=== PATIENT | female | born 1985 | race Two or more races ===

== ENCOUNTER 2022-08-04 21:11 | Emergency (ER) | payer MEDICAID, OTHER, SELFPAY ==
[2022-08-04 22:25] VITALS: BP 123/78; PULSE 105; RESP 18; TEMP 38.1; O2SAT 98; BMI 29.2
[2022-08-04 22:59] LABS: COVID-19 Test Negative (Negative)
[2022-08-04 23:03] LABS: IDNOW Serial# 55D5AD1C; Influenza A Positive (Negative); Influenza B2 Negative (Negative)
[2022-08-05 01:40] VITALS: BP 122/72; PULSE 102; RESP 19; TEMP 37.1; O2SAT 98
[2022-08-05 06:00] VITALS: BP 119/61; PULSE 100; RESP 20; TEMP 37.3; O2SAT 98
[2022-08-05 08:31] LABS: Appearance Urine Clear; Color Urine Yellow; Glucose Urine UA Negative (Negative); Leukocyte Esterase Urine Negative (Negative); Nitrite Urine Negative (Negative); PH 5.5 (5.0-9.0); Urine Blood Negative (Negative); Urine Ketones Negative (Negative); Urine Protein Negative (Neg-Trace)
--- NOTE | 2022-08-05 08:46 | ED_ITS ---
HPI - General Adult General Chief complaint: General Medical Stated complaint: lower back pain, leg pain Time Seen by Provider: 08/05/22 07:57 Source: patient Mode of arrival: ambulatory Limitations: no limitations History of Present Illness HPI narrative: 37 yo female presents to the ER with acute on chronic low back pain, bilateral heel pain for the last few days as well as intermittent chest marvin pains. She a lso has nasal congestion and body aches. She denies fever, SOB, N/V/D or abdominal pain. She reports her low back pain has been present for the last 6 months but acutely worsened the last week or so without any trauma or injury. No radiation of the pain, it is worse with movement. She also reports bilateral heel pain, present chronically and worse in the mornings. Her chest pain is worse with movement and palpation. It comes and goes and not currently present. MD complaint: back pain, feet pain, chest pain Onset (ago): week(s) (1) Location: chest and back Severity: moderate Severity scale (1-10): 6 Quality: aching Pain Consistency: intermittent Relieving factors: rest Exacerbating factors: movement Associated symptoms: chest pain, headaches, loss of appetite and malaise Treatments prior to arrival: none Related Data Previous Rx's Medication Instructions Recorded ibuprofen 600 mg tablet 600 mg PO Q8H PRN pain #14 tabs 08/05/22 lidocaine 5 % topical patch 1 patch topical DAILY #15 ea 08/05/22 Allergies Allergy/AdvReac Type Severity Reaction Status Date / Time No Known Allergies Allergy Unverified 07/24/20 17:18 [No Known Allergies*] Review of Systems Review of Systems: Constitutional: No Fever, No Chills ENT/Mouth: + sore throat, No Rhinorrhea, No Swallowing Difficulty Eyes: No Eye Pain, No Swelling, No Redness Cardiovascular: + Chest Pain, No SOB, No Orthopnea, No Edema Respiratory: No Cough, No Sputum, No Wheezing, No dyspnea Gastrointestinal: No Nausea, No Vomiting, No Diarrhea, No abdominal Pain Genitourinary: No Dysuria, No Urinary Frequency, No Hematuria Musculoskeletal: + joint pain, + Myalgias Skin: No Skin Lesions, No rash Neuro: No Weakness, No Numbness, No Dizziness, + Headache Psych: No Anxiety/Panic, No Depression Heme/Lymph: No Bruising, No Lymphadenopathy PMFSH Social History Social History Advance Directives: No Advance Directives Information Provided: No Physical Exam ED Vital Signs: Vital Signs - 24 hr 08/04/22 22:25 08/05/22 01:40 08/05/22 06:00 Temperature 100.5 F H 98.8 F 99.2 F Pulse Rate 105 H 102 H 100 Respiratory Rate 18 19 20 Blood Pressure 123/78 122/72 119/61 Pulse Oximetry 98 98 98 Oxygen Delivery Method Room Air Room Air Room Air BMI result Body Mass Index 29.2 Appearance: Alert. Oriented X3. No acute distress. Eyes: Pupils equal, round and reactive to light. ENT: Pharynx normal. Neck: Normal inspection. Neck supple. CVS: Normal heart rate and rhythm. Pulses normal. Respiratory: No respiratory distress. Breath sounds normal. Abdomen: Soft and nontender. +BS x4 Back: lumbar area with soft tissue tenderness bilaterally, no midline tenderness. no CVA tenderness. normal ROM. Skin: Skin warm and dry. Normal skin color. Normal skin turgor. No rashes. Extremities: No lower extremity edema. Bilateral calcaneous tenderness. Neuro: Oriented X 3. No motor deficit. No sensory deficit. Course Course Course Narrative: 29-year-old female presents to the ER with acute on chronic low back pain, feet pain as well as intermittent chest pains. Her pain in her chest seems to be in her chest wall, it is reproducible. She also has nasal congestion and some URI symptoms. She was tested for COVID in triage and turned up to be COVID positive. This can explain her exacerbation and her muscular pain. She also has pain in her bilateral heels, this is consistent with bilateral plantar fasciitis. We discussed this diagnosis and management. At this time she is stable for discharge home with NSAIDs as needed for back pain. Her COVID symptoms seem to be mild at this time. She is unvaccinated with no pre-existing pulmonary conditions. Return precautions were discussed. Stable for DC. Medical Decision Making Lab Data Labs: Lab Results 08/04/22 08/04/22 08/05/22 Range/Units 22:34 22:34 08:21 Urine Color Yellow Urine Appearance Clear Urine pH 5.5 (5.0-9.0) Ur Specific [place] 1.010 (1.005-1.025) Urine Protein Negative (Neg-Trace) mg/dL Urine Glucose (UA) Negative (Negative) mg/dL Urine Ketones Negative (Negative) mg/dL Urine Blood Negative (Negative) Urine Nitrite Negative (Negative) Ur Leukocyte Esterase Negative (Negative) COVID-19 (JEZ) Negative (Negative) COVID-19 Clin Com See Note Influenza Type A (MACIEJ) Positive A (Negative) Influenza Type B (MACIEJ) Negative (Negative) Influenza A & B Note See Note Discharge Plan Discharge Clinical Impression: COVID-19 Patient Disposition: Home, Self-Care Instructions: Covid-19 Viral Syndrome and Novel Coronavirus (ED) Hey/Ath, Plantar Fasciitis (ED) Additional Instructions: You were found to be COVID-19 POSITIVE today. Your urine test was normal. Your exam and oxygen levels were normal. Rest. Drink plenty of fluids. Do not go out in public while you are not feeling well. Take over the counter cold/flu medications as needed for your symptoms. Take Tylenol and/or Motrin as needed for fevers and body aches. Follow up with your doctor this week. If you develop new or worsening symptoms call 911 or come back to the ER for further evaluation. Prescriptions: New ibuprofen 600 mg tablet 600 mg PO Q8H PRN (Reason: pain) Qty: 14 0RF lidocaine 5 % adhesive patch,medicated 1 patch topical DAILY Qty: 15 0RF Rx Instructions: leave on most painful area for up to 12 hrs Stand Alone Forms: Work/School Release
== END 2022-08-05 11:05 | disposition home or self-care (01) ==
PROVIDERS: Physician Assistant; Emergency Provider Emergency Medicine
DX: U07.1 COVID-19 (principal); J11.1 Influenza due to unidentified influenza virus with other respiratory manifestations; M54.50 Low back pain, unspecified; M72.2 Plantar fascial fibromatosis
CPT/HCPCS: 81003; 87502; 87635; 99283

== ENCOUNTER 2023-01-11 12:13 | Outpatient (REF) | payer MEDICAID, OTHER, SELFPAY ==
--- NOTE | ~2023-01-11 | XR_ITS ---
EXAMINATION: LUMBAR SPINE AND LEFT SHOULDER. CLINICAL INFORMATION: Low back pain COMPARISON: None TECHNIQUE: Lumbar spine 3 views. Left shoulder 4 views. FINDINGS: Lumbar spine: There is normal lumbar lordosis. The vertebral heights and alignment are normal. There is loss of L5-S1 disc height. Rest of the disc heights are normal. There is no acute fracture, dislocation or lytic process seen. The paravertebral soft tissues are normal. SI joints are symmetrical and normal. Left shoulder: The glenohumeral joint space and AC joint space is preserved. No visible acute fracture, dislocation or subluxation seen. No soft tissue calcification seen. XR/XR lumbar spine 2-3V IMPRESSION: 1. Mild degenerative disc changes L5-S1 disc level. No visible acute fracture, dislocation or lytic process seen. 2. Unremarkable left shoulder exam.
--- NOTE | ~2023-01-11 | XR_ITS ---
EXAMINATION: LUMBAR SPINE AND LEFT SHOULDER. CLINICAL INFORMATION: Low back pain COMPARISON: None TECHNIQUE: Lumbar spine 3 views. Left shoulder 4 views. FINDINGS: Lumbar spine: There is normal lumbar lordosis. The vertebral heights and alignment are normal. There is loss of L5-S1 disc height. Rest of the disc heights are normal. There is no acute fracture, dislocation or lytic process seen. The paravertebral soft tissues are normal. SI joints are symmetrical and normal. Left shoulder: The glenohumeral joint space and AC joint space is preserved. No visible acute fracture, dislocation or subluxation seen. No soft tissue calcification seen. XR/XR shoulder LT min 2V IMPRESSION: 1. Mild degenerative disc changes L5-S1 disc level. No visible acute fracture, dislocation or lytic process seen. 2. Unremarkable left shoulder exam.
== END 2023-01-11 12:14 | disposition home or self-care (01) ==
LOC: HO.XRAY 12:13
PROVIDERS: PCP Family Medicine; Visit Provider Family Medicine
DX: M54.50 Low back pain, unspecified (principal); M25.512 Pain in left shoulder
CPT/HCPCS: 72100; 73030

== ENCOUNTER 2024-10-16 09:52 | Outpatient (REF) | payer MEDICAID, OTHER, SELFPAY ==
--- NOTE | ~2024-10-16 | MM_ITS ---
EXAMINATION: MM DIAGNOSTIC DIGITAL BREAST TOMOSYNTHESIS, BILATERAL Limited left breast ultrasound. CLINICAL INFORMATION: 39-year-old female with palpable left breast lump. COMPARISON: Mammography: Comparison is made with relevant prior exams. TECHNIQUE: Digital breast mammography with tomosynthesis is performed in both the craniocaudal and mediolateral oblique views along with computer-aided detection Limited left breast ultrasound. FINDINGS: The breasts are heterogeneously dense, which may obscure small masses (ACR BI-RADS breast composition Category c). There is a BB marker in the upper outer quadrant with an underlying 2 cm spiculated mass at posterior depth. No suspicious calcifications or other abnormal findings. Targeted color Doppler ultrasound scanning in the upper outer quadrant area of patient's pain demonstrates a irregular solid mass at 3:00 13 cm from nipple measuring 18 x 17 x 13 mm which correlates with the spiculated mass seen on mammography. Targeted ultrasound scanning in the retroareolar region and upper central breast and upper outer quadrant otherwise demonstrates normal fibroglandular breast tissue. Targeted color Doppler ultrasound scanning in the left axilla demonstrates a irregular mass which could represent a replaced lymph node. Otherwise there are a few normal axillary lymph nodes. Results are provided to the patient at time of visit by the technologist. MM/MM tomosynthesis diagnostic BI IMPRESSION: Solid irregular mass at 3:00. Recommend histology with ultrasound-guided core needle biopsy at this time. The findings and recommendations were discussed with the patient the procedure will be scheduled. Solid mass in the left axilla. Ultrasound-guided core needle biopsy is recommended at this time. The findings and recommendations were discussed with the patient the procedure will be scheduled. The patient has dense breast tissue. Recommend breast MRI for further evaluation. ASSESSMENT: BI-RADS BI-RADS 4 - Suspicious finding RECOMMENDATION: Left breast biopsy and left axillary biopsy recommended at this time. This patient's information was entered into a reminder system with a target due date for their next mammogram. Electronically signed by: Dulce Richardson DO 10/16/2024 11:27 AM HAN
== END 2024-10-16 09:53 | disposition home or self-care (01) ==
LOC: HO.MAMMO 09:52
PROVIDERS: Visit Provider Family Medicine
DX: N63.23 Unspecified lump in the left breast, lower outer quadrant (principal)
CPT/HCPCS: 76642; 77062; 77066

== ENCOUNTER → 2024-10-16 10:00 | Outpatient (BNV) | payer MEDICAID, SELFPAY | PROVIDERS: Visit Provider Internal Medicine | DX: N63.23 Unspecified lump in the left breast, lower outer quadrant (principal) | CPT/HCPCS: 76642; 77062; 77066 ==

== ENCOUNTER 2024-11-02 14:47 | Outpatient (REF) | payer MEDICAID, OTHER, SELFPAY ==
--- NOTE | ~2024-11-02 | MR_ITS ---
EXAMINATION: MR BREAST WITHOUT AND WITH CONTRAST, BILATERAL CLINICAL INFORMATION: Suspicious areas seen on recent mammogram and ultrasound of the left breast for which biopsy is recommended and scheduled. COMPARISON: Comparison is made to available prior examinations including diagnostic mammogram and ultrasound October 16, 2024. TECHNIQUE: MR imaging of the breast was performed using T1, T2 and fat saturated techniques. Dynamic multiphase imaging was also performed after administration of intravenous gadolinium contrast agent. Computer generated 3-D reconstruction was utilized by the radiologist in the interpretation of this examination. FINDINGS: There is extreme dense fibroglandular breast tissue with moderate background enhancement with bilateral scattered enhancing foci. LEFT BREAST: There is a solid irregular enhancing mass in the central outer left breast far posterior depth 3:00 15 cm from the nipple measuring 21 mm anterior to posterior by 19 mm transverse by 21 mm superior to inferior series 1033 image 95/136. Enlarged left axillary lymph node seen on prior diagnostic left axillary ultrasound which is scheduled for biopsy today series 1033 image 34/136. No other suspicious enhancing masses or areas of nonmass enhancement. No architectural distortion. No internal mammary adenopathy. RIGHT BREAST: A few scattered enhancing foci in the upper outer breast series 1033 images 77 [id number] 62/136. These likely represent background foci of enhancement. Question prominent axillary lymph node series 1033 image 32/136. No other suspicious enhancing masses or areas of nonmass enhancement. No architectural distortion. No internal mammary adenopathy. Limited views of the chest and abdomen are unremarkable. MR/MR breast BI wo/w con IMPRESSION: Left: Suspicious irregular solid mass in the central outer left breast far posterior depth and enlarged axillary lymph node. Patient is scheduled for ultrasound-guided core needle biopsy of both areas today. Right: 1. Probably benign enhancing foci in the upper outer right breast for which second look MRI directed ultrasound is recommended and if normal a six-month follow-up MRI is recommended for further evaluation of stability. Second look MRI directed ultrasound was be performed today and was benign therefore six month followup MRI recommended. 2. Question prominent axillary lymph nodes. Ultrasound is recommended and was be performed today confirming normal axillary tissue. ASSESSMENT: LEFT BREAST: BI-RADS 4 suspicious. RIGHT BREAST: BI-RADS 3 probably benign. Recommend six-month follow-up MRI for further evaluation of stability. RECOMMENDATIONS: BI-RADS 4 suspicious findings in the left breast. Ultrasound-guided core needle biopsy is recommended and will be performed today. Recommend 6 month follow-up breast MRI for further evaluation of stability probably benign enhancing foci in the right breast. Electronically signed by: Dulce Richardson DO 11/08/2024 12:14 PM HAN
[2024-11-02] MEDS: gadobutroL 7.5 ML VIAL IVPUSH (16:17)
== END 2024-11-02 14:48 | disposition home or self-care (01) ==
LOC: HO.MRI 14:47
PROVIDERS: Visit Provider Family Medicine
DX: R92.8 Other abnormal and inconclusive findings on diagnostic imaging of breast (principal); N63.21 Unspecified lump in the left breast, upper outer quadrant
CPT/HCPCS: 77049; A9585

== ENCOUNTER → 2024-11-02 15:19 | Outpatient (BNV) | payer MEDICAID, SELFPAY | PROVIDERS: Visit Provider Internal Medicine | DX: N63.21 Unspecified lump in the left breast, upper outer quadrant (principal); R92.8 Other abnormal and inconclusive findings on diagnostic imaging of breast | CPT/HCPCS: 77049 ==

== ENCOUNTER 2024-11-08 08:23 | Outpatient (AMB) | payer MEDICAID, SELFPAY ==
[2024-11-08 08:26] VITALS: BP 132/74; PULSE 88; BMI 30.4
--- NOTE | 2024-11-08 08:26 | A.OFFVIS_ITS ---
Vital Signs 3 11/08/24 08:26 Height 5 ft 1 in Weight 161 lb BMI 30.4 BP 132/74 Blood Pressure Location Rt brachial Position Sitting Pulse 88 Intake Visit Reasons: Breast consultation before 10am mammo appt Intake Note: Patient referred by [facility] for consultation before Lt br bx. Patient c/o: lump on Lt br painful at times. Denies rash, nipple discharge. No family hx of breast CA> Cytopathologist Required: No Accompanied by: Mother Nilxa Allergies No Known Allergies [No Known Allergies*] Allergy (Unverified 11/08/24 08:29) Medication List - Last Reconciled 11/08/24 by Mariusz Lassiter MD ibuprofen 600 mg PO Q8H PRN lidocaine 5% 1 patch topical DAILY HPI Comments Details: 39-year-old female patient presenting with a 2 month history of a palpable mass located in the left breast at the outer quadrant. She denies any recent changes in the size of the lump and denies a previous history of breast surgery. She did have a previous lump located in the nipple area which was determined to be benign many years ago. She reports some pain associated with the new lump in the left breast. She denies a family history of breast problems breast cancer. She is with a 17-year-old and 7-year-old child. She underwent evaluation with a mammogram bilateral and ultrasound left breast which confirmed a density in the 3 o'clock position and axilla felt to be suspicious for malignancy. She is scheduled for a ultrasound-guided [facility] Medical History delivery delivered Social History Alcohol intake: never Patient Tobacco Use Status: Never used Tobacco Review of Systems Const All systems reviewed & are unremarkable except as noted in HPI and below Physical Exam Vital Signs: Last Vital Signs Pulse 88 11/08/24 08:26 BP 132/74 11/08/24 08:26 BMI result Body Mass Index 30.4 Const General: cooperative and no acute distress Nutritional Appearance: well nourished Orientation/consciousness: patient oriented x3 Limitations: no limitations HEENT Head: Yes normocephalic and Yes atraumatic Ears: hearing grossly normal bilaterally Chest Other: Left breast: No skin change, no nipple retraction, no nipple discharge, palpable fullness in the upper outer quadrant left breast, mobile within the breast tissue with no overlying skin changes and no fixation the chest wall, no definitely an enlarged lymph nodes palpable. Right breast: No skin change, no nipple retraction, no nipple discharge, palpable area of fullness in the 9 o'clock position mobile within the breast tissue suggestive of thickened breast tissue, no enlarged lymph nodes Chest/axillae images: 2 1. Site of palpable density Resp Effort & Inspection: normal respiratory effort, no audible wheezes, no cough and no respiratory distress Cardio Jugular venous distension: no JVD GI Inspection: Yes normal to inspection Skin Other: Warm, dry, no rash Neuro General: patient oriented x3 Extrem General: Yes no clubbing, cyanosis or edema Assessment & Plan Assessment & Plan (1) delivery delivered: Code(s): O82 - Encounter for delivery without indication (2) Left breast mass: Code(s): N63.20 - Unspecified lump in the left breast, unspecified quadrant Category: Medical Qualifiers: Breast mass location: overlapping quadrants Qualified Code(s): N63.25 - Unspecified lump in the left breast, overlapping quadrants (3) Abnormal mammogram of left breast: Code(s): R92.8 - Other abnormal and inconclusive findings on diagnostic imaging of breast Category: Medical (4) Abnormal ultrasound of breast: Code(s): R92.8 - Other abnormal and inconclusive findings on diagnostic imaging of breast Category: Medical Plan 39-year-old female patient with a 2 month history of a palpable breast mass in the left breast at the 3 o'clock position. Workup with mammogram and ultrasound revealed a suspicious density for which an ultrasound-guided core biopsy is scheduled for later today. An MRI was performed but the report is not available at the time of this dictation. I recommended follow-up in approximately 1 week once the pathology results were back to discuss treatment options. She expressed understanding and agrees with the plan. Orders: Orders 2 US breast ndl core bio ea add Today N63.20 - Unspecified lump in the left breast, unspecified quadrant, R92.8 - Other abnormal and inconclusive findings on diagnostic imaging of breast US breast ndl core biopsy LT Today N63.20 - Unspecified lump in the left breast, unspecified quadrant, R92.8 - Other abnormal and inconclusive findings on diagnostic imaging of breast Coding Level of Care Code New Pt Level 4 (61217) Diagnoses delivery delivered O82 Mass overlapping multiple quadrants of left breast N63.25 Breast mass location: overlapping quadrants Abnormal mammogram of left breast R92.8 Abnormal ultrasound of breast R92.8
== END 2024-11-08 08:54 | disposition home or self-care (01) ==
LOC: HO.HGS 08:23
PROVIDERS: Visit Provider Surgery
DX: O82 Encounter for cesarean delivery without indication (principal); N63.25 Unspecified lump in the left breast, overlapping quadrants; R92.8 Other abnormal and inconclusive findings on diagnostic imaging of breast
CPT/HCPCS: 99204

== ENCOUNTER 2024-11-08 09:00 | Outpatient (REF) | payer MEDICAID, OTHER, SELFPAY ==
--- NOTE | ~2024-11-08 | US_ITS ---
EXAMINATION: US DIAGNOSTIC ULTRASOUND BREAST, RIGHT CLINICAL INFORMATION: Suspicious masses in the left breast ultrasound and left axilla here today for core needle biopsy of both areas. Recent breast MRI demonstrated probably benign enhancing foci in the right breast upper outer quadrant and questionable prominent right axillary lymph nodes. Ultrasound to evaluate area seen on MRI.. COMPARISON: Comparison is made with relevant prior imaging. TECHNIQUE: Ultrasound of the breast is performed with real-time melendrez scale imaging and color Doppler. FINDINGS: Targeted color Doppler ultrasound scanning in the upper outer quadrant area of enhancing foci seen on recent MRI demonstrates normal fibronodular breast tissue. There is an incidental simple cyst at 10:00 2 cm from nipple measuring 7 x 8 x 6 mm. This is benign. There is no sonographic abnormality. Targeted color Doppler ultrasound in the axilla demonstrates normal axillary tissue. There is no sonographic abnormality. Results are discussed with the patient at time of visit. US/US breast RT limited mamm only IMPRESSION: Right: 1. No sonographic abnormality to account for the enhancing foci in the upper outer quadrant of the right breast on recent MRI. Recommend 6 month follow-up MRI for further evaluation of stability. 2. Simple cyst on ultrasound. Benign. 3. Normal axillary tissue without evidence of abnormal lymph node. Negative. ASSESSMENT: BI-RADS 2: Benign RECOMMENDATION: Recommend biopsy of suspicious left axillary lymph node and left breast mass at this time. The biopsy will be performed today. Recommend 6 month follow-up MRI for further evaluation of stability probably benign enhancing foci in the right breast on MRI. This patient's information was entered into a reminder system with a target due date for their next mammogram. Electronically signed by: Dulce Richardson DO 11/08/2024 12:12 PM HAN
--- NOTE | ~2024-11-08 | MM_ITS ---
ADDENDUM #1 ADDENDUM: Ultrasound-guided core needle biopsy 3:00 mass left breast: Invasive ductal carcinoma and ductal carcinoma in situ. Results are malignant and concordant. Recommend breast surgical consultation for excision and further management. Ultrasound-guided core needle biopsy left axilla demonstrates fibrovascular tissue no lymph node or breast tissue present for evaluation. These findings are benign but DISCORDANT. Recommend excision of this left axillary abnormal lymph node. Electronically signed by: Dulce Richardson DO 11/19/2024 01:42 PM EST RP ORIGINAL REPORT EXAMINATION: ULTRASOUND GUIDED CORE BIOPSY BREAST, LEFT Breast AND LEFT AXILLA. POST PROCEDURE DIGITAL MAMMOGRAM, LEFT CLINICAL INFORMATION: Suspicious left breast mass and left axillary lymph node. COMPARISON: Comparison is made with available prior examinations. FINDINGS: Proper informed consent is obtained from the patient after discussion of the procedure, potential risks and complications, and alternatives. Patient was given an opportunity for questions. The patient appeared to understand. The patient consented to the procedure and signed the consent form . Left Breast: GUIDANCE: Ultrasound-guided; aseptic technique. LESION: Solid irregular mass at 3-4:00 15 mm from nipple. ANESTHESIA: 10 mL 1% lidocaine. NEEDLE: 14-gauge. CLIP: open coil Left Axilla: GUIDANCE: Ultrasound-guided; aseptic technique. LESION: Englarge left axillary lymph node. ANESTHESIA: 10 mL 1% lidocaine. NEEDLE: 14-gauge. CLIP butterfly shaped metallic clip. POST PROCEDURE UNILATERAL DIGITAL MAMMOGRAM: The post biopsy mammogram is performed in separate room using separate digital mammography equipment from the biopsy procedure Clip is in satisfactory positioning both the left breast and axilla. The patient tolerated the procedure well. No immediate complications. Home instructions reviewed with the patient. Final pathology results are pending. IMPRESSION: 1. Status post ultrasound-guided core biopsy left breast and left axilla. 2. Pathology pending. An addendum report will be issued. Electronically signed by: Dulce Richardson DO 11/08/2024 01:01 PM EST RP MM/MM tomosynthesis diagnostic LT IMPRESSION: 1. Status post ultrasound-guided core biopsy left breast and left axilla. 2. Pathology pending. An addendum report will be issued. Electronically signed by: Dulce Richardson DO 11/08/2024 01:01 PM HAN
[2024-11-08] MEDS: Lidocaine HCl 1 % 20 ML VIAL SUBCUT (11:19)
[2024-11-08] MEDS: Sodium Bicarbonate 8.4% 50 MEQ/50 ML VIAL SUBCUT (11:20)
== END 2024-11-08 09:01 | disposition home or self-care (01) ==
LOC: HO.MAMMO 09:00
PROVIDERS: PCP Family Medicine; Visit Provider Surgery
DX: C50.812 Malignant neoplasm of overlapping sites of left female breast (principal); R92.8 Other abnormal and inconclusive findings on diagnostic imaging of breast
CPT/HCPCS: 19083; 19084; 76642; 77061; 77065; 88305; 88341; 88342; 88360; 99202; A4648; C1894; J2003

== ENCOUNTER → 2024-11-08 10:00 | Outpatient (BNV) | payer MEDICAID, SELFPAY | PROVIDERS: PCP Family Medicine; Visit Provider Internal Medicine | DX: N63.23 Unspecified lump in the left breast, lower outer quadrant (principal) | CPT/HCPCS: 19083; 19084; 76642; 77065 ==

== ENCOUNTER 2024-11-16 10:42 | Outpatient (AMB) | payer MEDICAID, SELFPAY ==
--- NOTE | 2024-11-16 10:32 | A.OFFVIS_ITS ---
Vital Signs 3 11/16/24 10:38 Height 5 ft 1 in Weight 164 lb BMI 31.0 BP 125/60 Blood Pressure Location Lt brachial Position Sitting Pulse 80 Intake Visit Reasons: Biopsy results Intake Note: Patient is seen in office for biopsy results, following abnormal mammogram of the left breast. Pt c/o:admits to sore and tender around the left axilla Sight Effects Specialist Required: No Accompanied by: Family/Other Allergies No Known Allergies [No Known Allergies*] Allergy (Unverified 11/16/24 10:47) Medication List - Last Reconciled 11/20/24 by Mariusz Lassiter MD ibuprofen 600 mg PO Q8H PRN lidocaine 5% 1 patch topical DAILY HPI Comments Details: 39-year-old female patient presenting with a 2 month history of a palpable mass located in the left breast at the outer quadrant. She denies any recent changes in the size of the lump and denies a previous history of breast surgery. She did have a previous lump located in the nipple area which was determined to be benign many years ago. She reports some pain associated with the new lump in the left breast. She denies a family history of breast problems breast cancer. She is with a 17-year-old and 7-year-old child. She underwent evaluation with a mammogram bilateral and ultrasound left breast which confirmed a density in the 3 o'clock position and axilla felt to be suspicious for malignancy. She underwent ultrasound-guided core biopsy on 11/08/2024 at the [facility]. 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 Biopsy of a left axillary node revealed fibrovascular tissue only with no lymph node or breast tissue present for evaluation. Immunohistochemical stains: Estrogen receptor positive, progesterone receptor positive, HER2 Ruth negative, Ki-67 low. ([id number]). 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 delivery delivered Social History Alcohol intake: never Patient Tobacco Use Status: Never used Tobacco Review of Systems Const All systems reviewed & are unremarkable except as noted in HPI and below Physical Exam Vital Signs: Last Vital Signs Pulse 80 11/16/24 10:38 BP 125/60 11/16/24 10:38 BMI result Body Mass Index 31.0 Const General: cooperative and no acute distress Nutritional Appearance: well nourished Orientation/consciousness: patient oriented x3 Limitations: no limitations HEENT Head: Yes normocephalic and Yes atraumatic Ears: hearing grossly normal bilaterally Chest Other: Left breast: No skin change, no nipple retraction, no nipple discharge, palpable fullness in the upper outer quadrant left breast, mobile within the breast tissue with no overlying skin changes and no fixation the chest wall, no definitely an enlarged lymph nodes palpable. Right breast: No skin change, no nipple retraction, no nipple discharge, palpable area of fullness in the 9 o'clock position mobile within the breast tissue suggestive of thickened breast tissue, no enlarged lymph nodes Chest/axillae images: 2 1. Palpable mass 3 o'clock position left breast Resp Effort & Inspection: normal respiratory effort, no audible wheezes, no cough and no respiratory distress Cardio Jugular venous distension: no JVD GI Inspection: Yes normal to inspection Skin Other: Warm, dry, no rash Neuro General: patient oriented x3 Extrem General: Yes no clubbing, cyanosis or edema Assessment & Plan Assessment & Plan (1) Invasive ductal carcinoma of left breast: Code(s): C50.912 - Malignant neoplasm of unspecified site of left female breast Category: Medical (2) Ductal carcinoma in situ of left breast: Code(s): D05.12 - Intraductal carcinoma in situ of left breast Category: Medical (3) Abnormal mammogram of left breast: Code(s): R92.8 - Other abnormal and inconclusive findings on diagnostic imaging of breast Category: Medical (4) Abnormal ultrasound of breast: Code(s): R92.8 - Other abnormal and inconclusive findings on diagnostic imaging of breast Category: Medical Plan 39-year-old female patient with a 2 month history of a palpable breast mass in the left breast at the 3 o'clock position. Subsequent ultrasound-guided core biopsy revealed an invasive ductal carcinoma with DCIS. We discussed the surgical options including left breast lumpectomy with localizer and left axillary sentinel node biopsy. After discussion of the procedure, risks, and alternatives, she consents to the surgery. Coding Level of Care Code Est Pt Level 3 (32771) Diagnoses Invasive ductal carcinoma of left breast C50.912 Ductal carcinoma in situ of left breast D05.12 Abnormal mammogram of left breast R92.8 Abnormal ultrasound of breast R92.8
[2024-11-16 10:38] VITALS: BP 125/60; PULSE 80; BMI 31.0
== END 2024-11-16 11:23 | disposition home or self-care (01) ==
PROVIDERS: Visit Provider Surgery
DX: C50.812 Malignant neoplasm of overlapping sites of left female breast (principal); R92.8 Other abnormal and inconclusive findings on diagnostic imaging of breast
CPT/HCPCS: 99213

== ENCOUNTER → 2024-11-16 10:42 | Outpatient (BNVA) | payer MEDICAID, OTHER, SELFPAY | PROVIDERS: Visit Provider Surgery | DX: R92.8 Other abnormal and inconclusive findings on diagnostic imaging of breast (principal); D05.12 Intraductal carcinoma in situ of left breast | CPT/HCPCS: 99212 ==

== ENCOUNTER 2024-11-29 08:50 | Outpatient (REF) | payer MEDICAID, OTHER, SELFPAY ==
--- NOTE | ~2024-11-29 | US_ITS ---
EXAMINATION: ULTRASOUND GUIDED RF ID TAG LOCALIZATION OF LEFT BREAST, UNILATERAL LEFT DIAGNOSTIC MAMMOGRAM Ultrasound-guided RF ID tag localization of the left axilla. HISTORY: Female, 39 years of age, scheduled for needle localization of biopsy-proven invasive ductal carcinoma in her left breast. A clip with coil shape indicates the site of prior biopsy. Enlarged left axillary lymph node with benign pathology however was discordant and therefore tag localization was requested. PROCEDURE: The entire procedure was explained to the patient who gave written consent. A pre-procedure timeout confirmed the name and date of the patient as well as the sideand sites of the lesion to be localized (LEFT). Mass at 3-4 o'clock 15 cm from the nipple: The lesion was localized under ultrasound. Using aseptic technique and 2% Lidocaine for local anesthesia, a 5 cm TAG needle was advanced into the lesion under ultrasound guidance until the tip of the needle was in appropriate position. The RFID TAG was placed adjacent to the coil marker clip. Left axilla enlarged lymph node: The axillary node was localized under ultrasound. Using aseptic technique and lidocaine for local anesthesia a 7 cm tag needle was advanced into the lesion under ultrasound guidance until its tip of the needle was in appropriate position. The R FID TAG was placed at the enlarged lymph node in the axilla adjacent to the butterfly clip. Post procedure mammogram show the TAGs to be in good position relative to the lesions. There were no immediate complications. A sterile dressing was applied to the localization site. US/US Breast RF Tag Device Addl IMPRESSION: Technically successful RF ID localization of a mass in the LEFT breast under ultrasound guidance and enlarged left axillary lymph node. Electronically signed by: Dulce Richardson DO 11/30/2024 12:40 PM EST
--- NOTE | ~2024-11-29 | US_ITS ---
EXAMINATION: ULTRASOUND GUIDED RF ID TAG LOCALIZATION OF LEFT BREAST, UNILATERAL LEFT DIAGNOSTIC MAMMOGRAM Ultrasound-guided RF ID tag localization of the left axilla. HISTORY: Female, 39 years of age, scheduled for needle localization of biopsy-proven invasive ductal carcinoma in her left breast. A clip with coil shape indicates the site of prior biopsy. Enlarged left axillary lymph node with benign pathology however was discordant and therefore tag localization was requested. PROCEDURE: The entire procedure was explained to the patient who gave written consent. A pre-procedure timeout confirmed the name and date of the patient as well as the sideand sites of the lesion to be localized (LEFT). Mass at 3-4 o'clock 15 cm from the nipple: The lesion was localized under ultrasound. Using aseptic technique and 2% Lidocaine for local anesthesia, a 5 cm TAG needle was advanced into the lesion under ultrasound guidance until the tip of the needle was in appropriate position. The RFID TAG was placed adjacent to the coil marker clip. Left axilla enlarged lymph node: The axillary node was localized under ultrasound. Using aseptic technique and lidocaine for local anesthesia a 7 cm tag needle was advanced into the lesion under ultrasound guidance until its tip of the needle was in appropriate position. The R FID TAG was placed at the enlarged lymph node in the axilla adjacent to the butterfly clip. Post procedure mammogram show the TAGs to be in good position relative to the lesions. There were no immediate complications. A sterile dressing was applied to the localization site. US/US Breast RF Tag Device Left IMPRESSION: Technically successful RF ID localization of a mass in the LEFT breast under ultrasound guidance and enlarged left axillary lymph node. Electronically signed by: Dulce Richardson DO 11/30/2024 12:40 PM [facility]
== END 2024-11-29 08:51 | disposition home or self-care (01) ==
LOC: HO.MAMMO 08:50
PROVIDERS: PCP Family Medicine; Visit Provider Surgery
DX: C50.912 Malignant neoplasm of unspecified site of left female breast (principal)
CPT/HCPCS: 19285; 19286; 77061; 77065; C1819

== ENCOUNTER → 2024-11-29 09:58 | Outpatient (BNV) | payer MEDICAID, SELFPAY | PROVIDERS: PCP Family Medicine; Visit Provider Internal Medicine | DX: C50.812 Malignant neoplasm of overlapping sites of left female breast (principal) | CPT/HCPCS: 19285; 19286; 77065 ==

== ENCOUNTER 2024-12-03 06:43 | Day surgery (SDC) | payer MEDICAID, OTHER, SELFPAY ==
[2024-12-03] VITALS (11 sets, daily range): BP systolic 114–138; BP diastolic 63–95; PULSE 73–90; RESP 14–18; TEMP 36.1–36.7; O2SAT 97–100; BMI 28.9
--- NOTE | ~2024-12-03 | MM_ITS ---
Left axillary specimen radiograph demonstrates the butterfly clip and the tag within the specimen. Left breast specimen radiograph demonstrates the coil clip and the tag within the specimen. Electronically signed by: Dulce Richardson DO 12/03/2024 03:09 PM [facility]
--- NOTE | ~2024-12-03 | NM_ITS ---
EXAMINATION: Nuclear medicine sentinel node imaging. CLINICAL INDICATION: Left breast intraductal carcinoma. COMPARISON: Mammogram 11/29/2024. TECHNIQUE: Central lower procedure, benefits in risk were explained by Dr. Dunaway and informed consent obtained. 4% and lidocaine cream was applied are on the breast at 30 minutes. The area was then cleaned and draped in usual sterile manner. 0.5 mCi of 99m Tc lymphoseek divided in 4 equal doses was injected in 4 quadrants around the left breast areola and imaging was obtained approximately 20-30 minutes later. FINDINGS/ NM/NM sentinel node w imaging IMPRESSION: There is focal activity seen in 4 quadrants around the left breast following injection. There are 2 sentinel nodes seen in the left anterior axilla. Electronically signed by: Gurpreet Sumner MD 12/03/2024 01:20 PM [facility]
--- OUTSIDE RECORDS SUMMARY | 2024-12-03 06:45 | XMS_ITS | Encounter Summary ---
Author Organization [facility] Address [address] [place] [address] Care Team Providers Care Pot Pusher Name Role Phone Kimberli Patel MD Primary Care Provider [phone] Encounter Details Date Type Department Care Team (Latest Contact Info) Description 08/10/2019 Abstract [facility] CONVERSIONS Dental, Provider, DDS Social History Tobacco Use Types Packs/Day Years Used Date Smoking Tobacco: Never Assessed Comments Unknown Sex and Gender Information Value Date Recorded Sex Assigned at Female 09/06/2022 10:18 AM EDT Legal Sex Female 10:18 AM EDT Gender Identity Female 09/06/2022 10:18 AM EDT Sexual Orientation Straight 09/06/2022 10 :18 AM EDT documented as of this encounter Plan of Treatment Not on file documented as of this encounter Visit Diagnoses Not on filedocumented in this encounter Care Teams Pot Pusher Relationship Specialty Start Date End Date Kimberli Patel MD [address] [place] [address] PCP - General Family Medicine 11/24/21 documented as of this encounter
--- OUTSIDE RECORDS SUMMARY | 2024-12-03 06:45 | XMS_ITS | Encounter Summary ---
Author Organization [employer] Address [address] [place] [address] Care Team Providers Care It Senior Analyst Name Role Phone Kimberli Patel MD Primary Care Provider [phone] Encounter Details Date Type Department Care Team ([facility] Contact Info) Description 11/08/2024 Orders Only [facility] External Provider, [facility] Social History Tobacco Use Types Packs/Day Years Used Date Smoking Tobacco: Never Passive Smoke Exposure: Never Smokeless Tobacco: Never Alcohol Use Standard Drinks/Week Comments Never 0 (1 standard drink = 0.6 oz pur e alcohol) Depression Answer Date Recorded Patient Health Questionnaire-9 Score 0 01/04/2023 Housing Stability Answer Date Recorded What is your housing situation today? I have cameron lopez 09/05/[address] you li ve. Do you have problems with any of the following? None of the above 09/05/2023 Food Insecurity Answer Date Recorded Within the past 12 months, y ou worried that your food would run out before you got money to buy more: Never True 09/05/2023 Within the past 12 months,th e food you bought just didn't last and you didn't have enough money to get more: Never True Transportation Answer Date Recorded In the past 12 months, has l ack of transportation kept you from medical appts, meetings, work or from getting things needed for daily living? No 09/05/2023 Utilities Answer Date Recorded In the past 12 months, has t he electric, gas, oil or water company threatened to shut off services in your home? No 09/05/2023 Depression Answer Date Recorded Patient Health Questionnaire-2 Score 0 01/04/2023 Comments Unknown Sex and Gender Information Value Date Recorded Sex Assigned at Female 09/06/2022 10:18 AM EDT Legal Sex Female 10:18 AM EDT Gender Identity Female 09/06/2022 10:18 AM EDT Sexual Orientation Straight 09/06/2022 10 :18 AM EDT documented as of this encounter Plan of Treatment Not on file documented as of this encounter Procedures Procedure Name Priority Date/Time Associated Diagnosis Comments BI MAMMOGRAM DIAGNOSTIC TOMOSYNTHESIS LEFT Routine 11/29/2024 9:58 AM EST BI MAMMOGRAM DIAGNOSTIC TOMOSYNTHESIS LEFT Routine 11/08/2024 11:02 AM EST HEMATOXYLIN AND EOSIN STAIN Routine 11/08/2024 10:34 AM EST US BREAST NDL CORE BIO EA ADD Routine 11/08/2024 10:00 AM EST BI US BREAST LIMITED RIGHT Routine 11/08/2024 10:00 AM EST BI MR GUIDED BREAST BIOPSY LEFT Routine 11/08/2024 10:00 AM EST documented in this encounter Results * BI Mammogram Diagnostic Tomosynthesis Left (11/29/2024 9:58 AM EST) Anatomical Region Laterality Modality Breast Left Mammography 11/29/2024 9:58 AM EST Narrative 11/30/2024 12:43 PM EST ? [facility] ? [address] ?[place] [address] ? Mammography Report ? Signed ? Patient: Jackson,Yeny V ?MR#: [id number] ?? [id number] ? : 1985 ?Acct:[id number] ? Age/Sex: 39 / F ?ADM Date: 01/23/25 ? Loc: HO.MAMMO ? Attending Dr: Mariusz Lassiter MD ? Ordering Physician: Mariusz Lassiter MD ?Results: 1Nega ?? tive ? Date of Service: 11/29/24 ?Follow Up: 1 Year From Orig ?? inal Mammogram ? Procedure(s): MM tomosynthesis diagnostic LT ?? Accession Number(s): [id number] ? cc: Mariusz Lassiter MD; Kimberli Patel MD ? EXAMINATION: ?? ULTRASOUND GUIDED RF ID TAG LOCALIZATION OF LEFT BREAST, UNILATERAL ?? LEFT DIAGNOSTIC MAMMOGRAM ?? Ultrasound-guided RF ID tag localization of the left axilla. ? HISTORY: ?? Female, 39 years of age, scheduled for needle localization of ?? biopsy-proven invasive ductal carcinoma in her left breast. A clip with ?? coil shape indicates the site of prior biopsy. ?? Enlarged left axillary lymph node with benign pathology however was ?? discordant and therefore tag localization was requested. ? PROCEDURE: ?? The entire procedure was explained to the patient who gave written ?? consent. ??A pre-procedure timeout confirmed the name and date of ?? the patient as well as the sideand sites ??of the lesion to be localized ?? (LEFT). ? Mass at 3-4 o'clock 15 cm from the nipple: ?? The lesion was localized under ultrasound. Using aseptic technique and ?? 2% Lidocaine ??for local anesthesia, a 5 cm TAG needle was advanced into ?? the lesion under ultrasound guidance until the tip of the needle was in ?? appropriate position. The RFID TAG ??was placed adjacent to the coil ?? marker clip. ? Left axilla enlarged lymph node: ?? The axillary node was localized under ultrasound. Using aseptic ?? technique and lidocaine for local anesthesia a 7 cm tag needle was ?? advanced into the lesion under ultrasound guidance until its tip of the ?? needle was in appropriate position. The R FID TAG was placed at the ?? enlarged lymph node in the axilla adjacent to the butterfly clip. ? Post procedure mammogram show the TAGs to be in good position relative ?? to the lesions. There were no immediate complications. A sterile ?? dressing was applied to the localization site. ? MM/MM tomosynthesis diagnostic LT ?? IMPRESSION: ?? Technically successful RF ID localization of a mass in the LEFT breast ?? under ultrasound guidance and enlarged left axillary lymph node. ? Electronically signed by: ??Dulce Richardson DO ??11/30/2024 12:40 PM EST ? Dictated By: ?Dulce Richardson DO ? Signed By: ?<Electronically signed by Dulce Richardson, DO in OV> ? 11/30/24 1240 ? DD/ 0958 ? TD/TT: 11/29/24 1018 ? [employer]: ? Procedure Note Rosa Luu - 11/30/2024 [facility] [address] [place] [address] Mammography Report Signed Patient: Yeny Jackson R#: [id number] : 1985Acct:[id number] Age/Sex: 39 / FADM Date: 11/29/24 Loc: HO.MAMMO Attending Dr: Mariusz Lassiter MD Ordering Physician: Mariusz Lassiter MDResults: 1Nega tive Date of Service: 11/29/24Follow Up: 1 Year From Orig inal Mammogram Procedure(s): MM tomosynthesis diagnostic LT Accession Number(s): [id number] cc: Mariusz Lassiter MD; Kimberli Patel MD EXAMINATION: ULTRASOUND GUIDED RF ID TAG LOCALIZATION OF LEFT BREAST, UNILATERAL LEFT DIAGNOSTIC MAMMOGRAM Ultrasound-guided RF ID tag localization of the left axilla. HISTORY: Female, 39 years of age, scheduled for needle localization of biopsy-proven invasive ductal carcinoma in her left breast. A clip with coil shape indicates the site of prior biopsy. Enlarged left axillary lymph node with benign pathology however was discordant and therefore tag localization was requested. PROCEDURE: The entire procedure was explained to the patient who gave written consent. A pre-procedure timeout confirmed the name and date of the patient as well as the sideand sites of the lesion to be localized (LEFT). Mass at 3-4 o'clock 15 cm from the nipple: The lesion was localized under ultrasound. Using aseptic technique and 2% Lidocaine for local anesthesia, a 5 cm TAG needle was advanced into the lesion under ultrasound guidance until the tip of the needle was in appropriate position. The RFID TAG was placed adjacent to the coil marker clip. Left axilla enlarged lymph node: The axillary node was localized under ultrasound. Using aseptic technique and lidocaine for local anesthesia a 7 cm tag needle was advanced into the lesion under ultrasound guidance until its tip of the needle was in appropriate position. The R FID TAG was placed at the enlarged lymph node in the axilla adjacent to the butterfly clip. Post procedure mammogram show the TAGs to be in good position relative to the lesions. There were no immediate complications. A sterile dressing was applied to the localization site. MM/MM tomosynthesis diagnostic LT IMPRESSION: Technically successful RF ID localization of a mass in the LEFT breast under ultrasound guidance and enlarged left axillary lymph node. Electronically signed by: Dulce Richardson DO 11/30/2024 12:40 PM EST Dictated By: Dulce Richardson DO Signed By: <Electronically signed by Dulce Richardson DO in OV> 11/30/24 1240 DD/ 0958 TD/TT: 11/29/24 1018 [address] [address] [employer] [address]: [facility] External Provider IMG BI PROCEDURES Final Result * BI Mammogram Diagnostic Tomosynthesis Left (11/08/2024 11:02 AM EST) Anatomical Region Laterality Modality Breast Left Mammography 11/08/2024 11:0 2 AM EST Narrative 11/08/2024 1:04 PM EST ? [facility] ? [address] ?[place] [address] ? Mammography Report ? Signed with Addenda ? Patient: Jackson,Yeny V ?MR#: [id number] ?? [id number] ? : 1985 ?Acct:[id number] ? Age/Sex: 39 / F ?ADM Date: 11/08/24 ? Loc: HO.MAMMO ? Attending Dr: Mariusz Lassiter MD ? Ordering Physician: Mariusz Lassiter MD ?Results: 1Nega ?? tive ? Date of Service: 11/08/24 ?Follow Up: 1 Year From Orig ?? inal Mammogram ? Procedure(s): MM tomosynthesis diagnostic LT ?? Accession Number(s): [id number] ? cc: Mariusz Lassiter MD; Kimberli Patel MD ?ADDENDUM ? ADDENDUM #1 ? ADDENDUM: ?? 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 ?? Results are malignant and concordant. Recommend breast surgical ?? consultation for excision and further management. ? Ultrasound-guided core needle biopsy left axilla demonstrates ?? fibrovascular tissue no lymph node or breast tissue present for ?? evaluation. ?? These findings are benign but DISCORDANT. ?? Recommend excision of this left axillary abnormal lymph node. ? Electronically signed by: ??Dulce Richardson DO ??11/19/2024 01:42 PM EST ?? RP ? Addendum Dictated By: ?Dulce Richardson, DO ? Addendum Signed By: ? <Electronically signed by Dulce Richardson, DO in OV> ? 11/19/24 1342 ?? Addendum Cosigned By: ? DD/ /01/1102 ? TD/TT: 11/08/2401/01/1115 ? ADDENDUM #1 ? ADDENDUM: ?? 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 ?? Results are malignant and concordant. Recommend breast surgical ?? consultation for excision and further management. ? Ultrasound-guided core needle biopsy left axilla demonstrates ?? fibrovascular tissue no lymph node or breast tissue present for ?? evaluation. ?? These findings are benign but DISCORDANT. ?? Recommend excision of this left axillary abnormal lymph node. ? Electronically signed by: ??Dulce Richardson DO ??11/19/2024 01:42 PM EST ? ORIGINAL REPORT ? EXAMINATION: ?? ULTRASOUND GUIDED CORE BIOPSY BREAST, LEFT Breast ??AND LEFT AXILLA. ?? POST PROCEDURE DIGITAL MAMMOGRAM, LEFT ? CLINICAL INFORMATION: ?? Suspicious left breast mass and left axillary lymph node. ? COMPARISON: ?? Comparison is made with available prior examinations. ? FINDINGS: ?? Proper informed consent is obtained from the patient after discussion ?? of the procedure, potential risks and complications, and alternatives. ? Patient was given an opportunity for questions. ??The patient appeared ?? to understand. ??The patient consented to the procedure and signed the ?? consent form ?? . ?? Left Breast: ?? GUIDANCE: Ultrasound-guided; aseptic technique. ?? LESION: ??Solid irregular mass at 3-4:00 15 mm from nipple. ?? ANESTHESIA: 10 mL 1% lidocaine. ?? NEEDLE: 14-gauge. ?? CLIP: open coil ? Left Axilla: ?? GUIDANCE: Ultrasound-guided; aseptic technique. ?? LESION: ??Englarge left axillary lymph node. ?? ANESTHESIA: 10 mL 1% lidocaine. ?? NEEDLE: 14-gauge. ?? CLIP butterfly shaped metallic clip. ? POST PROCEDURE UNILATERAL DIGITAL MAMMOGRAM: ?? The post biopsy mammogram is performed in separate room using separate ?? digital mammography equipment from the biopsy procedure ?? Clip is in satisfactory positioning both the left breast and axilla. ? The patient tolerated the procedure well. No immediate complications. ?? Home instructions reviewed with the patient. Final pathology results ?? are pending. ? IMPRESSION: ?? 1. Status post ultrasound-guided core biopsy left breast and left ?? axilla. ?? 2. Pathology pending. ??An addendum report will be issued. ? Electronically signed by: ??Dulce Richardson DO ??11/08/2024 01:01 PM EST ?? RP Workstation: [employer] ? MM/MM tomosynthesis diagnostic LT ?? IMPRESSION: ?? 1. Status post ultrasound-guided core biopsy left breast and left ?? axilla. ?? 2. Pathology pending. ??An addendum report will be issued. ? Electronically signed by: ??Dulce Richardson DO ??11/08/2024 01:01 PM EST ?? RP Workstation: [employer] ? Dictated By: ?Dulce Richardson DO ? Signed By: ?<Electronically signed by Dulce Richardson, DO in OV> ? 11/19/24 1342 ? DD/ 1102 ? TD/TT: 11/08/24 1115 ? [employer] [address]: ? Procedure Note Don[place], Image - 12/02/2024 [facility] [address] [place] [address] Mammography Report Signed with Matilde Patient: Yeny Jackson VMR#: [id number] : 1985Acct:[id number] Age/Sex: 39 / FADM Date: 11/08/24 Loc: [facility] Attending Dr: Mariusz Lassiter MD Ordering Physician: Mariusz Lassiteresults: 1Nega tive Date of Service: 11/08/24Follow Up: 1 Year From Orig inal Mammogram Procedure(s): PATSY tomosynthesis diagnostic LT Accession Number(s): [id number] cc: Mariusz Lassiter MD; Kimberli Patel MD ADDENDUM ADDENDUM #1 ADDENDUM: Ultrasound-guided core needle biopsy 3:00 mass left breast: Invasive ductal carcinoma and ductal carcinoma in situ. Results are malignant and concordant. Recommend breast surgical consultation for excision and further management. Ultrasound-guided core needle biopsy left axilla demonstrates fibrovascular tissue no lymph node or breast tissue present for evaluation. These findings are benign but DISCORDANT. Recommend excision of this left axillary abnormal lymph node. Electronically signed by: Dulce Richardson DO 11/19/2024 01:42 PM EST RP Addendum Dictated By: Dulce Richardson DO Addendum Signed By: <Electronically signed by DO Davina in OV> 11/19/24 1342 Addendum Cosigned By: DD/ /01/1102 TD/TT: 11/08/2401/01/1115 ADDENDUM #1 ADDENDUM: Ultrasound-guided core needle biopsy 3:00 mass left breast: Invasive ductal carcinoma and ductal carcinoma in situ. Results are malignant and concordant. Recommend breast surgical consultation for excision and further management. Ultrasound-guided core needle biopsy left axilla demonstrates fibrovascular tissue no lymph node or breast tissue present for evaluation. These findings are benign but DISCORDANT. Recommend excision of this left axillary abnormal lymph node. Electronically signed by: Dulce Richardson DO 11/19/2024 01:42 PM EST RP ORIGINAL REPORT EXAMINATION: ULTRASOUND GUIDED CORE BIOPSY BREAST, LEFT Breast AND LEFT AXILLA. POST PROCEDURE DIGITAL MAMMOGRAM, LEFT CLINICAL INFORMATION: Suspicious left breast mass and left axillary lymph node. COMPARISON: Comparison is made with available prior examinations. FINDINGS: Proper informed consent is obtained from the patient after discussion of the procedure, potential risks and complications, and alternatives. Patient was given an opportunity for questions. The patient appeared to understand. The patient consented to the procedure and signed the consent form . Left Breast: GUIDANCE: Ultrasound-guided; aseptic technique. LESION: Solid irregular mass at 3-4:00 15 mm from nipple. ANESTHESIA: 10 mL 1% lidocaine. NEEDLE: 14-gauge. CLIP: open coil Left Axilla: GUIDANCE: Ultrasound-guided; aseptic technique. LESION: Englarge left axillary lymph node. ANESTHESIA: 10 mL 1% lidocaine. NEEDLE: 14-gauge. CLIP butterfly shaped metallic clip. POST PROCEDURE UNILATERAL DIGITAL MAMMOGRAM: The post biopsy mammogram is performed in separate room using separate digital mammography equipment from the biopsy procedure Clip is in satisfactory positioning both the left breast and axilla. The patient tolerated the procedure well. No immediate complications. Home instructions reviewed with the patient. Final pathology results are pending. IMPRESSION: 1. Status post ultrasound-guided core biopsy left breast and left axilla. 2. Pathology pending. An addendum report will be issued. Electronically signed by: Dulce Richardson DO 11/08/2024 01:01 PM EST RP MM/MM tomosynthesis diagnostic LT IMPRESSION: 1. Status post ultrasound-guided core biopsy left breast and left axilla. 2. Pathology pending. An addendum report will be issued. Electronically signed by: Dulce Richardson DO 11/08/2024 01:01 PM EST RP Dictated By: Dulce Richardson DO Signed By: <Electronically signed by Dulce Richardson DO in OV> 11/19/24 1342 DD/ 1102 TD/TT: 11/08/24 1115 [facility] [facility] [employer] [employer] [address]: [facility] External Provider IMG BI PROCEDURES Edited Result - Final * Hematoxylin and Eosin Stain (11/08/2024 10:34 AM EST) 11/08/2024 10:3 4 AM EST 11/08/2024 12:06 PM EST [facility] - 11/12/2024 10:24 AM EST ----- ------- Name: Yeny Jackson V ?Age/Sex: 39/F ? : 1985 Unit#: [id number] ?? Attend Dr: Mariusz Lassiter MD ?Re11/08/24 ?Status: DEP REF ? Location: HO.MAMMO ?Disch: ? ----- ------- SPEC : [id number] ? RECD: 11/08/24-1206 ? STATUS: ??SOUT ? REQ NUM: [id number] ? ARNAUD: 11/08/24-1034 ? SUBM DR: Dulce Richardson DO ? ENTERED: ??11/08/24-1210 ?SP TYPE: Surgical ? OTHR DR: Mariusz Lassiter MD ?Kimbelri Patel MD ORDERED: ??HE Stain/4, Gross Micro L4/2, ER, AL, IHC, Add. immunos, IHC ER/AL/Her2N/4, ?E-cadherin, Ki-67, p63, SMM, [id number] COMMENTS: A. ??As stated on the requisition time in formalin 1041 ?B. ??As stated on the requisition time in formalin 1055 ? Diagnosis ?? A. ??Breast, left, 3:00 mass, core biopsy: ?? -Invasive ductal carcinoma, MSBR grade 1, with cribriform features. ?? -Ductal carcinoma in situ, nuclear grade 2, cribriform and solid patterns. ? B. ??Soft tissue, left axilla, core biopsy: ?? -Fibrovascular tissue only; no lymph node or breast tissue present for evaluation. ? Breast Biopsy Data Synopsis ? Procedure: Core biopsy ?? Specimen laterality: ??Left ?? Histologic type: Invasive ductal carcinoma with cribriform features ?? Histologic grade (Jenise/MSBR histologic score): ?? 1 ? - Glandular/tubular differentiation: Score: ??2 ? - Nuclear pleomorphism: Score: ??2 ? - Mitotic rate: Score: ??1 ?? Tumor size: Largest linear diameter: ??10 mm ?? Ductal carcinoma in situ: Present ?? Lymphatic and/or vascular invasion: Not identified ?? Microcalcifications: Not identified ? Note: Some of the listed elements may change with subsequent review of the entire lesion. ?? See microscopic description for immunostains. ?Clinical History Left breast mass 3 o'clock, left axilla ? lymph node ?Microscopic Description Microscopic sections on part A show infiltration of irregular glands, small solid groups, cribriform groups, and cords composed of round to oval tumor cells with scant to moderate vesicular cytoplasm.? Nuclei are round to oval with moderate irregularity and with nucleoli. In situ proliferations of similar cells are identified. ??Immunostains for p63 and smooth muscle myosin are positive for myoepithelial cells around in situ carcinoma, and negative in invasive carcinoma. ??E-cadherin is diffusely positive in the tumor. ??Controls stain appropriately. ? CONTINUED ON NEXT PAGE ----- ------- Name: Yeny Jackson V ?Age/Sex: 39/F ? : 1985 Unit#: [id number] ?? Attend Dr: Mariusz Lassiter MD ?Re11/08/24 ?Status: DEP REF ? Location: HO.MAMMO ?Disch: ? ----- ------- SPEC : [id number] ? RECD: 11/08/24-1205 ? STATUS: ??SOUT ? REQ NUM: [id number] ? ARNAUD: 11/08/24-1034 ? SUBM DR: Dulce Richardson DO ? ENTERED: ??11/08/24-1210 ?SP TYPE: Surgical ? OTHR DR: Mariusz Lassiter MD ?Kimberli Patel MD ORDERED: ??HE Stain/4, Gross Micro L4/2, ER, AL, IHC, Add. immunos, IHC ER/AL/Her2N/4, ?E-cadherin, Ki-67, p63, SMM, [id number] COMMENTS: A. ??As stated on the requisition time in formalin 1041 ?B. ??As stated on the requisition time in formalin 1055 ?Microscopic Description ? (Continued) Immunohistochemical stains on invasive tumor as follows: -Estrogen Receptor: POSITIVE (% Positive cells: 95, average intensity: Strong) -Progesterone Receptor: POSITIVE (% Positive cells: 90, average intensity: Moderate) -HER2: NEGATIVE (0) (% Positive cells: 0) -Ki67: LOW (% Positive cells: ??< 20, variable 10-20%) -Controls (external and internal): Appropriate ? Material Received ?? A. Left breast mass 3 o'clock ? Ca ?? B. Left axilla ? lymph node ? Gross Description Received in 2 parts. A. Received in formalin labeled ?left breast mass 3:00 o'clock ? CA.? are 6 cylindrical portions of yellow-white and pink white fibrofatty breast tissue ranging from 0.4-1.3 cm in length all with a diameter of 0.2 cm which are entirely submitted for microscopic examination, 6 pieces in cassette A. B. ??Received in formalin labeled ?left axilla ? lymph node? are minute fragments of pink white and yellow-white soft tissue forming an aggregate measuring 0.6 x 0.5 x 0.1 cm which is wrapped in lens paper and entirely submitted for microscopic examination, multiple pieces in cassette B. [place] Interpretive Information All tests are performed on formalin-fixed, paraffin-embedded tissue using automated immunostain methods: Estrogen receptor: ??Clone SP1; Dako Envision+ Dual Link System-HRP Progesterone receptor: ??Clone [id number]; [employer]ana Mach 4 detection system HER2: ??Hercep test; polymer type detection system Positive and negative controls are performed and evaluated for each assay, and all testing is performed in accordance with the most recent ASCO/CAP guidelines. Results reflect status of invasive carcinoma component, unless otherwise specified (as in DCIS). Fixation times ? CONTINUED ON NEXT PAGE ----- ------- Name: Yeny Jackson V ?Age/Sex: 39/F ? : 1985 Unit#: [id number] ?? Attend Dr: Mariusz Lassiter MD ?Re11/08/24 ?Status: DEP REF ? Location: HO.MAMMO ?Disch: ? ----- ------- SPEC : [id number] ? RECD: 11/08/24120 ? STATUS: ??SOUT ? REQ NUM: [id number] ? ARNAUD: 11/08/24-4 ? SUBM DR: Dulce Richardson DO ? ENTERED: ??11/08/240 ?SP TYPE: Surgical ? OTHR DR: Mariusz Lassiter MD ?Kimberli Patel MD ORDERED: ??HE Stain/4, Gross Micro L4/2, ER, AL, IHC, Add. immunos, IHC ER/AL/Her2N/4, ?E-cadherin, Ki-67, p63, SMM, [id number] COMMENTS: A. ??As stated on the requisition time in formalin 1041 ?B. ??As stated on the requisition time in formalin 1055 ? Gross Description ?(Continued) range between 6 hours and 72 hours unless otherwise specified. ?ER and PgR immunostains are scored as Positive (> or = 10% of tumor cell nuclei), Low positive (1-10% of tumor cell nuclei) or Negative (< 1% of tumor cell nuclei), with the percentage of immunopositive nuclei and the nuclear staining intensity given in parentheses. The Negative category is further delineated by the presence or absence of internal positive control tissue. ?? Ki-67 immunostains are scored as High = or > 20% positive nuclei and Low < 20% positive nuclei. ?Regarding HER2 immunoassays, the Positive category correlates with intense, complete membranous staining of more than 10% of the carcinomatous cells, and is designated as 3+. The Negative category (0) includes negative and incomplete faint/barely perceptible staining in 10% tumor cells or less. ??The Low category (1+) includes incomplete faint/barely perceptible staining in > 10% of tumor cells. The Equivocal (2+) category reflects weak, moderate incomplete, or nonuniform circumferential staining, in >10% tumor cells, or strong circumferential staining in less than 10% of the tumor. The Equivocal category includes a minor subset of patients with HER2 gene amplification, and confirmatory testing for gene amplification by FISH methodology will be reflexively performed on all Equivocal (2+) cases. NOTE: Some or all of the tests utilized in this case are laboratory developed tests (LDT), and may use class I analyte specific reagents (ASR). These tests were developed for clinical purposes and their performance characteristics determined by this lab on tissue fixed in 10% neutral buffered formalin. Other fixatives specified (CytoLyt or decalcification) have not been validated, and results should be interpreted with caution in the diagnostic context of the case. This lab is certified under the Clinical Laboratory Improvement Amendments of 1988 (CLIA) as qualified to perform high complexity clinical laboratory testing. References: [facility] BAUTISTA, Lianne ORO, et al. ??Estrogen and Progesterone Receptor Testing in Breast Cancer: [place] [employer] [place] [employer] Guideline Update. Arch of Pathol Lab Med. 2020; 144(5): 545-563. Nolan ROCKWELL, Lianne SIMON, Lety BAUTISTA, et al. Her2 testing in breast cancer: [place] [employer] [place] [employer] clinical practice guideline focused update. Arch Pathol Lab Med. 2018; 142(11): 3079-8960. Caryn N, Elkin P, et al. Adjuvant abemaciclib combined with endocrine therapy for high- risk early breast cancer: updated efficacy and Ki-67 analysis from the monarchE study. Mindy ? CONTINUED ON NEXT PAGE ----- ------- Name: Jackson,Yeny V ?Age/Sex: 39/F ? : 1985 Unit#: [id number] ?? Attend Dr: Mariusz Lassiter MD ?Re11/08/24 ?Status: DEP REF ? Location: HO.MAMMO ?Disch: ? ----- ------- SPEC : [id number] ? RECD: 11/08/24-1205 ? STATUS: ??SOUT ? REQ NUM: [id number] ? ARNAUD: 11/08/24-1034 ? SUBM DR: Dulce Richardson DO ? ENTERED: ??11/08/24-0 ?SP TYPE: Surgical ? OTHR DR: Mariusz Lassiter MD ?Kimberli Patel MD ORDERED: ??HE Stain/4, Gross Micro L4/2, ER, AL, IHC, Add. immunos, IHC ER/AL/Her2N/4, ?E-cadherin, Ki-67, p63, SMM, ELT9VAE COMMENTS: A. ??As stated on the requisition time in formalin 1041 ?B. ??As stated on the requisition time in formalin 1055 ? Gross Description ?(Continued) Oncol. 2020 Dec;32(12):9180-3786. Lianne ME, Chaitanya DF, et al. ASCO/CAP Guideline Recommendations for Immunohistochemical Testing of Estrogen and Progesterone Receptors in Breast Cancer. J Clin Oncol, 28 (16), 2010: 3523-6520. This case was reviewed intradepartmentally. ??Results given to Dr.'s Richardson and Sravani by Dr. Irving on 11/12/2024 at 10:22 am. Special studies ordered and performed: ??Immunostains for ER, AL, HER2, Ki 67, E-cadherin, p63 and smooth muscle myosin on A1. Copies To: ?? Mariusz Lassiter MD ?? [facility] [place] [facility] ?? Hospital [address] ?? [place] [address] ?? [phone] ?? Dulce Richardson DO ?? [address] ?? [place] [address] ?? [phone] ?? Kimberli Patel MD ?? [address] ?? [place] [address] ?? [phone] ----- ------- Signed (signature on file) Cornelia Irving 11/12/24 1024 ? ----- ------- ? END OF REPORT ? us Generic External Data Provider LAB BLOOD ORDERAB LES Final Result [facility] [address] [place] [address] [phone] * BI US Breast Limited Right (11/08/2024 10:00 AM EST) Anatomical Region Laterality Modality Breast Right Ultrasound 11/08/2024 10:0 0 AM EST Narrative 11/08/2024 12:15 PM EST ? [facility] ? [address] ?[place] [address] ? Ultrasound Report ? Signed ? Patient: Jackson,Yeny V ?MR#: [id number] ?? [id number] ? : 1985 ?Acct:[id number] ? Age/Sex: 39 / F ?ADM Date: 11/08/ ? Loc: HO.MAMMO ? Attending Dr: Mariusz Lassiter MD ? Ordering Physician: Mariusz Lassiter MD ?? Date of Service: 11/08/24 ?? Procedure(s): US breast RT limited mamm only ?? Accession Number(s): [id number] ? cc: Mariusz Lassiter MD; Kimberli Patel MD ? EXAMINATION: ?? US DIAGNOSTIC ULTRASOUND BREAST, RIGHT ? CLINICAL INFORMATION: ? Suspicious masses in the left breast ultrasound and left axilla here ?? today for core needle biopsy of both areas. ?? Recent breast MRI demonstrated probably benign enhancing foci in the ?? right breast upper outer quadrant and questionable prominent right ?? axillary lymph nodes. Ultrasound to evaluate area seen on MRI.. ? COMPARISON: ?? Comparison is made with relevant prior imaging. ? TECHNIQUE: ?? Ultrasound of the breast is performed with real-time melendrez scale imaging ?? and color Doppler. ? FINDINGS: ?? Targeted color Doppler ultrasound scanning in the upper outer quadrant ?? area of enhancing foci seen on recent MRI demonstrates normal ?? fibronodular breast tissue. ?? There is an incidental simple cyst at 10:00 2 cm from nipple measuring ?? 7 x 8 x 6 mm. This is benign. ?? There is no sonographic abnormality. ? Targeted color Doppler ultrasound in the axilla demonstrates normal ?? axillary tissue. There is no sonographic abnormality. ? Results are discussed with the patient at time of visit. ? US/US breast RT limited mamm only ?? IMPRESSION: ?? Right: ?? 1. No sonographic abnormality to account for the enhancing foci in the ?? upper outer quadrant of the right breast on recent MRI. Recommend 6 ?? month follow-up MRI for further evaluation of stability. ? 2. Simple cyst on ultrasound. Benign. ? 3. Normal axillary tissue without evidence of abnormal lymph node. ?? Negative. ? ASSESSMENT: ? BI-RADS 2: Benign ? RECOMMENDATION: ?? Recommend biopsy of suspicious left axillary lymph node and left breast ?? mass at this time. The biopsy will be performed today. ? Recommend 6 month follow-up MRI for further evaluation of stability ?? probably benign enhancing foci in the right breast on MRI. ? This patient's information was entered into a reminder system with a ?? target due date for their next mammogram. ? Electronically signed by: ??Dulce Richardson DO ??11/08/2024 12:12 PM EST ?? RP ? Dictated By: ?Dulce Richardson DO ? Signed By: ?<Electronically signed by Dulce Richardson, DO in OV> ? 11/08/242 ? DD/ 1000 ? TD/TT: 11/08/24 1115 ? [employer]: ? Procedure Note Donotuseinterpreter, Image - 11/20/2024 [facility] [address] [place] [address] Ultrasound Report Signed Patient: Yeny Jackson VMR#: [id number] : 1985Acct:[id number] Age/Sex: 39 / FADM Date: 11/08/24 Loc: HO.MAMMO Attending Dr: Mariusz Lassiter MD Ordering Physician: Mariusz Lassiter MD Date of Service: 11/08/24 Procedure(s): US breast RT limited mamm only Accession Number(s): [id number] cc: Mariusz Lassiter MD; Kimberli Patel MD EXAMINATION: US DIAGNOSTIC ULTRASOUND BREAST, RIGHT CLINICAL INFORMATION: Suspicious masses in the left breast ultrasound and left axilla here today for core needle biopsy of both areas. Recent breast MRI demonstrated probably benign enhancing foci in the right breast upper outer quadrant and questionable prominent right axillary lymph nodes. Ultrasound to evaluate area seen on MRI.. COMPARISON: Comparison is made with relevant prior imaging. TECHNIQUE: Ultrasound of the breast is performed with real-time melendrez scale imaging and color Doppler. FINDINGS: Targeted color Doppler ultrasound scanning in the upper outer quadrant area of enhancing foci seen on recent MRI demonstrates normal fibronodular breast tissue. There is an incidental simple cyst at 10:00 2 cm from nipple measuring 7 x 8 x 6 mm. This is benign. There is no sonographic abnormality. Targeted color Doppler ultrasound in the axilla demonstrates normal axillary tissue. There is no sonographic abnormality. Results are discussed with the patient at time of visit. US/US breast RT limited mamm only IMPRESSION: Right: 1. No sonographic abnormality to account for the enhancing foci in the upper outer quadrant of the right breast on recent MRI. Recommend 6 month follow-up MRI for further evaluation of stability. 2. Simple cyst on ultrasound. Benign. 3. Normal axillary tissue without evidence of abnormal lymph node. Negative. ASSESSMENT: BI-RADS 2: Benign RECOMMENDATION: Recommend biopsy of suspicious left axillary lymph node and left breast mass at this time. The biopsy will be performed today. Recommend 6 month follow-up MRI for further evaluation of stability probably benign enhancing foci in the right breast on MRI. This patient's information was entered into a reminder system with a target due date for their next mammogram. Electronically signed by: Dulce Richardson DO 11/08/2024 12:12 PM EST RP Dictated By: Dulce Richardson DO Signed By: <Electronically signed by Dulce Richardson DO in OV> 11/08/24 1212 DD/ 1000 TD/TT: 11/08/24 1115 [address] [employer] [address]: [facility] External Provider IMG US PROCEDURES Edited Result - Final * US BREAST NDL CORE BIO EA ADD (11/08/2024 10:00 AM EST) Anatomical Region Laterality Modality Abdomen Ultrasound 11/08/2024 10:0 0 AM EST Narrative 11/08/2024 1:04 PM EST ? [facility] ? [address] ?[place] [address] ? Ultrasound Report ? Signed with Addenda ? Patient: Jackson,Yeny V ?MR#: [id number] ?? [id number] ? : 1985 ?Acct:[id number] ? Age/Sex: 39 / F ?ADM Date: 11/08/24 ? Loc: HO.MAMMO ? Attending Dr: Mariusz Lassiter MD ? Ordering Physician: Mariusz Lassiter MD ?? Date of Service: 11/08/24 ?? Procedure(s): US breast ndl core bio ea add ?? Accession Number(s): [id number] ? cc: Mariusz Lassiter MD; Kimberli Patel MD ?ADDENDUM ? ADDENDUM #1 ? ADDENDUM: ?? 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 ?? Results are malignant and concordant. Recommend breast surgical ?? consultation for excision and further management. ? Ultrasound-guided core needle biopsy left axilla demonstrates ?? fibrovascular tissue no lymph node or breast tissue present for ?? evaluation. ?? These findings are benign but DISCORDANT. ?? Recommend excision of this left axillary abnormal lymph node. ? Electronically signed by: ??Dulce Richardson DO ??11/19/2024 01:42 PM EST ?? RP ? Addendum Dictated By: ?Dulce Richardson, DO ? Addendum Signed By: ? <Electronically signed by Dulce Richardson, DO in OV> ? 11/19/24 1342 ?? Addendum Cosigned By: ? DD/ /01/1000 ? TD/TT: 11/08/2401/01/1115 ? ADDENDUM #1 ? ADDENDUM: ?? 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 ?? Results are malignant and concordant. Recommend breast surgical ?? consultation for excision and further management. ? Ultrasound-guided core needle biopsy left axilla demonstrates ?? fibrovascular tissue no lymph node or breast tissue present for ?? evaluation. ?? These findings are benign but DISCORDANT. ?? Recommend excision of this left axillary abnormal lymph node. ? Electronically signed by: ??Dulce Richardson DO ??11/19/2024 01:42 PM EST ? ORIGINAL REPORT ? EXAMINATION: ?? ULTRASOUND GUIDED CORE BIOPSY BREAST, LEFT Breast ??AND LEFT AXILLA. ?? POST PROCEDURE DIGITAL MAMMOGRAM, LEFT ? CLINICAL INFORMATION: ?? Suspicious left breast mass and left axillary lymph node. ? COMPARISON: ?? Comparison is made with available prior examinations. ? FINDINGS: ?? Proper informed consent is obtained from the patient after discussion ?? of the procedure, potential risks and complications, and alternatives. ? Patient was given an opportunity for questions. ??The patient appeared ?? to understand. ??The patient consented to the procedure and signed the ?? consent form ?? . ?? Left Breast: ?? GUIDANCE: Ultrasound-guided; aseptic technique. ?? LESION: ??Solid irregular mass at 3-4:00 15 mm from nipple. ?? ANESTHESIA: 10 mL 1% lidocaine. ?? NEEDLE: 14-gauge. ?? CLIP: open coil ? Left Axilla: ?? GUIDANCE: Ultrasound-guided; aseptic technique. ?? LESION: ??Englarge left axillary lymph node. ?? ANESTHESIA: 10 mL 1% lidocaine. ?? NEEDLE: 14-gauge. ?? CLIP butterfly shaped metallic clip. ? POST PROCEDURE UNILATERAL DIGITAL MAMMOGRAM: ?? The post biopsy mammogram is performed in separate room using separate ?? digital mammography equipment from the biopsy procedure ?? Clip is in satisfactory positioning both the left breast and axilla. ? The patient tolerated the procedure well. No immediate complications. ?? Home instructions reviewed with the patient. Final pathology results ?? are pending. ? IMPRESSION: ?? 1. Status post ultrasound-guided core biopsy left breast and left ?? axilla. ?? 2. Pathology pending. ??An addendum report will be issued. ? Electronically signed by: ??Dulce Richardson DO ??11/08/2024 01:01 PM EST ?? RP Workstation: [employer] ? US/ breast ndl core bio ea add ?? IMPRESSION: ?? 1. Status post ultrasound-guided core biopsy left breast and left ?? axilla. ?? 2. Pathology pending. ??An addendum report will be issued. ? Electronically signed by: ??Dulce Richardson DO ??11/08/2024 01:01 PM EST ?? RP ? Dictated By: ?Dulce Richardson DO ? Signed By: ?<Electronically signed by Dulce Richardson, DO in OV> ? 11/19/24 1342 ? DD/ 1000 ? TD/TT: 11/08/24 1115 ? [employer] [address]: ? Procedure Note Socorroter, Image - 12/02/2024 [facility] [address] [place] [address] Ultrasound Report Signed with Matilde Patient: Yeny Jackson VMR#: [id number] : 1985Acct:[id number] Age/Sex: 39 / FADM Date: 11/08/24 Loc: [facility] Attending Dr: Mariusz Lassiter MD Ordering Physician: Mariusz Lassiter MD Date of Service: 11/08/24 Procedure(s): breast ndl core bio ea add Accession Number(s): [id number] cc: Mariusz Lassiter MD; Kimberli Patel MD ADDENDUM ADDENDUM #1 ADDENDUM: Ultrasound-guided core needle biopsy 3:00 mass left breast: Invasive ductal carcinoma and ductal carcinoma in situ. Results are malignant and concordant. Recommend breast surgical consultation for excision and further management. Ultrasound-guided core needle biopsy left axilla demonstrates fibrovascular tissue no lymph node or breast tissue present for evaluation. These findings are benign but DISCORDANT. Recommend excision of this left axillary abnormal lymph node. Electronically signed by: Dulce Richardson DO 11/19/2024 01:42 PM EST RP Addendum Dictated By: Dulce Richardson DO Addendum Signed By: <Electronically signed by DO Davina in OV> 11/19/24 1342 Addendum Cosigned By: DD/ /01/1000 TD/TT: 11/08/2401/01/1115 ADDENDUM #1 ADDENDUM: Ultrasound-guided core needle biopsy 3:00 mass left breast: Invasive ductal carcinoma and ductal carcinoma in situ. Results are malignant and concordant. Recommend breast surgical consultation for excision and further management. Ultrasound-guided core needle biopsy left axilla demonstrates fibrovascular tissue no lymph node or breast tissue present for evaluation. These findings are benign but DISCORDANT. Recommend excision of this left axillary abnormal lymph node. Electronically signed by: Dulce Richardson DO 11/19/2024 01:42 PM EST RP ORIGINAL REPORT EXAMINATION: ULTRASOUND GUIDED CORE BIOPSY BREAST, LEFT Breast AND LEFT AXILLA. POST PROCEDURE DIGITAL MAMMOGRAM, LEFT CLINICAL INFORMATION: Suspicious left breast mass and left axillary lymph node. COMPARISON: Comparison is made with available prior examinations. FINDINGS: Proper informed consent is obtained from the patient after discussion of the procedure, potential risks and complications, and alternatives. Patient was given an opportunity for questions. The patient appeared to understand. The patient consented to the procedure and signed the consent form . Left Breast: GUIDANCE: Ultrasound-guided; aseptic technique. LESION: Solid irregular mass at 3-4:00 15 mm from nipple. ANESTHESIA: 10 mL 1% lidocaine. NEEDLE: 14-gauge. CLIP: open coil Left Axilla: GUIDANCE: Ultrasound-guided; aseptic technique. LESION: Englarge left axillary lymph node. ANESTHESIA: 10 mL 1% lidocaine. NEEDLE: 14-gauge. CLIP butterfly shaped metallic clip. POST PROCEDURE UNILATERAL DIGITAL MAMMOGRAM: The post biopsy mammogram is performed in separate room using separate digital mammography equipment from the biopsy procedure Clip is in satisfactory positioning both the left breast and axilla. The patient tolerated the procedure well. No immediate complications. Home instructions reviewed with the patient. Final pathology results are pending. IMPRESSION: 1. Status post ultrasound-guided core biopsy left breast and left axilla. 2. Pathology pending. An addendum report will be issued. Electronically signed by: Dulce Richardson DO 11/08/2024 01:01 PM EST RP US/US breast ndl core bio ea add IMPRESSION: 1. Status post ultrasound-guided core biopsy left breast and left axilla. 2. Pathology pending. An addendum report will be issued. Electronically signed by: Dulce Richardson DO 11/08/2024 01:01 PM EST RP Dictated By: Dulce Richardson DO Signed By: <Electronically signed by Dulce Richardson DO in OV> 11/19/24 1342 DD/ 1000 TD/TT: 11/08/24 1115 [address] [employer] [address]: us [facility] External Provider IMG US PROCEDURES Edited Result - Final * BI MR Guided Breast Biopsy Left (11/08/2024 10:00 AM EST) Anatomical Region Laterality Modality Breast Left Magnetic Resonan ce 11/08/2024 10:0 0 AM EST Narrative 11/08/2024 1:04 PM EST ? [facility] ? [address] ?[place] [address] ? Ultrasound Report ? Signed with Addenda ? Patient: Jackson,Yeny V ?MR#: [id number] ?? [id number] ? : 1985 ?Acct:[id number] ? Age/Sex: 39 / F ?ADM Date: 11/08/ ? Loc: HO.MAMMO ? Attending Dr: Mariusz Lassiter MD ? Ordering Physician: Mariusz Lassiter MD ?? Date of Service: 11/08/24 ?? Procedure(s): US breast ndl core biopsy LT ?? Accession Number(s): [id number] ? cc: Mariusz Lassiter MD; Kimberli Patel MD ?ADDENDUM ? ADDENDUM #1 ? ADDENDUM: ?? 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 ?? Results are malignant and concordant. Recommend breast surgical ?? consultation for excision and further management. ? Ultrasound-guided core needle biopsy left axilla demonstrates ?? fibrovascular tissue no lymph node or breast tissue present for ?? evaluation. ?? These findings are benign but DISCORDANT. ?? Recommend excision of this left axillary abnormal lymph node. ? Electronically signed by: ??Dulce Richardson DO ??11/19/2024 01:42 PM EST ? Addendum Dictated By: ?Dulce Richardson, DO ? Addendum Signed By: ? <Electronically signed by Dulce Richardson, DO in OV> ? 11/19/24 1342 ?? Addendum Cosigned By: ? DD/ /01/1000 ? TD/TT: 11/08/2401/01/1115 ? ADDENDUM #1 ? ADDENDUM: ?? 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 ?? Results are malignant and concordant. Recommend breast surgical ?? consultation for excision and further management. ? Ultrasound-guided core needle biopsy left axilla demonstrates ?? fibrovascular tissue no lymph node or breast tissue present for ?? evaluation. ?? These findings are benign but DISCORDANT. ?? Recommend excision of this left axillary abnormal lymph node. ? Electronically signed by: ??Dulce Rcihardson DO ??11/19/2024 01:42 PM EST ? ORIGINAL REPORT ? EXAMINATION: ?? ULTRASOUND GUIDED CORE BIOPSY BREAST, LEFT Breast ??AND LEFT AXILLA. ?? POST PROCEDURE DIGITAL MAMMOGRAM, LEFT ? CLINICAL INFORMATION: ?? Suspicious left breast mass and left axillary lymph node. ? COMPARISON: ?? Comparison is made with available prior examinations. ? FINDINGS: ?? Proper informed consent is obtained from the patient after discussion ?? of the procedure, potential risks and complications, and alternatives. ? Patient was given an opportunity for questions. ??The patient appeared ?? to understand. ??The patient consented to the procedure and signed the ?? consent form ?? . ?? Left Breast: ?? GUIDANCE: Ultrasound-guided; aseptic technique. ?? LESION: ??Solid irregular mass at 3-4:00 15 mm from nipple. ?? ANESTHESIA: 10 mL 1% lidocaine. ?? NEEDLE: 14-gauge. ?? CLIP: open coil ? Left Axilla: ?? GUIDANCE: Ultrasound-guided; aseptic technique. ?? LESION: ??Englarge left axillary lymph node. ?? ANESTHESIA: 10 mL 1% lidocaine. ?? NEEDLE: 14-gauge. ?? CLIP butterfly shaped metallic clip. ? POST PROCEDURE UNILATERAL DIGITAL MAMMOGRAM: ?? The post biopsy mammogram is performed in separate room using separate ?? digital mammography equipment from the biopsy procedure ?? Clip is in satisfactory positioning both the left breast and axilla. ? The patient tolerated the procedure well. No immediate complications. ?? Home instructions reviewed with the patient. Final pathology results ?? are pending. ? IMPRESSION: ?? 1. Status post ultrasound-guided core biopsy left breast and left ?? axilla. ?? 2. Pathology pending. ??An addendum report will be issued. ? Electronically signed by: ??Dulce Richardson DO ??11/08/2024 01:01 PM EST ? US/US breast ndl core biopsy LT ?? IMPRESSION: ?? 1. Status post ultrasound-guided core biopsy left breast and left ?? axilla. ?? 2. Pathology pending. ??An addendum report will be issued. ? Electronically signed by: ??Dulce Richardson DO ??11/08/2024 01:01 PM EST ?? RP ? Dictated By: ?Dylan,Dulce DO ? Signed By: ?<Electronically signed by Dulcefelice Richardson, DO in OV> ? 11/19/24 1342 ? DD/ 1000 ? TD/TT: 11/08/24 1115 ? [employer] [address] [employer] [address]: ? Procedure Note Bell, Image - 12/02/2024 [facility] [address] [place], [place] [address] Ultrasound Report Signed with Addmack Patient: Yeny Jackson R#: [id number] : 1985Acct:[id number] Age/Sex: 39 / FADM Date: 11/08/24 Loc: HO.MAMMO Attending Dr: Mariusz Lassiter MD Ordering Physician: Mariusz Lassiter MD Date of Service: 11/08/24 Procedure(s): US breast ndl core biopsy LT Accession Number(s): [id number] cc: Mariusz Lassiter MD; Kimberli Patel MD ADDENDUM ADDENDUM #1 ADDENDUM: Ultrasound-guided core needle biopsy 3:00 mass left breast: Invasive ductal carcinoma and ductal carcinoma in situ. Results are malignant and concordant. Recommend breast surgical consultation for excision and further management. Ultrasound-guided core needle biopsy left axilla demonstrates fibrovascular tissue no lymph node or breast tissue present for evaluation. These findings are benign but DISCORDANT. Recommend excision of this left axillary abnormal lymph node. Electronically signed by: Dulce Richardson DO 11/19/2024 01:42 PM EST RP Addendum Dictated By: Dulce Richardson DO Addendum Signed By: <Electronically signed by DO Davina in OV> 11/19/24 1342 Addendum Cosigned By: DD/ /01/1000 TD/TT: 11/08/2401/01/1115 ADDENDUM #1 ADDENDUM: Ultrasound-guided core needle biopsy 3:00 mass left breast: Invasive ductal carcinoma and ductal carcinoma in situ. Results are malignant and concordant. Recommend breast surgical consultation for excision and further management. Ultrasound-guided core needle biopsy left axilla demonstrates fibrovascular tissue no lymph node or breast tissue present for evaluation. These findings are benign but DISCORDANT. Recommend excision of this left axillary abnormal lymph node. Electronically signed by: Dulce Richardson DO 11/19/2024 01:42 PM EST RP ORIGINAL REPORT EXAMINATION: ULTRASOUND GUIDED CORE BIOPSY BREAST, LEFT Breast AND LEFT AXILLA. POST PROCEDURE DIGITAL MAMMOGRAM, LEFT CLINICAL INFORMATION: Suspicious left breast mass and left axillary lymph node. COMPARISON: Comparison is made with available prior examinations. FINDINGS: Proper informed consent is obtained from the patient after discussion of the procedure, potential risks and complications, and alternatives. Patient was given an opportunity for questions. The patient appeared to understand. The patient consented to the procedure and signed the consent form . Left Breast: GUIDANCE: Ultrasound-guided; aseptic technique. LESION: Solid irregular mass at 3-4:00 15 mm from nipple. ANESTHESIA: 10 mL 1% lidocaine. NEEDLE: 14-gauge. CLIP: open coil Left Axilla: GUIDANCE: Ultrasound-guided; aseptic technique. LESION: Englarge left axillary lymph node. ANESTHESIA: 10 mL 1% lidocaine. NEEDLE: 14-gauge. CLIP butterfly shaped metallic clip. POST PROCEDURE UNILATERAL DIGITAL MAMMOGRAM: The post biopsy mammogram is performed in separate room using separate digital mammography equipment from the biopsy procedure Clip is in satisfactory positioning both the left breast and axilla. The patient tolerated the procedure well. No immediate complications. Home instructions reviewed with the patient. Final pathology results are pending. IMPRESSION: 1. Status post ultrasound-guided core biopsy left breast and left axilla. 2. Pathology pending. An addendum report will be issued. Electronically signed by: Dulce Richardson DO 11/08/2024 01:01 PM EST RP US/US breast ndl core biopsy LT IMPRESSION: 1. Status post ultrasound-guided core biopsy left breast and left axilla. 2. Pathology pending. An addendum report will be issued. Electronically signed by: Dulce Richardson DO 11/08/2024 01:01 PM EST RP Dictated By: Dulce Richardson DO Signed By: <Electronically signed by Dulce Richardson DO in OV> 11/19/24 1342 DD/ 1000 TD/TT: 11/08/24 [address]: [facility] External Provider IMG MRI PROCEDURES Edited Result - Final documented in this encounter Visit Diagnoses Not on filedocumented in this encounter Additional Health Concerns Assessment Noted Time PHQ-9 Depression Total Score: 0 01/04/20 23 4:04 PM EST documented as of this encounter Care Teams It Senior Analyst Relationship Specialty Start Date End Date Kimberli Patel MD [address] [place] [address] PCP - General Family Medicine 11/24/21 documented as of this encounter
--- OUTSIDE RECORDS SUMMARY | 2024-12-03 06:45 | XMS_ITS | Encounter Summary ---
Author Organization [facility] Address [address] [facility] 7 [place] [address] Care Team Providers Care Sole Conforming Machine Operator Name Role Phone Kimberli Patel MD Primary Care Provider [phone] Reason for Visit * Reason Onset Date Comments MRI BREAST ORDER 11/22/2024 Encounter Details Date Type Department Care Team ([facility] Contact Info) Description 11/22/2024 Telephone [employer] Information Management [address] [place] [address] Kimberli Patel MD [address] [place] [id number] MRI BREAST ORDER Social History Tobacco Use Types Packs/Day Years [...] AM EDT documented as of this encounter Miscellaneous Notes * Telephone Encounter - Kimberli Patel MD - 11/22/2024 2:11 PM EST Ok so he is ordering the followup image in 6 months? * Telephone Encounter - Charla Patel - 11/22/2024 1:41 PM EST Incoming fax from [facility] stating exam done 11/02/24 and pts following up [place] [address] LOWRY. documented in this encounter Plan of Treatment Not on file documented as of this encounter Visit Diagnoses Not on filedocumented in this encounter Additional Health Concerns Assessment Noted Time PHQ-9 Depression Total Score: 0 01/04/20 23 4:04 PM EST documented as of this encounter Care Teams Sole Conforming Machine Operator Relationship Specialty Start Date End Date Kimberli Patel MD [address] [place] [address] PCP - General Family Medicine 11/24/21 documented as of this encounter
--- OUTSIDE RECORDS SUMMARY | 2024-12-03 06:45 | XMS_ITS | Encounter Summary ---
Author Organization [employer] Address [address] [facility] [address] [place] [address] Care Team Providers Care Post Office Clerk Name Role Phone Kimberli Patel MD Primary Care Provider [phone] Reason for Referral * Imaging (Routine) - Closed Specialty Diagnoses / Procedures Referred By Contac t Referred To Contact Radiology Diagnoses Mass of right breast, unspecified quadrant Procedures BI MR Breast w/ and w/o Contrast Right Kimberli Patel MD [address] [place] [address] Phone: tel: fax: [facility] [address] [place] [address] Phone: tel: fax: Referral ID Status Reason Start Date Expiration Date Visits Re quested Visits Authorized [id number] Closed 11/21/2024 11/21/2025 1 1 Encounter Details Date Type Department Care Team (Late st Contact Info) Description 11/21/2024 Telephone [facility] MEDICINE [address] [place] [address] Kimberli Patel MD [address] [place], [place] [id number] Social History Tobacco Use Types Packs/Day Years [...] encounter Miscellaneous Notes * Telephone Encounter - Serenity Hernández RN - 11/23/2024 11:05 AM EST Notified patient of results. Patient is aware that MRI will need to be done in 6 months. Advised patient to call office if she notices any changes in breast, or skin around breast. Patient stated understanding and agrees with plan. * Telephone Encounter - Kimberli Patel MD - 11/21/2024 9:29 AM EST Karolyn Alex Team! Can you please call Yeny Jackson and inform about results? US results: The MRI showed some areas in your right breast that looked a bit different, but the ultrasound didn't find anything to explain them. To keep an eye on these areas, the patient needs another MRI in 6 months to see if they've changed. Patient needs repeat MRI of R breast in 6 months, imaging order by surgeon. Order placed for MRI Thanks! Kimberli documented in this encounter Plan of Treatment Scheduled Orders Name Type Priority Associated Diagnoses Orde r Schedule BI MR Breast w/ and w/o Contrast Right Imaging Routine Mass of right breast, unspecified quadrant Expected: 05/21/2025, Expires: 11/21/2025 documented as of this encounter Visit Diagnoses Diagnosis Mass of right breast, unspecified quadrant- Primary documented in this encounter Additional Health Concerns Assessment Noted Time PHQ-9 Depression Total Score: 0 01/04/20 23 4:04 PM EST documented as of this encounter Care Teams Post Office Clerk Relationship Specialty Start Date End Date Kimberli Patel MD [address] [place] [address] PCP - General Family Medicine 11/24/21 documented as of this encounter
--- OUTSIDE RECORDS SUMMARY | 2024-12-03 06:45 | XMS_ITS | Clinical Summary ---
Author Organization [employer] Address [address] [facility] [address] [place] [address] Care Team Providers Care Technology Advisor Name Role Phone Kimberli Patel MD Primary Care Provider [phone] Allergies Active Allergy Reactions Criticality Noted Date Comments Pollen Extract 03/04/2023 Medications cholecalciferol (Vitamin D-3) 50 MCG (1999) tabletIndicatio ns:Vitamin D deficiency take 1 tablet by oral route every day 90 tablet 1 11/16/2022 Active Diclofenac Sodium 1 % gel APPLY TWO GRAM TO THE AFFECTED AREA(s) TWICE DAILY IN THE MORNING AND AT BEDTIME NEEDED FOR PAIN 01/05/2023 Active Blood Pressure kitIndications: Elevated blood pressure reading 1 Units in the morning. 1 kit 04/22/2023 Active etonogestrel-et hinyl estradiol (NuvaRing) 0.12-0.015 MG/24HR vaginal ringIndications :Uses control INSERT 1 RING VAGINALLY. LEAVE IN FOR THREE WEEKS THEN REMOVE 1 Ring. 11 02/03/2024 Active Active Problems Problem Noted Date Diagnosed Date Class 1 obesity 09/27/2024 Mass of upper outer quadrant of left breast 09/08 Assessment & Plan (09/27/2024 1:21 PM EST): Left breast mass @ 4 o'clock, per report not changing with periods. Will send for breast imaging following CRICO guidelines. F./u prn. Vitamin D deficiency 04/22/2023 Elevated blood pressure reading 04/22/2023 Assessment & Plan (04/22/2023 3:28 PM EDT): Elevated readings at time of visit with reading of 146/82 mmHg. Will send blood pressure cuff. Encouraged consistent monitoring at home nad will follow up in to assess home readings. Tinea pedis of both feet 01/21/2023 Lumbar back pain 01/04/2023 Assessment & Plan (01/04/2023 4:37 PM EST): SI joint and piriformis involvement, SLR negative. No saddle anesthesia or stool/bladder incontinence. Will send X ray and will refer to PT. If no improvement consider referral to pain management and/or more imaging to help determine etiology of symptoms Left shoulder pain 01/04/2023 Assessment & Plan (01/04/2023 4:36 PM EST): Ddx AC joint & rotator cuff involvement. Will send for X ray. Rx NSAID, consider trial of steroid injection Allergic rhinitis 06/22/2012 Encounters Date Type Department Care Team Description 11/22/2024 Telephone [facility] [address] [place] [address] Kimberli Patel MD MRI BREAST ORDER 11/21/[address] [phone] Kimberli Patel MD 11/08/2024 Orders Only [facility] External Provider, [facility] 10/17/2024 Telephone [facility] [address] [phone] Melissa Mejia, RN Results 10/17/2024 Telephone [facility] [address] [place], [place] [phone] Kimberli Patel MD 09/27/2024 1:00 PM EST Office Visit [facility] [address] [place] [address] Kimberli Patel MD Mass of lower outer quadrant of left breast (Primary Dx) 09/27/2024 Travel 09/26/[address] [facility] [address] [place] [address] Kimberli Patel MD Nurse Triage from Last 3 Months Immunizations Name Administration Dates Next Due Tdap 04/13/2019,07/01/2017 Family History Medical History Relation Name Comments Pancreatic cancer Brother Relation Name Status Comments Brother Social History Tobacco Use Types Packs/Day Years Used Date Smoking Tobacco: Never Passive Smoke Exposure: Never Smokeless Tobacco: Never Tobacco Cessation:Counseling Given: Not Answered Alcohol Use Standard Drinks/Week Comments Never 0 [...] Orientation Straight 09/06/2022 10 :18 AM EDT Last Filed Vital Signs Vital Sign Reading Time Taken Comments Blood Pressure 126/74 09/27/2024 1:02 PM EST Pulse 78 09/27/2024 1:02 PM EST Temperature 36.8 ??C (98.3 ??F) 09/27/2024 1:02 PM ES T Respiratory Rate 20 09/27/2024 1:02 PM EST Oxygen Saturation 98% 09/27/2024 1:02 PM EST Inhaled Oxygen Concentration - - Weight 72 kg (158 lb 12.8 oz) 09/27/2024 1:02 PM EST Height 154.9 cm (5' 1 ) 09/27/2024 1:02 PM EST Body Mass Index 30 09/27/2024 1:02 PM EST Plan of Treatment Health Maintenance Due Date Last Done Comments HIV Screening 1984 Alcohol/Substance Use Screening 1996 Family Planning (PISQ) 01/15/1999 Hepatitis C Screening 01/15/2002 Hepatitis B Vaccines (1 of 3 - 19+ 3-dose series) 01/15/2003 Dental Oral Exam 09/04/2023 03/04/2023 Dental Prophylaxis 09/19/2023 03/18/2023 Depression Screening 01/04/2024 01/04/2023, 01/04/20 SDOH Screening 01/04/2024 01/04/2023 Pap Smear 01/14/2024 01/13/2021 Dental X-Ray: Bitewings 03/05/2024 03/04/2023, 01/21 COVID-19 Vaccine ( - season) 2024 Influenza Vaccine (#1) 2024 Tobacco Screening 03/27/2025 03/27/2024 Cervical Cancer Screening 01/13/2026 HPV/Cotest 01/13/2026 01/13/2021, 01/31/2018 Dental X-Ray: Full Mouth 03/05/2026 03/04/2023 Mammogram 11/29/2026 11/29/2024, 12/2024, 11/08/2024, Additional history exists DTaP/Tdap/Td Vaccines (3 - Td or Tdap) 04/13/2029 04/13/2019, 07/01/2017 Zoster Vaccines (1 of 2) 01/15/2034 RSV Patients and Patients Aged 60 years or older (1 - 1-dose 75+ series) 01/15/2059 HIB Vaccines Aged Out No longer eligi ble based on patient's age to complete this topic HPV Vaccines Aged Out No longer eligi ble based on patient's age to complete this topic Hepatitis A Vaccines Aged Out No long er eligible based on patient's age to complete this topic IPV Vaccines Aged Out No longer eligi ble based on patient's age to complete this topic Meningococcal Vaccine Aged Out No william meng eligible based on patient's age to complete this topic Pneumococcal Vaccine: Pediatrics (0 to 5 Years) and At-Risk Patients (6 to 64 Years) Aged Out No longer eligible based on patient's age to complete this topic RSV under 20 months Aged Out No longe r eligible based on patient's age to complete this topic Rotavirus Vaccines Aged Out No longer eligible based on patient's age to complete this topic Procedures Procedure Name Priority Date/Time Associated Diagnosis Comments BI MAMMOGRAM DIAGNOSTIC TOMOSYNTHESIS LEFT Routine 11/29/2024 9:58 AM EST BI MAMMOGRAM DIAGNOSTIC TOMOSYNTHESIS LEFT Routine 11/08/2024 11:02 AM EST HEMATOXYLIN AND EOSIN STAIN Routine 11/08/2024 10:34 AM EST BI US BREAST LIMITED RIGHT Routine 11/08/2024 10:00 AM EST US BREAST NDL CORE BIO EA ADD Routine 11/08/2024 10:00 AM EST BI MR GUIDED BREAST BIOPSY LEFT Routine 11/08/2024 10:00 AM EST BI MR BREAST W AND WO CONTRAST BILATERAL Routine 11/02/2024 3:19 PM EST Abnormal mammogram of left breast Mass of upper outer quadrant of left breast BI US BREAST LIMITED LEFT Routine 10/16/2024 10:30 AM EST BI MAMMOGRAM DIAGNOSTIC TOMOSYNTHESIS BILATERAL Routine 10/16/2024 10:00 AM EST PROPHYLAXIS - ADULT Routine 03/18/2023 8 :00 AM EDT DIAGNOSTIC - DIAGNOSTIC IMAGING - INTRAORAL - COMPREHENSIVE SERIES OF RADIOGRAPHIC IMAGES Routine 03/04/2023 8:00 AM EDT COMPREHENSIVE ORAL EVALUATION - NEW OR ESTABLISHED PATIENT Routine 03/04/2023 8:00 AM EDT THINPREP PAP AND HPV MRNA E6/E7 Routine 01/13/2021 1:37 PM EST from Last 3 Months or Most Recently Relevant to Health Maintenance Results * BI Mammogram Diagnostic Tomosynthesis Left (11/29/2024 9:58 AM EST) Only the most recent of2 resultswithin the time period is included. Anatomical Region Laterality Modality Breast Left Mammography 11/29/2024 9:58 AM EST Narrative 11/30/2024 12:43 PM EST ? [facility] ? [address] ?[place] [address] ? Mammography Report ? Signed ? Patient: Jackson,Yeny V ?MR#: [id number] ?? [id number] ? : 1985 ?Acct:[id number] ? Age/Sex: 39 / F ?ADM Date: 11/29/24 ? Loc: HO.MAMMO ? Attending Dr: Mariusz Lassiter MD ? Ordering Physician: Mariusz Lassiter MD ?Results: 1Nega ?? tive ? Date of Service: 11/29/24 ?Follow Up: 1 Year From Orig ?? inal Mammogram ? Procedure(s): MM tomosynthesis diagnostic LT ?? Accession Number(s): [id number] ? cc: Mariusz Lassiter MD; Kimberli Patel [...] ??Dulce Richardson DO ??11/30/2024 12:40 PM EST ?? RP ? Dictated By: ?Dulce Richardson DO ? Signed By: ?<Electronically signed by Dulce Richardson, DO in OV> ? 11/30/24 1240 ? DD/ 0958 ? TD/TT: 11/29/24 1018 ? Heat Treating Furnace Tender: ? Procedure Note Bell, Image - 11/30/2024 [facility] [address] [place] [address] [place]. [place], [place] [address] Mammography Report Signed Patient: eYny Jackson R#: [id number] : 1985Acct:[id number] Age/Sex: 39 / FADM Date: 11/29/24 Loc: HO.MAMMO Attending Dr: Mariusz Lassiter MD Ordering Physician: Mariusz Lassiter MDResults: 1Nega tive Date of Service: 11/29/24Follow Up: 1 Year From [facility] ina Mammogram Procedure(s): MM tomosynthesis diagnostic LT Accession Number(s): [id number] cc: Mariusz Lassiter MD; Kimberli Patel MD [...] 11/30/24 1240 DD/ 0958 TD/TT: 11/29/24 1018 Heat Treating Furnace Tender: [facility] External Provider IMG BI PROCEDURES Final Result * Hematoxylin and Eosin Stain (11/08/2024 10:34 AM EST) 11/08/2024 10:3 4 AM EST 11/08/2024 12:06 PM EST [facility] - 11/12/2024 10:24 AM EST ----- ------- Name: Yeny Jackson V ?Age/Sex: 39/F ? : 1985 Unit#: [id number] ?? Attend Dr: Mariusz Lassiter MD ?Re11/08/24 ?Status: DEP REF ? Location: HO.MAMMO ?Disch: ? ----- ------- SPEC : [id number] ? RECD: 11/08/24 ? STATUS: ??SOUT ? REQ NUM: [id number] ? ARNAUD: 11/08/24-4 ? SUBM DR: Dulce Richardson DO ? ENTERED: ??11/08/24-0 ?SP TYPE: Surgical ? OTHR DR: Mariusz Lassiter MD ?Kimberli Patel MD ORDERED: ??HE Stain/4, Gross Micro L4/2, ER, MT, IHC, Add. immunos, IHC ER/MT/Her2N/4, ?E-cadherin, Ki-67, p63, SMM, [id number] COMMENTS: A. ??As stated on the requisition [...] V ?Age/Sex: 39/F ? : 1985 Unit#: [id number] ?? Attend Dr: Mariusz Lassiter MD ?Re11/08/24 ?Status: DEP REF ? Location: HO.MAMMO ?Disch: ? ----- ------- SPEC : [id number] ? RECD: 11/08/24-1206 ? STATUS: ??SOUT ? REQ NUM: [id number] ? ARNAUD: 11/08/24-1034 ? SUBM DR: Dulce Richardson DO ? ENTERED: ??11/08/24-1210 ?SP TYPE: Surgical ? OTHR DR: Mariusz Lassiter MD ?Kimberli Patel MD ORDERED: ??HE Stain/4, Gross Micro L4/2, ER, MT, IHC, Add. immunos, IHC ER/MT/Her2N/4, ?E-cadherin, Ki-67, p63, SMM, [id number] COMMENTS: A. ??As stated on the requisition [...] microscopic examination, multiple pieces in cassette B. smc Interpretive Information All tests are performed on formalin-fixed, paraffin-embedded tissue using automated immunostain methods: Estrogen receptor: ??Clone SP1; Dako Envision+ Dual Link System-HRP Progesterone receptor: ??Clone GiY644; Biocare Mach 4 detection system HER2: ??Hercep test; [...] V ?Age/Sex: 39/F ? : 1985 Unit#: [id number] ?? Attend Dr: Mariusz Lassiter MD ?Re11/08/24 ?Status: DEP REF ? Location: HO.MAMMO ?Disch: ? ----- ------- SPEC : [id number] ? RECD: 11/08/24-1205 ? STATUS: ??SOUT ? REQ NUM: [id number] ? ARNAUD: 11/08/24-4 ? SUBM DR: Dulce Richardson DO ? ENTERED: ??11/08/24-1210 ?SP TYPE: Surgical ? OTHR DR: Mariusz Lassiter MD ?Kimberli Patel MD ORDERED: ??HE Stain/4, Gross Micro L4/2, ER, MT, IHC, Add. immunos, IHC ER/MT/Her2N/4, ?E-cadherin, Ki-67, p63, SMM, [id number] COMMENTS: A. ??As stated on the requisition [...] and Progesterone Receptor Testing in Breast Cancer: [place] Society of Clinical Oncology/College of [place] Pathologists Guideline Update. Arch of Pathol Lab Med. 2020; 144(5): 545-563. Nolan ROCKWELL, Lianne SIMON, Lety BAUTISTA, et al. Her2 testing in breast cancer: [place] Society of Clinical Oncology/College of [place] Pathologists clinical practice guideline focused update. Arch Pathol Lab Med. 2018; 142(11): 5758-4415. Caryn N, Elkin P, et al. Adjuvant abemaciclib combined with endocrine therapy for high- risk early breast cancer: updated efficacy and Ki-67 analysis from the [facility] study. Mindy ? CONTINUED ON NEXT PAGE ----- ------- Name: Yeny Jackson V ?Age/Sex: 39/F ? : 1985 Unit#: [id number] ?? Attend Dr: Mariusz Lassiter MD ?Re11/08/24 ?Status: DEP REF ? Location: HO.MAMMO ?Disch: ? ----- ------- SPEC : [id number] ? RECD: 11/08/246 ? STATUS: ??SOUT ? REQ NUM: [id number] ? ARNAUD: 11/08/24-1034 ? SUBM DR: Dulce Richardson DO ? ENTERED: ??11/08/24-0 ?SP TYPE: Surgical ? OTHR DR: Mariusz Lassiter MD ?Kimberli Patel MD ORDERED: ??HE Stain/4, Gross Micro L4/2, ER, MT, IHC, Add. immunos, IHC ER/MT/Her2N/4, ?E-cadherin, Ki-67, p63, SMM, [id number] COMMENTS: A. ??As stated on the requisition time in formalin 1041 ?B. ??As stated on the requisition time in formalin 1055 ? Gross Description ?(Continued) Oncol. 2021 Dec;32(12):3717-1391. Lianne ME, Chaitanya DF, et al. ASCO/CAP Guideline Recommendations for Immunohistochemical Testing of Estrogen and Progesterone Receptors in Breast Cancer. J Clin Oncol, 28 (16), 2010: 8888-5236. This case was reviewed intradepartmentally. ??Results given to Dr.'s Richardson and Sravani by Dr. Irving on 11/12/2024 at 10:22 am. Special studies ordered and performed: ??Immunostains for ER, MT, HER2, Ki 67, E-cadherin, p63 and smooth muscle myosin on A1. Copies To: ?? Mariusz Lassiter MD ?? [facility] ?? [address] ?? [place] [address] ?? [phone] ?? Dulce Richardson DO ?? [address] [place] [address] ?? [place] ?? [phone] ?? Kimberli Patel MD ?? [address] [facility] ?? [place] ?? [phone] ----- ------- Signed (signature on file) Cornelia Irving 11/12/24 1024 ? ----- ------- ? END OF REPORT ? us Generic External Data Provider LAB BLOOD ORDERAB LES Final Result [facility] [address] [place] [address] [phone] * US BREAST NDL CORE BIO EA ADD (11/08/2024 10:00 AM EST) Anatomical Region Laterality Modality Abdomen Ultrasound 11/08/2024 10:0 0 AM EST Narrative 11/08/2024 1:04 PM EST ? [facility] ? [address] ?[place] [address] ? Ultrasound Report ? Signed with Addenda ? Patient: Jackson,Yeny V ?MR#: [id number] ?? [id number] ? : 1985 ?Acct:[id number] ? Age/Sex: 39 / F ?ADM Date: 11/08/24 ? Loc: HO.MAMMO ? Attending Dr: Mariusz Lassiter MD ? Ordering Physician: Mariusz Lassiter MD ?? Date of Service: 11/08/24 ?? Procedure(s): US breast ndl core bio ea add ?? Accession Number(s): [id number] ? cc: Mariusz Lassiter MD; Kimberli Patel [...] ??11/08/2024 01:01 PM EST ?? RP Workstation: [employer] ? / breast ndl core bio ea add ?? IMPRESSION: ?? 1. Status post ultrasound-guided core biopsy left breast and left ?? axilla. ?? 2. Pathology pending. ??An addendum report will be issued. ? Electronically signed by: ??Dulce Richardson DO ??11/08/2024 01:01 PM EST ?? RP Workstation: [employer] ? Dictated By: ?Dulce Richardson DO ? Signed By: ?<Electronically signed by Dulce Richardson, DO in OV> ? 11/19/24 1342 ? DD/ 1000 ? TD/TT: 11/08/24 1115 ? Heat Treating Furnace Tender: ? Procedure Note Doncristianmicaelainterpreter, Image - 12/02/2024 [place] [facility] [address] [place] [address] Ultrasound Report Signed with Matilde Patient: Yeny Jackson VMR#: [id number] : 1985Acct:[id number] Age/Sex: 39 / FADM Date: 11/08/24 Loc: [facility] Attending Dr: Mariusz Lassiter MD Ordering Physician: Mariusz Lassiter MD Date of Service: 11/08/24 Procedure(s): breast ndl core bio ea add Accession Number(s): [id number] cc: Mariusz Lassiter MD; Kimberli Patel MD [...] 11/19/24 1342 DD/ 1000 TD/TT: 11/08/24 1115 Heat Treating Furnace Tender: [facility] External Provider IMG US PROCEDURES Edited Result - Final * BI US Breast Limited Right (11/08/2024 10:00 AM EST) Anatomical Region Laterality Modality Breast Right Ultrasound 11/08/2024 10:0 0 AM EST Narrative 11/08/2024 12:15 PM EST ? [facility] ? [address] ?[place] [address] ? Ultrasound Report ? Signed ? Patient: Jackson,Yeny V ?MR#: [id number] ?? [id number] ? : 1985 ?Acct:[id number] ? Age/Sex: 39 / F ?ADM Date: 01/02/25 ? Loc: HO.MAMMO ? Attending Dr: Mariusz Lassiter MD ? Ordering Physician: Mariusz Lassiter MD ?? Date of Service: 11/08/24 ?? Procedure(s): US breast RT limited mamm only ?? Accession Number(s): [id number] ? cc: Mariusz Lassiter MD; Kimberli Patel [...] by Dulce Richardson, DO in OV> ? 11/08/24 1212 ? DD/ 1000 ? TD/TT: 11/08/24 1115 ? Heat Treating Furnace Tender: ? Procedure Note Donotuseinterpreter, Image - 11/20/2024 [facility] [address] [place], [place] [address] Ultrasound Report Signed Patient: Yeny Jackson VMR#: [id number] : 1985Acct:[id number] Age/Sex: 39 / FADM Date: 11/08/24 Loc: HO.MAMMO Attending Dr: Mariusz Lassiter MD Ordering Physician: Mariusz Lassiter MD Date of Service: 11/08/24 Procedure(s): US breast RT limited mamm only Accession Number(s): [id number] cc: Mariusz Lassiter MD; Kimberli Patel MD [...] 11/08/24 1212 DD/ 1000 TD/TT: 11/08/24 1115 Heat Treating Furnace Tender: [facility] External Provider IMG US PROCEDURES Edited Result - Final * BI MR Guided Breast Biopsy Left (11/08/2024 10:00 AM EST) Anatomical Region Laterality Modality Breast Left Magnetic Resonan ce 11/08/2024 10:0 0 AM EST Narrative 11/08/2024 1:04 PM EST ? [facility] ? [address] ?[place] [address] ? Ultrasound Report ? Signed with Addenda ? Patient: Yeny Jackson V ?MR#: [id number] ?? [id number] ? : 1985 ?Acct:[id number] ? Age/Sex: 39 / F ?ADM Date: 11/08/24 ? Loc: HO.MAMMO ? Attending Dr: Mariusz Lassiter MD ? Ordering Physician: Mariusz Lassiter MD ?? Date of Service: 11/08/24 ?? Procedure(s): US breast ndl core biopsy LT ?? Accession Number(s): [id number] ? cc: Mariusz Lassiter MD; Kimberli Patel [...] ??11/08/2024 01:01 PM EST ?? RP ? / breast ndl core biopsy LT ?? IMPRESSION: [...] DD/ 1000 ? TD/TT: 11/08/24 1115 ? Heat Treating Furnace Tender: ? Procedure Note Bell, Image - 12/02/2024 [place] [facility] [address] [place] [address] Ultrasound Report Signed with Matilde Patient: Yeny Jackson VMR#: [id number] : 1985Acct:[id number] Age/Sex: 39 / FADM Date: 11/08/24 Loc: [facility] Attending Dr: Mariusz Lassiter MD Ordering Physician: Mariusz Lassiter MD Date of Service: 11/08/24 Procedure(s): breast ndl core biopsy LT Accession Number(s): [id number] cc: Mariusz Lassiter MD; Kimberli Patel MD [...] 11/19/24 1342 DD/ 1000 TD/TT: 11/08/24 1115 Heat Treating Furnace Tender: [facility] External Provider IMG MRI PROCEDURES Edited Result - Final * BI MR Breast w and w/o Contrast Bilateral (11/02/2024 3:19 PM EST) Anatomical Region Laterality Modality Breast Bilateral Magnetic Resonan ce 11/02/2024 3:19 PM EST Narrative 11/08/2024 12:17 PM EST ? [facility] ?[address] ?[place] [address] ? Magnetic Resonance Report ? Signed ? Patient: Jackson,Yeny V ?MR#: [id number] ?? [id number] ? : 1985 ?Acct:[id number] ? Age/Sex: 39 / F ?ADM Date: 12/27/24 ? Loc: HO.MRI ? Attending Dr: Kimberli Patel MD ? Ordering Physician: Kimberli Patel MD ?? Date of Service: 11/02/24 ?? Procedure(s): MR breast BI wo/w con ?? Accession Number(s): [id number] ? cc: Kimberli Patel MD ? EXAMINATION: ?? MR BREAST WITHOUT AND WITH CONTRAST, BILATERAL ? CLINICAL INFORMATION: ?? Suspicious areas seen on recent mammogram and ultrasound of the left ?? breast for which biopsy is recommended and scheduled. ? COMPARISON: ?? Comparison is made to available prior examinations including diagnostic ?? mammogram and ultrasound October 16, 2024. ? TECHNIQUE: ?? MR imaging of the breast was performed using T1, T2 and fat saturated ?? techniques. Dynamic multiphase imaging was also performed after ?? administration of intravenous gadolinium contrast agent. Computer ?? generated 3-D reconstruction was utilized by the radiologist in the ?? interpretation of this examination. ? FINDINGS: ?? There is extreme dense fibroglandular breast tissue with moderate ?? background enhancement with bilateral scattered enhancing foci. ? LEFT BREAST: ? There is a solid irregular enhancing mass in the central outer left ?? breast far posterior depth 3:00 15 cm from the nipple measuring 21 mm ?? anterior to posterior by 19 mm transverse by 21 mm superior to inferior ?? series 1033 image 95/136. ?? Enlarged left axillary lymph node seen on prior diagnostic left ?? axillary ultrasound which is scheduled for biopsy today series 1033 ?? image 34/136. ? No other suspicious enhancing masses or areas of nonmass enhancement. ?? No architectural distortion. ?? No internal mammary adenopathy. ? RIGHT BREAST: ?? A few scattered enhancing foci in the upper outer breast series 1033 ?? images 77 7370 62/136. These likely represent background foci of ?? enhancement. ?? Question prominent axillary lymph node series 1033 image 32/136. ? No other suspicious enhancing masses or areas of nonmass enhancement. ?? No architectural distortion. ?? No internal mammary adenopathy. ? Limited views of the chest and abdomen are unremarkable. ? MR/MR breast BI wo/w con ?? IMPRESSION: ? Left: ?? Suspicious irregular solid mass in the central outer left breast far ?? posterior depth and enlarged axillary lymph node. Patient is scheduled ?? for ultrasound-guided core needle biopsy of both areas today. ? Right: ?? 1. Probably benign enhancing foci in the upper outer right breast for ?? which second look MRI directed ultrasound is recommended and if normal ?? a six-month follow-up MRI is recommended for further evaluation of ?? stability. ??Second look MRI directed ultrasound was be performed today ?? and was benign therefore six month followup MRI recommended. ? 2. Question prominent axillary lymph nodes. Ultrasound is recommended ?? and was be performed today confirming normal axillary tissue. ? ASSESSMENT: ?? LEFT BREAST: BI-RADS 4 suspicious. ? RIGHT BREAST: BI-RADS 3 probably benign. Recommend six-month follow-up ?? MRI for further evaluation of stability. ? RECOMMENDATIONS: ?? BI-RADS 4 suspicious findings in the left breast. Ultrasound-guided ?? core needle biopsy is recommended and will be performed today. ? Recommend 6 month follow-up breast MRI for further evaluation of ?? stability probably benign enhancing foci in the right breast. ? Electronically signed by: ??Dulce Richardson DO ??11/08/2024 12:14 PM EST ? Dictated By: ?Dulce Richardson DO ? Signed By: ?<Electronically signed by Dulce Richardson, DO in OV> ? 11/08/24 1214 ? DD/ 1519 ? TD/TT: 11/02/24 1645 ? Heat Treating Furnace Tender: ? Procedure Note Donluister, Image - 11/08/2024 [place] [address] Magnetic Resonance Report Signed Patient: Yeny Jackson R#: [id number] : 1985Acct:[id number] Age/Sex: 39 / FADM Date: 11/02/24 Loc: HO.MRI Attending Dr: Kimberli Patel MD Ordering Physician: Kimberli Patel MD Date of Service: 11/02/24 Procedure(s): MR breast BI wo/w con Accession Number(s): [id number] cc: Kimberli Patel MD EXAMINATION: MR BREAST WITHOUT AND WITH CONTRAST, BILATERAL CLINICAL INFORMATION: Suspicious areas seen on recent mammogram and ultrasound of the left breast for which biopsy is recommended and scheduled. COMPARISON: Comparison is made to available prior examinations including diagnostic mammogram and ultrasound October 16, 2024. TECHNIQUE: MR imaging of the breast was performed using T1, T2 and fat saturated techniques. Dynamic multiphase imaging was also performed after administration of intravenous gadolinium contrast agent. Computer generated 3-D reconstruction was utilized by the radiologist in the interpretation of this examination. FINDINGS: There is extreme dense fibroglandular breast tissue with moderate background enhancement with bilateral scattered enhancing foci. LEFT BREAST: There is a solid irregular enhancing mass in the central outer left breast far posterior depth 3:00 15 cm from the nipple measuring 21 mm anterior to posterior by 19 mm transverse by 21 mm superior to inferior series 1033 image 95/136. Enlarged left axillary lymph node seen on prior diagnostic left axillary ultrasound which is scheduled for biopsy today series 1033 image 34/136. No other suspicious enhancing masses or areas of nonmass enhancement. No architectural distortion. No internal mammary adenopathy. RIGHT BREAST: A few scattered enhancing foci in the upper outer breast series 1033 images 77 [phone] 62/136. These likely represent background foci of enhancement. Question prominent axillary lymph node series 1033 image 32/136. No other suspicious enhancing masses or areas of nonmass enhancement. No architectural distortion. No internal mammary adenopathy. Limited views of the chest and abdomen are unremarkable. MR/MR breast BI wo/w con IMPRESSION: Left: Suspicious irregular solid mass in the central outer left breast far posterior depth and enlarged axillary lymph node. Patient is scheduled for ultrasound-guided core needle biopsy of both areas today. Right: 1. Probably benign enhancing foci in the upper outer right breast for which second look MRI directed ultrasound is recommended and if normal a six-month follow-up MRI is recommended for further evaluation of stability. Second look MRI directed ultrasound was be performed today and was benign therefore six month followup MRI recommended. 2. Question prominent axillary lymph nodes. Ultrasound is recommended and was be performed today confirming normal axillary tissue. ASSESSMENT: LEFT BREAST: BI-RADS 4 suspicious. RIGHT BREAST: BI-RADS 3 probably benign. Recommend six-month follow-up MRI for further evaluation of stability. RECOMMENDATIONS: BI-RADS 4 suspicious findings in the left breast. Ultrasound-guided core needle biopsy is recommended and will be performed today. Recommend 6 month follow-up breast MRI for further evaluation of stability probably benign enhancing foci in the right breast. Electronically signed by: Dulce Richardson DO 11/08/2024 12:14 PM EST RP Dictated By: Dulce Richardson DO Signed By: <Electronically signed by Dulce Richardson DO in OV> 11/08/24 1214 DD/ 1519 TD/TT: 11/02/24 1645 Heat Treating Furnace Tender: us Kimberli Patel MD IMG MRI PROCEDURES Edited Res ult - Final * BI US Breast Limited Left (10/16/2024 10:30 AM EST) Anatomical Region Laterality Modality Breast Left Ultrasound 10/16/2024 10:3 0 AM EST Narrative 10/16/2024 11:31 AM EST ? [facility] ? [address] ?[place] [address] ? Ultrasound Report ? Signed ? Patient: Manuel,Yeny V ?MR#: [id number] ?? [id number] ? : 1985 ?Acct:[id number] ? Age/Sex: 39 / F ?ADM Date: 10/16/24 ? Loc: HO.MAMMO ? Attending Dr: Kimberli Patel MD ? Ordering Physician: Kimberli Patel MD ?? Date of Service: 10/16/24 ?? Procedure(s): US breast LT limited mamm only ?? Accession Number(s): [id number] ? cc: Kimberli Patel MD ? EXAMINATION: ?? MM DIAGNOSTIC DIGITAL BREAST TOMOSYNTHESIS, BILATERAL ?? Limited left breast ultrasound. ? CLINICAL INFORMATION: ? 39-year-old female with palpable left breast lump. ? COMPARISON: ?? Mammography: Comparison is made with relevant prior exams. ? TECHNIQUE: ?? Digital breast mammography with tomosynthesis is performed in both the ?? craniocaudal and mediolateral oblique views along with computer-aided ?? detection ? Limited left breast ultrasound. ? FINDINGS: ?? The breasts are heterogeneously dense, which may obscure small masses ?? (ACR BI-RADS breast composition Category c). ? There is a BB marker in the upper outer quadrant with an underlying 2 ?? cm spiculated mass at posterior depth. ?? No suspicious calcifications or other abnormal findings. ? Targeted color Doppler ultrasound scanning in the upper outer quadrant ?? area of patient's pain demonstrates a irregular solid mass at 3:00 13 ?? cm from nipple measuring 18 x 17 x 13 mm which correlates with the ?? spiculated mass seen on mammography. ?? Targeted ultrasound scanning in the retroareolar region and upper ?? central breast and upper outer quadrant otherwise demonstrates normal ?? fibroglandular breast tissue. ? Targeted color Doppler ultrasound scanning in the left axilla ?? demonstrates a irregular mass which could represent a replaced lymph ?? node. ?? Otherwise there are a few normal axillary lymph nodes. ? Results are provided to the patient at time of visit by the ?? technologist. ? US/US breast LT limited mamm only ?? IMPRESSION: ?? Solid irregular mass at 3:00. Recommend histology with ?? ultrasound-guided core needle biopsy at this time. The findings and ?? recommendations were discussed with the patient the procedure will be ?? scheduled. ? Solid mass in the left axilla. Ultrasound-guided core needle biopsy is ?? recommended at this time. The findings and recommendations were ?? discussed with the patient the procedure will be scheduled. ? The patient has dense breast tissue. Recommend breast MRI for further ?? evaluation. ? ASSESSMENT: ? BI-RADS BI-RADS 4 - Suspicious finding ? RECOMMENDATION: ? Left breast biopsy and left axillary biopsy recommended at this time. ? This patient's information was entered into a reminder system with a ?? target due date for their next mammogram. ? Electronically signed by: ??Dulce Richardson DO ??10/16/2024 11:27 AM EST ?? RP ? Dictated By: ?Dulce Richardson DO ? Signed By: ?<Electronically signed by Dulce Richardson, DO in OV> ? 10/16/24 1127 ? DD/ 1030 ? TD/TT: 10/16/24 1110 ? Heat Treating Furnace Tender: ? Procedure Note Rosa Luu - 10/16/2024 [place] [facility] [address] [place] [address] Ultrasound Report Signed Patient: Yeny Jackson R#: [id number] : 1985Acct:[id number] Age/Sex: 39 / FADM Date: 10/16/24 Loc: HO.MAMMO Attending Dr: Kimberli Patel MD Ordering Physician: Kimberli Patel MD Date of Service: 10/16/24 Procedure(s): US breast LT limited mamm only Accession Number(s): [id number] cc: Kimberli Patel MD EXAMINATION: MM DIAGNOSTIC DIGITAL BREAST TOMOSYNTHESIS, BILATERAL Limited left breast ultrasound. CLINICAL INFORMATION: 39-year-old female with palpable left breast lump. COMPARISON: Mammography: Comparison is made with relevant prior exams. TECHNIQUE: Digital breast mammography with tomosynthesis is performed in both the craniocaudal and mediolateral oblique views along with computer-aided detection Limited left breast ultrasound. FINDINGS: The breasts are heterogeneously dense, which may obscure small masses (ACR BI-RADS breast composition Category c). There is a BB marker in the upper outer quadrant with an underlying 2 cm spiculated mass at posterior depth. No suspicious calcifications or other abnormal findings. Targeted color Doppler ultrasound scanning in the upper outer quadrant area of patient's pain demonstrates a irregular solid mass at 3:00 13 cm from nipple measuring 18 x 17 x 13 mm which correlates with the spiculated mass seen on mammography. Targeted ultrasound scanning in the retroareolar region and upper central breast and upper outer quadrant otherwise demonstrates normal fibroglandular breast tissue. Targeted color Doppler ultrasound scanning in the left axilla demonstrates a irregular mass which could represent a replaced lymph node. Otherwise there are a few normal axillary lymph nodes. Results are provided to the patient at time of visit by the technologist. US/US breast LT limited mamm only IMPRESSION: Solid irregular mass at 3:00. Recommend histology with ultrasound-guided core needle biopsy at this time. The findings and recommendations were discussed with the patient the procedure will be scheduled. Solid mass in the left axilla. Ultrasound-guided core needle biopsy is recommended at this time. The findings and recommendations were discussed with the patient the procedure will be scheduled. The patient has dense breast tissue. Recommend breast MRI for further evaluation. ASSESSMENT: BI-RADS BI-RADS 4 - Suspicious finding RECOMMENDATION: Left breast biopsy and left axillary biopsy recommended at this time. This patient's information was entered into a reminder system with a target due date for their next mammogram. Electronically signed by: Dulce Richardson DO 10/16/2024 11:27 AM EST RP Dictated By: Dulce Richardson DO Signed By: <Electronically signed by Dulce Richardson DO in OV> 10/16/24 1127 DD/ 1030 TD/TT: 10/16/24 1110 Heat Treating Furnace Tender: us Kimberli Patel MD IMG PROCEDURES Final Resul t * BI Mammogram Diagnostic Tomosynthesis Bilateral (10/16/2024 10:00 AM EST) Anatomical Region Laterality Modality Breast Bilateral Mammography 10/16/2024 10:0 0 AM EST Narrative 10/16/2024 11:31 AM EST ? [facility] [place] ? [address] ?[place] [address] ? Mammography Report ? Signed ? Patient: Jackson,Yeny V ?MR#: [id number] ?? [id number] ? : 1985 ?Acct:[id number] ? Age/Sex: 39 / F ?ADM Date: 12/10/24 ? Loc: HO.MAMMO ? Attending Dr: Kimberli Patel MD ? Ordering Physician: Kimberli Patel MD ?Results: 4Susp ?? icious Finding ? Date of Service: 12/10/24 ?Follow Up: Biopsy Recommend ?? ed ? Procedure(s): MM tomosynthesis diagnostic BI ?? Accession Number(s): [id number] ? cc: Kimberli Patel MD ? EXAMINATION: ?? MM DIAGNOSTIC DIGITAL BREAST TOMOSYNTHESIS, BILATERAL ?? Limited left breast ultrasound. ? CLINICAL INFORMATION: ? 39-year-old female with palpable left breast lump. ? COMPARISON: ?? Mammography: Comparison is made with relevant prior exams. ? TECHNIQUE: ?? Digital breast mammography with tomosynthesis is performed in both the ?? craniocaudal and mediolateral oblique views along with computer-aided ?? detection ? Limited left breast ultrasound. ? FINDINGS: ?? The breasts are heterogeneously dense, which may obscure small masses ?? (ACR BI-RADS breast composition Category c). ? There is a BB marker in the upper outer quadrant with an underlying 2 ?? cm spiculated mass at posterior depth. ?? No suspicious calcifications or other abnormal findings. ? Targeted color Doppler ultrasound scanning in the upper outer quadrant ?? area of patient's pain demonstrates a irregular solid mass at 3:00 13 ?? cm from nipple measuring 18 x 17 x 13 mm which correlates with the ?? spiculated mass seen on mammography. ?? Targeted ultrasound scanning in the retroareolar region and upper ?? central breast and upper outer quadrant otherwise demonstrates normal ?? fibroglandular breast tissue. ? Targeted color Doppler ultrasound scanning in the left axilla ?? demonstrates a irregular mass which could represent a replaced lymph ?? node. ?? Otherwise there are a few normal axillary lymph nodes. ? Results are provided to the patient at time of visit by the ?? technologist. ? MM/MM tomosynthesis diagnostic BI ?? IMPRESSION: ?? Solid irregular mass at 3:00. Recommend histology with ?? ultrasound-guided core needle biopsy at this time. The findings and ?? recommendations were discussed with the patient the procedure will be ?? scheduled. ? Solid mass in the left axilla. Ultrasound-guided core needle biopsy is ?? recommended at this time. The findings and recommendations were ?? discussed with the patient the procedure will be scheduled. ? The patient has dense breast tissue. Recommend breast MRI for further ?? evaluation. ? ASSESSMENT: ? BI-RADS BI-RADS 4 - Suspicious finding ? RECOMMENDATION: ? Left breast biopsy and left axillary biopsy recommended at this time. ? This patient's information was entered into a reminder system with a ?? target due date for their next mammogram. ? Electronically signed by: ??Dulce Richardson DO ??10/16/2024 11:27 AM EST ? Dictated By: ?Dulce Richardson DO ? Signed By: ?<Electronically signed by Dulce Richardson, in OV> ? 10/16/247 ? DD/ 1000 ? TD/TT: 10/16/24 1110 ? Heat Treating Furnace Tender: ? Procedure Note Donluister, Image - 10/16/2024 [place] [facility] [address] [place] [address] Mammography Report Signed Patient: Yeny Jackson VMR#: [id number] : 1985Acct:[id number] Age/Sex: 39 / FADM Date: 10/16/24 Loc: HO.MAMMO Attending Dr: Kimberli Patel MD Ordering Physician: Kimberli Patel MDResults: 4Susp icious Finding Date of Service: 10/16/24Follow Up: Biopsy Recommend ed Procedure(s): MM tomosynthesis diagnostic BI Accession Number(s): [id number] cc: Kmiberli Patel MD EXAMINATION: MM DIAGNOSTIC DIGITAL BREAST TOMOSYNTHESIS, BILATERAL Limited left breast ultrasound. CLINICAL INFORMATION: 39-year-old female with palpable left breast lump. COMPARISON: Mammography: Comparison is made with relevant prior exams. TECHNIQUE: Digital breast mammography with tomosynthesis is performed in both the craniocaudal and mediolateral oblique views along with computer-aided detection Limited left breast ultrasound. FINDINGS: The breasts are heterogeneously dense, which may obscure small masses (ACR BI-RADS breast composition Category c). There is a BB marker in the upper outer quadrant with an underlying 2 cm spiculated mass at posterior depth. No suspicious calcifications or other abnormal findings. Targeted color Doppler ultrasound scanning in the upper outer quadrant area of patient's pain demonstrates a irregular solid mass at 3:00 13 cm from nipple measuring 18 x 17 x 13 mm which correlates with the spiculated mass seen on mammography. Targeted ultrasound scanning in the retroareolar region and upper central breast and upper outer quadrant otherwise demonstrates normal fibroglandular breast tissue. Targeted color Doppler ultrasound scanning in the left axilla demonstrates a irregular mass which could represent a replaced lymph node. Otherwise there are a few normal axillary lymph nodes. Results are provided to the patient at time of visit by the technologist. MM/MM tomosynthesis diagnostic BI IMPRESSION: Solid irregular mass at 3:00. Recommend histology with ultrasound-guided core needle biopsy at this time. The findings and recommendations were discussed with the patient the procedure will be scheduled. Solid mass in the left axilla. Ultrasound-guided core needle biopsy is recommended at this time. The findings and recommendations were discussed with the patient the procedure will be scheduled. The patient has dense breast tissue. Recommend breast MRI for further evaluation. ASSESSMENT: BI-RADS BI-RADS 4 - Suspicious finding RECOMMENDATION: Left breast biopsy and left axillary biopsy recommended at this time. This patient's information was entered into a reminder system with a target due date for their next mammogram. Electronically signed by: Dulce Richardson DO 10/16/2024 11:27 AM EST Dictated By: Dulce Richardson DO Signed By: <Electronically signed by Dulce Richardson DO in OV> 10/16/24 1127 DD/ 1000 TD/TT: 10/16/24 1110 Heat Treating Furnace Tender: us Kimberli Patel MD IM BI PROCEDURES Final Resul t * THINPREP PAP AND HPV mRNA E6/E7 (01/13/2021 1:37 PM EST) Clinical Information: None given [facility] COMMENT SEE COMMENT [facility] Comment: EXPLANATORY NOTE: ? The Pap is a screening test for cervical cancer. It is ?? not a diagnostic test and is subject to false negative ?? and false positive results. It is most reliable when a ?? satisfactory sample, regularly obtained, is submitted ?? with relevant clinical findings and history, and when ?? the Pap result is evaluated along with historic and ?? current clinical information. ?? Gamer: SEE COMMENT [facility] Comment: KAILEE MERAZ(ASCP) CT screening location: [address] ??[address] HPV nRNA E6/E7 Not Detected Not Detected [facility] Comment: Methodology: Powertrain Design Engineer-Mediated Amplification This assay detects E6/E7 viral messenger RNA (mRNA) from 14 high-risk HPV types (16,18,31,33,35,39,45,51,52,56,58,59,66,68). ? The analytical performance characteristics of this assay have been determined by [employer]. The modifications have not been cleared or approved by the FDA. This assay has been validated pursuant to the CLIA regulations and is used for clinical purposes. ?? For additional information, please refer to http://education.[employer]/faq/OJL158w4 (This link if provided for information/ educational purposes only.) Interpretation/Re sult: Negative for intraepithelial lesion or malignancy. [facility] LMP: NONE [facility]IV[facility] Prev. BX: NONE [facility]IVEN [facility] Prev. PAP: NONE GIVEN [facility] SOURCE: None given [facility] Statement Of Adequacy: SEE COMMENT [facility] Comment: Satisfactory for evaluation. Endocervical/transformation zone component present. Age and/or menstrual status not provided 01/13/2021 1:37 PM EST us Venecia Dumont CNM LAB PATHOLOGY ORDERABLES Final Result [facility] [address] from Last 3 Months or Most Recently Relevant to Health Maintenance Insurance [facility] HSN FULL DENTAL-[facility] MEDICAID LIMITED ADULT DENTAL - N FULL (MEDICAID) Care Teams Technology Advisor Relationship Specialty Start Date End Date Kimberli Patel MD [address] [place] [id number] PCP - General Family Medicine 11/24/21
[2024-12-03] MEDS: Lidocaine 4 % Cream KIT 1 APPL TOPICAL (07:39)
[2024-12-03 08:03] LABS: UPreg QC Valid YES; Urine Pregnancy NEGATIVE (NEGATIVE)
--- NOTE | 2024-12-03 08:57 | MHC.SHP ---
Pre-Procedural Eval Section A - 24 Hr Update-Section A only Date of Service: 12/03/24 The patient is an INPATIENT: No Changes since office visit: Yes Patient answered all questions; No Cold of Flu in the past 2 weeks, No New Medical Problems and No Changes in Medication The patient has been examined within 24 hours of the surgical procedure. 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 No changes have occurred unless specified. Time Spent With Patient Time: Total time managing care of this patient today ____ minutes.
--- NOTE | 2024-12-03 10:00 | P.CONAN_ITS ---
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 delivery delivered Social History Social History Alcohol intake: never Patient Tobacco Use Status: Never used Tobacco Use of substances other than those prescribed or required for medical reasons: No Are you DNR?: No Advance Directives: No Advance Directives Information Provided: Yes Meds Allergies Allergy/AdvReac Type Severity Reaction Status Date / Time No Known Allergies Allergy Unverified 11/16/24 10:47 [No Known Allergies*] Assessment and Plan Assessment Anesthesia Assessment: Chart Reviewed Documented by User: Yazmin Camacho DO 12/03/24 10:33 PMFSH Past Medical History Medical History 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 delivery delivered Family History Family history of problems with anesthesia: No Surgical History History of Problems with Anesthesia: No Social History Social History Alcohol intake: never Patient Tobacco Use Status: Never used Tobacco Use of substances other than those prescribed or required for medical reasons: No Are you DNR?: No Advance Directives: No Advance Directives Information Provided: Yes Meds Allergies Allergy/AdvReac Type Severity Reaction Status Date / Time No Known Allergies Allergy Unverified 11/16/24 10:47 [No Known Allergies*] Exam Exam Date and Time: 12/03/24 1000 Height,Weight and Vital Signs: Height 5 ft 1 in Weight 69.4 kg Vital Signs Temperature 98.0 F 12/03/24 07:36 Pulse Rate 77 12/03/24 07:36 Respiratory Rate 16 12/03/24 07:36 Blood Pressure 130/77 12/03/24 07:36 Pulse Oximetry 100 12/03/24 07:36 Oxygen Delivery Method Room Air 12/03/24 07:36 Temperature 98.0 F 12/03/24 07:36 Pulse Rate 77 12/03/24 07:36 Respiratory Rate 16 12/03/24 07:36 Blood Pressure 130/77 12/03/24 07:36 Pulse Oximetry 100 12/03/24 07:36 Oxygen Delivery Method Room Air 12/03/24 07:36 Airway Mallampati Class: I TM Dist: >3cm Neck ROM: Full Loose/Missing/Broken Teeth: No (patient denies any loose or broken teeth) Heart: S1S2 Lungs: CTAB Assessment and Plan Assessment Anesthesia Assessment: Anesthesia Plan Discussed and Chart Reviewed Final Anesthetic Review Family History of Problems with Anesthesia: No History of Problems with Anesthesia: No NPO: Yes ASA Class: II Final Preanesthetic Review: No Changes in Pt Med Stat, Meds/Allgs Chart Reviewed, Consent Obtained/Reviewed and Anes Risks/Benef Reviewed Patient Risk: Low Procedure Risk: Low Anesthetic Plan Anesthetic Plan: GA and Agree w/ Assess. and Plan Disposition: Standard PACU
--- NOTE | 2024-12-03 11:40 | P.OP_ITS ---
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 Patient also had an abnormally enlarged lymph node which was previously biopsied but revealed benign breast tissue. This was still felt to be suspicious for malignancy as well. She underwent LOCalizer clip placement of both the invasive ductal carcinoma/DCIS as well as the abnormally enlarged lymph node. Operative findings: Specimen x-ray of the breast lesion confirmed marking clip and localizer within the specimen. Margins were felt to be close in both the anterior/inferior and posterior margins. Additional margins were taken of these. A very large lymph node was identified which was x-rayed and confirmed the marking clip within the specimen. The localizer clip was found adjacent to this as well. Specimen: 1. Left breast lumpectomy with localizer, 2. Posterior margin, 3. Hale node 1., 4. Hale node 2., 5. Hale node 3., 6. Enlarged lymph node with marking clip, 7. Superficial margin, 8. Inferior margin. Estimated blood loss: 10 mL Complications: None Procedure details: Patient was brought to the OR and placed in a supine position. After administering general anesthesia the patient's left breast was prepped with ChloraPrep and draped in a sterile fashion. A surgical time-out was called the consent confirmed. Patient received preoperative antibiotics and Venodyne boots were in place. Using the localizer, marking clip was identified in the lower outer quadrant of the left breast. Curvilinear incision was then made directly over the clip. This was carried out through subcutaneous tissue. Superior and inferior skin flaps were then created using in the electrocautery. A core of tissue surrounding the localizing clip was then performed using electrocautery extending down to the chest wall. Specimen was passed off the table as a specimen x-ray confirmed the marking clip and localizer within the specimen. Specimen was felt to be close to the posterior margin therefore additional posterior margin was obtained and sent as a separate specimen. After gross evaluation by pathology additional margins were obtained from the superficial/anterior margin as well as the inferior margin both sent as separate specimens. Attention was then directed to the axilla where the gamma probe was used to identify the area of activity. In additionally the localizer tag was identified using the localizer. A curvilinear incision was made below the axilla and carried out through subcutaneous tissue and past clavipectoral fascia. Several enlarged lymph nodes were identified by palpation. These were found to be radioactive with a gamma probe. A total of 3 sentinel nodes were identified using the gamma probe and each sent as a separate specimen. The localizer was then used to identify an additional node which was markedly enlarged and located more in the lateral axilla. A specimen x-ray was performed of this node and this confirmed the marking clip within the specimen. No other palpable nodes or radioactive nodes could be identified at this time. Attention was returned to the breast incision. The wounds were irrigated with saline solution and suctioned dry. Hemoclips were used to cristhian the cavity. Breast tissue was reapproximated using interrupted 3-0 Polysorb sutures. Subcutaneous tissue and dermis were then reapproximated using interrupted 3-0 Polysorb sutures. Skin was closed using a running subcuticular 4-0 Polysorb suture. Attention was then directed to the axillary incision. Wounds were irrigated with saline solution and checked for hemostasis. Clavipectoral fascia was reapproximated using interrupted 3-0 Polysorb sutures. Dermis was reapproximated using interrupted 3-0 Polysorb sutures. Skin was then closed using a running subcuticular 4-0 Polysorb suture. Both incisions were Steri-Strips and covered with 4 x 4 gauze and Tegaderm. The patient tolerated the procedure well. Sponge, instrument, and needle counts reported as correct. The patient was transferred to PACU in stable condition. Breast Hale Node Biopsy Substrate(s) used for sentinel node biopsy in the non-neoadjuvant setting: Radi otracer and Clips Substrate(s) used for sentinel node biopsy in the neoadjuvant setting: N/A All colored nodes or non-colored nodes present at the end of a dye filled lymphatic channel were removed, if dye was used as the substrate for localization: N/A All significantly radioactive nodes were removed, if radionuclide was used as the substrate for localization: Yes All palpably suspicious nodes were removed, if present: Yes If clips were placed in pathology-involved nodes, those nodes were identified and removed: Yes Procedure performed with curative intent?: Yes General Surg. - Synoptic Notes Breast Hale Node Biopsy Substrate(s) used for sentinel node biopsy in the non-neoadjuvant setting: Radiotracer and Clips Substrate(s) used for sentinel node biopsy in the neoadjuvant setting: N/A All colored nodes or non-colored nodes present at the end of a dye filled lymphatic channel were removed, if dye was used as the substrate for l ocalization: N/A All significantly radioactive nodes were removed, if radionuclide was used as the substrate for localization: Yes All palpably suspicious nodes were removed, if present: Yes If clips were placed in pathology-involved nodes, those nodes were identified and removed: Yes Procedure performed with curative intent?: Yes
[2024-12-03] MEDS: fentaNYL citrate/PF 100 MCG/2 ML VIAL 50 MCG IVPUSH ×2 (12:45→12:59)
[2024-12-03] MEDS: Haloperidol Lactate 5 MG/ML VIAL 1 MG IVPUSH (13:51)
== END 2024-12-03 15:36 | disposition home or self-care (01) ==
PROVIDERS: Nurse Practitioner; PCP Family Medicine; Visit Provider Surgery
PROC: (CPT 19301; principal; 2024-12-03 11:10)
PROC: (CPT 19301; 2024-12-03 11:10)
DX: C50.412 Malignant neoplasm of upper-outer quadrant of left female breast (principal); C77.3 Secondary and unspecified malignant neoplasm of axilla and upper limb lymph nodes; Z17.0 Estrogen receptor positive status [ER+]; Z17.21 Progesterone receptor positive status; Z17.32 Human epidermal growth factor receptor 2 negative status; R59.0 Localized enlarged lymph nodes; R92.8 Other abnormal and inconclusive findings on diagnostic imaging of breast; Z79.1 Long term (current) use of non-steroidal anti-inflammatories (NSAID)
CPT/HCPCS: 19301; 38525; 38900; 78195; 81025; 88305; 88307; 88329; 88342; A9520; C1889; J0131; J0690; J1100; J1630; J2003; J2250; J2405; J2704; J2795; J3010

== ENCOUNTER → 2024-12-03 06:43 | Outpatient (BNV) | payer MEDICAID, SELFPAY | PROVIDERS: PCP Family Medicine; Visit Provider Surgery | DX: C50.512 Malignant neoplasm of lower-outer quadrant of left female breast (principal) | CPT/HCPCS: 19301; 38525; 38900 ==

== ENCOUNTER → 2024-12-03 07:46 | Outpatient (BNV) | payer SELFPAY | PROVIDERS: PCP Family Medicine; Visit Provider Radiology Diagnostic Radiology | DX: D05.12 Intraductal carcinoma in situ of left breast (principal) | CPT/HCPCS: 78195 ==

== ENCOUNTER 2024-12-14 10:16 | Outpatient (AMB) | payer MEDICAID, SELFPAY ==
--- NOTE | 2024-12-14 10:16 | A.OFFVIS_ITS ---
Vital Signs 3 12/14/24 10:30 Height 5 ft 1 in Weight 152 lb BMI 28.7 BP 125/74 Blood Pressure Location Lt brachial Position Sitting Pulse 81 Intake Visit Reasons: S/P Lt brst lumpectomy w/localizer & Lt. SN bx Intake Note: Patient is seen in office for post op assessment post Left breast lumpectomy, with localizer, left axillary sentinel node biopsy. Pt c/o: admits to minimal sore and tender, denies discharge, redness or other concerns Yacht Master Required: No Accompanied by: Family/Other Allergies No Known Allergies [No Known Allergies*] Allergy (Unverified 12/14/24 10:30) HPI Comments Details: 39-year-old female patient presenting with a 2 month history of a palpable mass located in the left breast at the outer quadrant. She denies any recent changes in the size of the lump and denies a previous history of breast surgery. She did have a previous lump located in the nipple area which was determined to be benign many years ago. She reports some pain associated with the new lump in the left breast. She denies a family history of breast problems breast cancer. She is with a 17-year-old and 7-year-old child. She underwent evaluation with a mammogram bilateral and ultrasound left breast which confirmed a density in the 3 o'clock position and axilla felt to be suspicious for malignancy. She underwent ultrasound-guided core biopsy on 11/08/2024 at the [facility]. 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 Biopsy of a left axillary node revealed fibrovascular tissue only with no lymph node or breast tissue present for evaluation. Immunohistochemical stains: Estrogen receptor positive, progesterone receptor positive, HER2 Ruth negative, Ki-67 low. She underwent left breast lumpectomy with sentinel node biopsy on 12/03/2024. Final pathology revealed invasive ductal carcinoma, grade 2, 2 cm extending to the anterior margin within microns of the inferior and posterior margin. 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 Additional margins of the anterior, posterior and inferior margin were negative for additional carcinoma. Two of 4 lymph nodes were positive for metastatic carcinoma. PT1c N1a (sn) (AJCC stage 8th edition). [facility], LAT[facility] Medical History 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 delivery delivered Surgical History History of lumpectomy of left breast (12/03/24) Social History Alcohol intake: never Patient Tobacco Use Status: Never used Tobacco Physical Exam Const General: cooperative and no acute distress Nutritional Appearance: well nourished Limitations: no limitations Chest Other: Left breast: Incision in left axilla and upper outer quadrant is clean, dry, and intact without redness or discharge. Steri-Strips are intact. No evidence of hematoma or seroma. Chest/axillae images: 2 1. Upper outer quadrant incision clean, dry, and intact. 2. Axillary incision is clean and intact without redness or discharge. Resp Effort & Inspection: normal respiratory effort, no audible wheezes, no cough and no respiratory distress Cardio Jugular venous distension: no JVD Skin Other: Warm, dry, no rash Extrem General: Yes no clubbing, cyanosis or edema Assessment & Plan Assessment & Plan (1) Invasive ductal carcinoma of left breast: Code(s): C50.912 - Malignant neoplasm of unspecified site of left female breast Category: Medical (2) Ductal carcinoma in situ of left breast: Code(s): D05.12 - Intraductal carcinoma in situ of left breast Category: Medical Plan 39-year-old female patient recently diagnosed with invasive ductal carcinoma with DCIS returning today 1 week following left breast lumpectomy with localizer and left axillary sentinel node biopsy. Pathology revealed a 2 cm invasive ductal carcinoma with DCIS. Margins were negative after revision performed at the primary procedure. Two of 4 sentinel nodes were positive for metastatic disease, (T1c N1a (sn) (AJCC stage 8th addition)). I recommended oncology evaluation to decide on adjuvant treatment and radiation therapy. She will return in 1 month for wound examination, sooner p.r.n.. A copy of the pathology report was provided to the patient. Orders: Referrals 2 Hematology & Oncology Referral C50.912 - Malignant neoplasm of unspecified site of left female breast, D05.12 - Intraductal carcinoma in situ of left breast Coding Level of Care Code Global (64997) Diagnoses Invasive ductal carcinoma of left breast C50.912 Ductal carcinoma in situ of left breast D05.12
[2024-12-14 10:30] VITALS: BP 125/74; PULSE 81; BMI 28.7
--- OUTSIDE RECORDS SUMMARY | 2024-12-14 11:10 | XMS_ITS | Clinical Summary ---
Author Organization [employer] Address [address] [place] [address] Care Team Providers Care Stripe Matcher Name Role Phone Kimberli Patel MD Primary Care Provider [phone] Allergies Active Allergy Reactions Criticality Noted Date [...] Type Department Care Team Description 11/22/2024 Telephone [facility] [address] [place] [address] Kimberli Patel MD MRI BREAST ORDER 11/21/[address] [phone] Kimberli Patel MD 11/08/2024 Orders Only [facility] External Provider, [facility] 10/17/2024 Telephone [facility] [address] [phone] Melissa Mejia, RN Results 10/17/2024 Telephone [facility] [address] [place], [place] [phone] Kimberli Patel MD 09/27/2024 1:00 PM EST Office Visit [facility] [address] [place] [address] Kimberli Patel MD Mass of lower outer quadrant of left breast (Primary Dx) 09/27/2024 Travel 09/26/2024 Telephone [facility] [address] [place] [address] Kimberli Patel MD Nurse Triage [...] Prophylaxis 09/19/2023 03/18/2023 Depression Screening 01/04/2024 01/04/2023, 01/04/2023 SDOH Screening 01/04/2024 01/04/2023 Pap Smear 01/14/2024 01/13/2021 Dental X-Ray: Bitewings 03/05/2024 03/04/20 23, 01/21/2023 COVID-19 Vaccine (1 - 2023-2 5 season) 2024 Influenza Vaccine (#1) 2024 Tobacco Screening 03/27/2025 03/27/2024 Cervical Cancer Screening 01/13/2026 HPV/Cotest 01/13/2026 01/13/2021, 01/31/2018 Dental X-Ray: Full Mouth 03/05/2026 03/04/2023 DTaP/Tdap/Td Vaccines (3 - T d or Tdap) 04/13/2029 04/13/2019, 07/01/2017 Zoster Vaccines [...] 5 Years) and At-Risk Patients (6 to 49) Years) Aged Out No longer eligible b ased on patient's age to complete this topic RSV under 20 months Aged Out No longe r eligible based on patient's age to complete this topic Rotavirus Vaccines Aged Out No longer eligible based on patient's age to complete this topic Procedures Procedure Name Priority Date/Time Associated Diagnosis Comments BI MM SURGICAL SPECIMEN Routine 12/03/2024 11:18 AM EST HEMATOXYLIN AND EOSIN STAIN Routine 12/03/2024 10:48 AM EST NM SENTINEL NODE W IMAGING Routine 12/03/2024 7:46 AM EST HCG, QL, URINE Routine 12/03/2024 7:11 AM EST BI MAMMOGRAM DIAGNOSTIC TOMOSYNTHESIS LEFT Routine 11/29/2024 [...] Relevant to Health Maintenance Results * BI MM SURGICAL SPECIMEN (12/03/2024 11:18 AM EST) Anatomical Region Laterality Modality Breast Bilateral Mammography 12/03/2024 11:1 8 AM EST Narrative 12/03/2024 3:12 PM EST ? [facility] ?[address] ?[place] [address] ? Mammography Report ? Signed ? Patient: Jackson,Yeny V ?MR#: [id number] ?? [id number] ? : 1985 ?Acct:[id number] ? Age/Sex: 39 / F ?ADM Date: 12/03/ ? Loc: HO.SSS ? Attending Dr: Mariusz Lassiter MD ? Ordering Physician: Mariusz Lassiter MD ?Results: ? Date of Service: 12/03/ ?Follow Up: ? Procedure(s): MM surgical specimen ?? Accession Number(s): [id number] ? cc: Mariusz Lassiter MD; Kimberli Patel MD ? Left axillary specimen radiograph demonstrates the butterfly clip and ?? the tag within the specimen. ? Left breast specimen radiograph demonstrates the coil clip and the tag ?? within the specimen. ? Electronically signed by: ??Dulce Richardson DO ??12/03/2024 03:09 PM EST ?? RP ? Dictated By: ?Dulce Richardson DO ? Signed By: ?<Electronically signed by Dulce Richardson, DO in OV> ? //25 1509 ? DD/ 1118 ? TD/TT: 12/03/24 1450 ? Composite Bond Worker: ? Procedure Note Donotuseinterpreter, Image - 12/03/2024 [place] [address] Mammography Report Signed Patient: Yeny Jackson VMR#: [id number] : 1985Acct:[id number] Age/Sex: 39 / FADM Date: 12/03/24 Loc: .[facility] Attending Dr: Mariusz Lassiter MD Ordering Physician: Mariusz Lassiteresults: Date of Service: 12/03/24Follow Up: Procedure(s): MM surgical specimen Accession Number(s): [id number] cc: Mariusz Lassiter MD; Kimberli Patel MD Left axillary specimen radiograph demonstrates the butterfly clip and the tag within the specimen. Left breast specimen radiograph demonstrates the coil clip and the tag within the specimen. Electronically signed by: Dulce Richardson DO 12/03/2024 03:09 PM EST Dictated By: Dulce Richardson DO Signed By: <Electronically signed by Dulce Richardson DO in OV> 12/03/24 1509 DD/ 1118 TD/TT: 12/03/24 1450 Composite Bond Worker: [facility] External Provider IMG BI PROCEDURES Final Result * Hematoxylin and Eosin Stain (12/03/2024 10:48 AM EST) Only the most recent of2 resultswithin the time period is included. 12/03/2024 10:4 8 AM EST 12/03/2024 10:57 AM EST Narrative [facility] - 12/06/2024 3:10 PM EST ----- ------- Name: Yeny Jackson V ?Age/Sex: 39/F ? : 1985 Unit#: [id number] ?? Attend Dr: Mariusz Lassiter MD ?Re12/03/24 ?Status: DEP SDC ? Location: HO.SSS ?Disch: ? ----- ------- SPEC : [id number] ?RECD: 12/03/24-1056 ? STATUS: ??SOUT ? REQ NUM: [id number] ? ARNAUD: 12/03/24-1047 ? SUBM DR: Mariusz Lassiter MD ? ENTERED: ??12/03/24-1058 ?SP TYPE: Surgical ? OTHR DR: Kimberli Patel MD ? ORDERED: ??HE Stain/6, Gross Micro L4, Gross Micro L5/7, Cytokeratin/6, IOC, IHC/3 ? COMMENTS: Cassettes A1-A10 are placed in formalin at 11:32. ?Cassettes B1-B9 are placed in formalin at 12:05. ?Cassettes E1-E5 are placed in formalin at 11:50 ? Diagnosis ?? A. 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 within microns of inferior ??and posterior margins. ?- Ductal carcinoma in-situ, nuclear grade 2; negative margins (greater than 2 mm to ?? all margins). ?- Biopsy site changes. ?- pT1c N1a(sn) (AJCC Stage 8th ed.) ? B. ??Breast, left posterior margin, excision: ??Benign breast tissue; negative for ?? carcinoma. ? C. ??Lymph node, sentinel #1, excision: ??Metastatic carcinoma present in one lymph node ?? examined. ? D. ??Lymph node, sentinel #2, excision: ??One lymph node negative for metastatic carcinoma. ? E. ??Lymph node, tag left axilla, excision: ??Metastatic carcinoma present in one lymph ?? node examined. ? F. ??Lymph node, sentinel #3, excision: ??One lymph node negative for metastatic carcinoma. ? G. ??Breast, left anterior margin, excision: ??Benign breast tissue; negative for ?? carcinoma. ? H. ??Breast, left inferior margin, excision: ??Benign breast tissue; negative for ?? carcinoma. ? Synoptic Data - Invasive Breast Cancer ? Procedure: ? Lumpectomy, margin revisions and axillary lymph nodes ?? Laterality: ? Left ?? Tumor size: ? 2.0 cm ?? Tumor focality: ?Unifocal ?? Extent of tumor ? Skin: ? No skin present ? Nipple: ? Nipple not present ? Skeletal muscle: ?No skeletal muscle present ?? DCIS: ? Present ? Nuclear grade: ?2 ? CONTINUED ON NEXT PAGE ----- ------- Name: Yeny Jackson V ?Age/Sex: 39/F ? : 1985 Unit#: [id number] ?? Attend Dr: Mariusz Lassiter MD ?Re12/03/24 ?Status: DEP SDC ? Location: HO.SSS ?Disch: ? ----- ------- SPEC : [id number] ?RECD: 12/03/24 ? STATUS: ??SOUT ? REQ NUM: [id number] ? ARNAUD: 12/03/24 ? SUBM DR: Mariusz Lassiter MD ? ENTERED: ??12/03/24 ?SP TYPE: Surgical ? OTHR DR: Kimberli Patel MD ? ORDERED: ??HE Stain/6, Gross Micro L4, Gross Micro L5/7, Cytokeratin/6, IOC, IHC/3 ? COMMENTS: Cassettes A1-A10 are placed in formalin at 11:32. ?Cassettes B1-B9 are placed in formalin at 12:05. ?Cassettes E1-E5 are placed in formalin at 11:50 ? Diagnosis ?(Continued) ? Extent/EIC positive/negative: ?? EIC negative ?? LCIS: ? Not identified ?? Type of invasive carcinoma: ?Ductal ?? Histologic grade (MSBR): ?2 ? Tubule formation score: ?2 ?Nuclear pleomorphism score: ?? 2 ? Mitotic rate score: ?2 ?? LVI: ? Not identified ?? Margin, inv tumor: ?Negative ? Closest margin ?Greater than 5 mm to all margins after revisions ?? Margin, DCIS: ? Negative ? Closest margin ?Greater than 5 mm to all margins after revisions ?? Lymph nodes ? Number examined: ?4 ? [place] nodes: ?3 ? Axillary nodes: ?1 ? Number involved: ? With macrometastases: ?2 ? With micrometastases: ?0 ? With isolated tumor cells: ?0 ? Extranodal extension: ?Present ? Size of largest met. deposit: ?? 2.0 cm ?? Treatment effect ? Breast: ? Not identified ? Lymph nodes: ?Not identified ?? TNM: ? pT1c N1a(sn) ?? Ancillary studies: ?ER positive, VT positive, HER2 negative, low proliferation (see ?? S25-12). 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 ??Microscopic sections reviewed. ? CONTINUED ON NEXT PAGE ----- ------- Name: Yeny Jackson V ?Age/Sex: 39/F ? : 1985 Unit#: [id number] ?? Attend Dr: Mariusz Lassiter MD ?Re12/03/24 ?Status: DEP SDC ? Location: HO.SSS ?Disch: ? ----- ------- SPEC : [id number] ?RECD: 12/03/24 ? STATUS: ??SOUT ? REQ NUM: [id number] ? ARNAUD: 12/03/24-1047 ? SUBM DR: Mariusz Lassiter MD ? ENTERED: ??12/03/24 ?SP TYPE: Surgical ? OTHR DR: Kimberli Ptael MD ? ORDERED: ??HE Stain/6, Gross Micro L4, Gross Micro L5/7, Cytokeratin/6, IOC, IHC/3 ? COMMENTS: Cassettes A1-A10 are placed in formalin at 11:32. ?Cassettes B1-B9 are placed in formalin at 12:05. ?Cassettes E1-E5 are placed in formalin at 11:50 ? Material Received ?? A. Left breast lumpectomy ?? B. Posterior margin ?? C. [place] lymph node #1 (4,500) ?? D. [place] lymph node #2 (3,800) ?? E. Tag lymph node (Sent fresh) ?? F. [place] lymph node #3 (1,125) ?? G. Anterior margin ?? H. Inferior margin ? Gross Description Received in eight parts. Part A: ??Received fresh, for intraoperative consultation, labeled ?left breast lumpectomy? is a 8.0 (medial-lateral) x 5.0 (superior-inferior) x 3.0 (anterior-posterior) cm portion of focally firm and nodular mina-white and hollins-yellow lobular fibrofatty breast tissue. ??As stated on the specimen container and specimen requisition slip a short stitch denotes the superior margin, a long stitch denotes the lateral margin and while not stated on either the requisition or container, a loop stitch is present on the posterior-deep margin. ??The margins are inked as follows: ??superior-blue, inferior-green, anterior-black, posterior-red, lateral-yellow and medial-orange. ??The specimen is serially sectioned to reveal predominantly homogeneous, dense, rubbery and firm mina-white fibrous breast tissue with a lesser amount of hollins-yellow lobular fat. ??The breast tissue towards the central-medial aspect, inferiorly is remarkable for a dense, rubbery, firm and focally indurated mina-pink tumor measuring 2.0 (superior-inferior) x 1.8 (lateral-medial) x 2.0 (anterior-posterior) cm. ??The tumor is remarkable for an open coil biopsy clip and the Hologic LOCalizer RFID tag is identified. ??The tumor closely approaches the anterior, posterior and inferior margins of resection, however, is covered by a membrane of fibrofatty breast tissue. ??No other cysts, lesions or nodules are identified. ??Sections perpendicular to the margins of resection as previously are submitted in A1-A10 as follows: A1 lateral margin; A2 inferior-posterior; A3 posterior; A4 anterior-inferior; A5 posterior-inferior; A6 inferior; A7 anterior-inferior; A8 anterior; ? CONTINUED ON NEXT PAGE ----- ------- Name: JacksonYeny V ?Age/Sex: 39/F ? : 1985 Unit#: [id number] ?? Attend Dr: Mariusz Lassiter MD ?Re12/03/24 ?Status: DEP SDC ? Location: HO.SSS ?Disch: ? ----- ------- SPEC : [id number] ?RECD: 12/03/24-1056 ? STATUS: ??SOUT ? REQ NUM: [id number] ? ARNAUD: 12/03/24-1047 ? SUBM DR: Mariusz Lassiter MD ? ENTERED: ??12/03/24-1058 ?SP TYPE: Surgical ? OTHR DR: Kimberli Patel MD ? ORDERED: ??HE Stain/6, Gross Micro L4, Gross Micro L5/7, Cytokeratin/6, IOC, IHC/3 ? COMMENTS: Cassettes A1-A10 are placed in formalin at 11:32. ?Cassettes B1-B9 are placed in formalin at 12:05. ?Cassettes E1-E5 are placed in formalin at 11:50 ? Gross Description ?(Continued) A9 superior; A10 medial. Cassettes A2-A7 contain tumor with adjacent margins from slices 4-6. The intraoperative diagnosis is reported to Dr. Lassiter as ?tumor closely approaching the anterior, inferior and posterior margins by Dr. Irving. Part B: ??Received fresh labeled ?posterior margin? is a 4.2 (medial-lateral) x 0.9-3.0 (superior-inferior) cm flap of mina-white and yellow-red lobular fibrofatty breast tissue ranging from 0.5 to 0.8 cm in thickness from the concave prior biopsy side to the convex new posterior margin. ??The concave surface is hemorrhagic yellow, red-maroon consistent with prior biopsy side and the opposing convex surface is shaggy, cauterized, red- maroon with the attached stitch denoting posterior margin. ??The posterior margin is marked with red ink, the superior edge is marked with blue ink and the inferior edge is marked with green ink. Sectioning reveals predominantly homogeneous hollins-yellow lobular fat with a lesser amount dense, rubbery, mina-white fibrous breast tissue, superiorly. ??There is no gross evidence of residual tumor. ??The specimen is entirely submitted in cassettes B1-B9 from lateral to medial, respectively Part C: ??Received in formalin labeled ?sentinel lymph node #1, count 4500 is a 2.7 x 2.5 x 0.3-0.5 cm focally congested, firm and nodular portion of adipose tissue, sectioned to reveal a 2.7 x 1.0 x 0.6 cm mina-pink lymph node, entirely submitted in cassettes C1-C3. Part D: ??Received in formalin labeled ?sentinel lymph node #2, count 3800 is a 1.8 cm in greatest dimension mina-lymph node with attached adipose tissue, sectioned to reveal homogeneous mina-pink cut surfaces. ??The lymph node is entirely submitted in cassette D1. Part E: ??Received fresh labeled ?tag lymph node? is a 2.0 cm in greatest dimension rubbery, firm, mina lymph node with attached adipose tissue and an adjacent 0.9 cm Hologic LOCalizer RFID tag. ??Sectioning reveals homogeneous, dense, rubbery, mina, white-cut surfaces, consistent with metastatic tumor. ??There is a 0.45 cm clefted-cystic focus containing an open coil biopsy clip and mina-pink mucoid gelatinous material along the edge of the lymph node. ??The lymph node is entirely submitted in E1-E5. Part F: ??Received in formalin labeled ?sentinel lymph node #3, count 1125 is a 2.0 cm in greatest dimension cauterized portion of adipose tissue, sectioned to reveal a 1.8 cm in greatest dimension mina-pink lymph node with homogeneous mina-pink cut surfaces, entirely submitted in cassette F1. ? CONTINUED ON NEXT PAGE ----- ------- Name: Yeny Jackson V ?Age/Sex: 39/F ? : 1985 Unit#: [id number] ?? Attend Dr: Mariusz Lassiter MD ?Re12/03/24 ?Status: DEP [facility] ? Location: .[facility] ?Disch: ? ----- ------- SPEC : [id number] ?RECD: 12/03/24 ? STATUS: ??SOUT ? REQ NUM: [id number] ? ARNAUD: 12/03/24 ? SUBM DR: Mariusz Lassiter MD ? ENTERED: ??12/03/24 ?SP TYPE: Surgical ? OTHR DR: Kimberli Patel MD ? ORDERED: ??HE Stain/6, Gross Micro L4, Gross Micro L5/7, Cytokeratin/6, IOC, IHC/3 ? COMMENTS: Cassettes A1-A10 are placed in formalin at 11:32. ?Cassettes B1-B9 are placed in formalin at 12:05. ?Cassettes E1-E5 are placed in formalin at 11:50 ? Gross Description ?(Continued) Part G: ??Received in formalin labeled ?anterior margin? is a 4.5 (superior-inferior) x 3.0 (medial-lateral) x 0.5-1.0 (prior biopsy side-new anterior margin) concave and convex flap of fibrofatty breast tissue. ??As stated on the specimen container a short stitch denotes the superior margin, a long stitch denotes the lateral margin and a loop stitch denotes the superficial-new anterior margin. ??The concave side, consistent with prior biopsy is focally hemorrhagic, hollins-yellow and yellow-red. ??The superficial-new anterior, convex margin is marked with black ink. ??The specimen is partially fragmented in the center of the specimen. Sectioning reveals predominantly homogeneous hollins-yellow lobular fat with scant mina-white fibrous breast tissue towards the medial anterior aspect. ??There is no gross evidence of residual tumor. ??The specimen is entirely submitted in cassettes G1-G8, from superior to inferior, respectively. Part H: ??Received in formalin labeled ?inferior margin? is a 6.7 (medial-lateral) x 4.0 (anterior-posterior) x 0.5-1.0 (prior biopsy side-convex new inferior margin with the attached loop stitch) cm flap of fibrofatty breast tissue. ??As stated on the specimen container and specimen requisition slip a short stitch denotes the posterior margin, a long stitch denotes the lateral margin and a loop stitch denotes the inferior margin which is cauterized, variegated and marked with green ink. ??The prior biopsy side is focally granular, mina-white and mina-pink. ??The specimen is serially sectioned to reveal predominantly homogeneous hollins-yellow lobular fat with scant streaks of mina- white fibrous breast tissue. ??There is no gross evidence of residual tumor identified. ??The specimen is entirely submitted in cassettes H1-H13, from lateral to medial, respectively. ??CEDS This case was reviewed intradepartmentally. Special studies ordered and performed: pancytokeratin immunostains on C, D and F Copies To: ?? Mariusz Lassiter MD ?? [facility] ?? [address] ?? [place] [address] ?? [phone] ?? Kimberli Patel MD ?? [address] ?? [place] [address] ?? [phone] ? CONTINUED ON NEXT PAGE ----- ------- Name: Vikram Jacksonservando Sosa ?Age/Sex: 39/F ? : 1985 Unit#: [id number] ?? Attend Dr: Mariusz Lassiter MD ?Re12/03/24 ?Status: DEP SDC ? Location: HO.SSS ?Disch: ? ----- ------- SPEC : [id number] ?RECD: 12/03/24 ? STATUS: ??SOUT ? REQ NUM: [id number] ? ARNAUD: 12/03/24-1047 ? SUBM DR: Mariusz Lassiter MD ? ENTERED: ??12/03/24 ?SP TYPE: Surgical ? OTHR DR: Kimberli Patel MD ? ORDERED: ??HE Stain/6, Gross Micro L4, Gross Micro L5/7, Cytokeratin/6, IOC, IHC/3 ? COMMENTS: Cassettes A1-A10 are placed in formalin at 11:32. ?Cassettes B1-B9 are placed in formalin at 12:05. ?Cassettes E1-E5 are placed in formalin at 11:50 ----- ------- Signed (signature on file) Kerwin Funk MD 12/06/24 1510 ? ----- ------- ? END OF REPORT ? us Generic External Data Provider LAB BLOOD ORDERAB LES Final Result [facility] [address] [place] [address] [phone] * NM SENTINEL NODE W IMAGING (12/03/2024 7:46 AM EST) Anatomical Region Laterality Modality Nuclear Medicine 12/03/2024 7:46 AM EST Narrative 12/03/2024 1:23 PM EST ? [facility] ?[address] ?[place] [address] ?Nuclear Medicine Report ? Signed ? Patient: Jackson,Yeny V ?MR#: [id number] ?? [id number] ? : 1985 ?Acct:[id number] ? Age/Sex: 39 / F ?ADM Date: 12/03/24 ? Loc: HO.SSS ? Attending Dr: Mariusz Lassiter MD ? Ordering Physician: Mariusz Lassiter MD ?? Date of Service: 12/03/24 ?? Procedure(s): NM sentinel node w imaging ?? Accession Number(s): [id number] ? cc: Mariusz Lassiter MD; Kimberli Patel MD ? EXAMINATION: Nuclear medicine sentinel node imaging. ? CLINICAL INDICATION: Left breast intraductal carcinoma. ? COMPARISON: Mammogram 11/29/2024. ? TECHNIQUE: Central lower procedure, benefits in risk were explained by ?? Dr. Dunaway and informed consent obtained. 4% and lidocaine cream was ?? applied are on the breast at 30 minutes. The area was then cleaned and ?? draped in usual sterile manner. 0.5 mCi of 99m Tc lymphoseek divided in ?? 4 equal doses was injected in 4 quadrants around the left breast areola ?? and imaging was obtained approximately 20-30 minutes later. ? FINDINGS/ ? NM/NM sentinel node w imaging ?? IMPRESSION: There is focal activity seen in 4 quadrants around the left ?? breast following injection. There are 2 sentinel nodes seen in the left ?? anterior axilla. ? Electronically signed by: ??Gurpreet Sumner MD ??12/03/2024 01:20 PM EST RP ? Dictated By: ?Taisha,Gurpreet S MD ? Signed By: ?<Electronically signed by Gurpreet S Taisha, MD in OV> ?12/03/24 1320 ? DD/ 0746 ? TD/TT: 12/03/24 0915 ? Composite Bond Worker: MSM ? Procedure Note Rosa Luu - 12/03/[address] [address] Nuclear Medicine Report Signed Patient: Yeny Jackson R#: [id number] : 1985Acct:[id number] Age/Sex: 39 / FADM Date: 12/03/24 Loc: HO.SSS Attending Dr: Mariusz Lassiter MD Ordering Physician: Mariusz Lassiter MD Date of Service: 12/03/24 Procedure(s): NM sentinel node w imaging Accession Number(s): [id number] cc: Mariusz Lassiter MD; Kimberli Patel MD EXAMINATION: Nuclear medicine sentinel node imaging. CLINICAL INDICATION: Left breast intraductal carcinoma. COMPARISON: Mammogram 11/29/2024. TECHNIQUE: Central lower procedure, benefits in risk were explained by Dr. Dunaway and informed consent obtained. 4% and lidocaine cream was applied are on the breast at 30 minutes. The area was then cleaned and draped in usual sterile manner. 0.5 mCi of 99m Tc lymphoseek divided in 4 equal doses was injected in 4 quadrants around the left breast areola and imaging was obtained approximately 20-30 minutes later. FINDINGS/ NM/NM sentinel node w imaging IMPRESSION: There is focal activity seen in 4 quadrants around the left breast following injection. There are 2 sentinel nodes seen in the left anterior axilla. Electronically signed by: Gurpreet Sumner MD 12/03/2024 01:20 PM EST Dictated By: Gurpreet Sumner MD Signed By: <Electronically signed by Gurpreet Sumner MD in OV> 12/03/24 1320 DD/ 0746 TD/TT: 12/03/24 0915 Composite Bond Worker: ELLA [facility] External Provider IMG NM PROCEDURES Final Result * HCG, Qualitative, Urine (12/03/2024 7:11 AM EST) Urine NEGATIVE NEGATIVE [facility] Comment:This test was develo ped to detect early . Falsenegative results may occur after the 5th - 7th week ofpregnancy when using this test method. If clinicallyindicated, consider a serum hCG. 12/03/2024 7:11 AM EST 12/03/2024 7:57 AM EST us Generic External Data Provider LAB URINE ORDERAB LES Final Result [facility] [address] [place] [address] [phone] * BI Mammogram Diagnostic Tomosynthesis Left (11/29/2024 9:58 AM EST) Only the most recent of2 resultswithin the time period is included. Anatomical Region Laterality Modality Breast Left Mammography 11/29/2024 9:58 AM EST Narrative 11/30/2024 12:43 PM EST ? [facility] ? [address] ?[place] [address] ? Mammography Report ? Signed ? Patient: Jackson,Yeny V ?MR#: [id number] ?? [id number] ? : 1985 ?Acct:[id number] ? Age/Sex: 39 / F ?ADM Date: 11/29/24 ? Loc: HO.MAMMO ? Attending Dr: Mariusz Lassiter MD ? Ordering Physician: Mariusz Lassiter MD ?Results: 1Nega ?? tive ? Date of Service: 11/29/24 ?Follow Up: 1 Year From Orig ?? inal Mammogram ? Procedure(s): MM tomosynthesis diagnostic LT ?? Accession Number(s): [id number] ? cc: Mariusz Lassiter MD; Kimberli Patel [...] DD/ 0958 ? TD/TT: 11/29/24 1018 ? Composite Bond Worker: ? Procedure Note Donotuseinterpreter, Image - 11/30/2024 [facility] [address] [place] [address] [address] [place], [place] [address] Mammography Report Signed Patient: Yeny Jackson VMR#: [id number] : 1985Acct:[id number] Age/Sex: 39 / FADM Date: 11/29/24 Loc: HO.MAMMO Attending Dr: Mariusz Lassiter MD Ordering Physician: Mairusz Lassiteresults: 1Nega tive Date of Service: 11/29/24Follow Up: 1 Year From Orig inal Mammogram Procedure(s): MM tomosynthesis diagnostic LT Accession Number(s): [id number] cc: Mariusz Lassiter MD; Kimberli Patel MD [...] Dulce Richardson DO 11/30/2024 12:40 PM EST RP Dictated By: Dulce Richardson DO Signed By: <Electronically signed by Dulce Richardson DO in OV> 11/30/24 1240 DD/ 0958 TD/TT: 11/29/24 1018 Composite Bond Worker: [facility] External Provider IMG BI PROCEDURES Final Result * BREAST NDL CORE BIO EA ADD (11/08/2024 10:00 AM EST) Anatomical Region Laterality Modality Abdomen Ultrasound 11/08/2024 10:0 0 AM EST Narrative 11/08/2024 1:04 PM EST ? [facility] ? [address] ?[place] [address] ? Ultrasound Report ? Signed with Addenda ? Patient: Yeny Jackson V ?MR#: [id number] ?? [id number] ? : 1985 ?Acct:[id number] ? Age/Sex: 39 / F ?ADM Date: 11/08/24 ? Loc: HO.MAMMO ? Attending Dr: Mariusz Lassiter MD ? Ordering Physician: Mariusz Lassiter MD ?? Date of Service: 11/08/24 ?? Procedure(s): US breast ndl core bio ea add ?? Accession Number(s): [id number] ? cc: Mariusz Lassiter MD; Kimberli Patel [...] ??11/08/2024 01:01 PM EST ?? RP Workstation: Vertigo ? US/US breast ndl core bio ea add ?? IMPRESSION: ?? 1. Status post ultrasound-guided core biopsy left breast and left ?? axilla. ?? 2. Pathology pending. ??An addendum report will be issued. ? Electronically signed by: ??Dulce Richardson DO ??11/08/2024 01:01 PM EST ?? RP ? Dictated By: ?Dulce Richardson DO ? Signed By: ?<Electronically signed by Dulce Tyminski, DO in OV> ? 11/19/24 1342 ? DD/ 1000 ? TD/TT: 11/08/24 1115 ? Composite Bond Worker: ? Procedure Note Bell, Image - 12/02/2024 [facility] [address] [place] [address] Dr. [place]Lght, [place] [address] Ultrasound Report Signed with Addenda Patient: Yeny Jackson VMR#: [id number] : 1985Acct:[id number] Age/Sex: 39 / FADM Date: 11/08/24 Loc: HO.MAMMO Attending Dr: Mariusz Lassiter MD Ordering Physician: Mariusz Lassiter MD Date of Service: 11/08/24 Procedure(s): breast ndl core bio ea add Accession Number(s): [id number] cc: Mariusz Lassiter MD; Kimberli Patel MD [...] axillary abnormal lymph node. Electronically signed by: Ducle Richardson DO 11/19/2024 01:42 PM EST RP [...] 11/19/24 1342 DD/ 1000 TD/TT: 11/08/24 1115 Composite Bond Worker: [facility] External Provider IMG US PROCEDURES Edited Result - Final * BI US Breast Limited Right (11/08/2024 10:00 AM EST) Anatomical Region Laterality Modality Breast Right Ultrasound 11/08/2024 10:0 0 AM EST Narrative 11/08/2024 12:15 PM EST ? [facility] ? [address] ?[place] [address] ? Ultrasound Report ? Signed ? Patient: Jackson,Yney V ?MR#: [id number] ?? [id number] ? : 1985 ?Acct:[id number] ? Age/Sex: 39 / F ?ADM Date: 11/08/25 ? Loc: HO.MAMMO ? Attending Dr: Mariusz Lassiter MD ? Ordering Physician: Mariusz Lassiter MD ?? Date of Service: 11/08/24 ?? Procedure(s): US breast RT limited mamm only ?? Accession Number(s): [id number] ? cc: Mariusz Lassiter MD; Kimberli Patel [...] signed by Dulce Richardson, in OV> ? 11/08/242 ? DD/ 1000 ? TD/TT: 11/08/24 1115 ? Composite Bond Worker: ? Procedure Note Donotmicaelainterpreter, Image - [facility]/20/[facility] [address] [place] [address] Ultrasound Report Signed Patient: Yeny Jackson VMR#: [id number] : 1985Acct:[id number] Age/Sex: 39 / FADM Date: 11/08/24 Loc: [facility] Attending Dr: Mariusz Lassiter MD Ordering Physician: Mariusz Lassiter MD Date of Service: 11/08/24 Procedure(s): US breast RT limited mamm only Accession Number(s): [id number] cc: Mariusz Lassiter MD; Kimberli Patel MD [...] Dulce Richardson DO 11/08/2024 12:12 PM EST Dictated By: Dulce Richardson DO Signed By: <Electronically signed by Dulce Richardson DO in OV> 11/08/24 1212 DD/ 1000 TD/TT: 11/08/24 1115 Composite Bond Worker: [facility] External Provider IMG US PROCEDURES Edited Result - Final * BI MR Guided Breast Biopsy Left (11/08/2024 10:00 AM EST) Anatomical Region Laterality Modality Breast Left Magnetic Resonan ce 11/08/2024 10:0 0 AM EST Narrative 11/08/2024 1:04 PM EST ? [facility] ? [address] [facility] ?[place] [address] ? Ultrasound Report ? Signed with Addenda ? Patient: Jackson,Yeny V ?MR#: [id number] ?? [id number] ? : 1985 ?Acct:[id number] ? Age/Sex: 39 / F ?ADM Date: 11/08/ ? Loc: HO.MAMMO ? Attending Dr: Mariusz Lassiter MD ? Ordering Physician: Mariusz Lassiter MD ?? Date of Service: 11/08/24 ?? Procedure(s): US breast ndl core biopsy LT ?? Accession Number(s): [id number] ? cc: Mariusz Lassiter MD; Kimberli Patel [...] ??11/08/2024 01:01 PM EST ?? RP ? US/US breast ndl core biopsy LT [...] DD/ 1000 ? TD/TT: 11/08/24 1115 ? Composite Bond Worker: ? Procedure Note Bell, Rosa - 12/02/2024 [facility] [address] [place] [address] Dr. [place], [place] [address] Ultrasound Report Signed with Addenda Patient: Yeny Jackson VMR#: [id number] : 1985Acct:[id number] Age/Sex: 39 / FADM Date: 11/08/24 Loc: [facility] Attending Dr: Mariusz Lassiter MD Ordering Physician: Mariusz Lassiter MD Date of Service: 11/08/24 Procedure(s): US breast ndl core biopsy LT Accession Number(s): [id number] cc: Mariusz Lassiter MD; Kimberli Patel MD [...] 11/19/24 1342 DD/ 1000 TD/TT: 11/08/24 1115 Composite Bond Worker: [facility] External Provider IMG MRI PROCEDURES Edited Result - Final * BI MR Breast w and w/o Contrast Bilateral (11/02/2024 3:19 PM EST) Anatomical Region Laterality Modality Breast Bilateral Magnetic Resonan ce 11/02/2024 3:19 PM EST Narrative 11/08/2024 12:17 PM EST ? [facility] ?[address] ?[place] [address] ? Magnetic Resonance Report ? Signed ? Patient: Jackson,Yeny V ?MR#: [id number] ?? [id number] ? : 1985 ?Acct:[id number] ? Age/Sex: 39 / F ?ADM Date: 11/02/24 ? Loc: HO.MRI ? Attending Dr: Kimberli Patel MD ? Ordering Physician: Kimberli Patel MD ?? Date of Service: 11/02/24 ?? Procedure(s): MR breast BI wo/w con ?? Accession Number(s): [id number] ? cc: Kimberli Patel MD ? EXAMINATION: [...] DD/ 1519 ? TD/TT: 11/02/24 1645 ? Composite Bond Worker: ? Procedure Note Rosa Luu - 11/08/[address] [address] Magnetic Resonance Report Signed Patient: Yeny Jackson R#: [id number] : 1985Acct:[id number] Age/Sex: 39 / FADM Date: 11/02/24 Loc: HO.MRI Attending Dr: Kimberli Patel MD Ordering Physician: Kimberli Patel MD Date of Service: 11/02/24 Procedure(s): MR breast BI wo/w con Accession Number(s): [id number] cc: Kimberli Patel MD EXAMINATION: MR BREAST [...] 11/08/24 1214 DD/ 1519 TD/TT: 11/02/24 1645 Composite Bond Worker: Kimberli Patel MD IMG MRI PROCEDURES Edited Res ult - Final * BI US Breast Limited Left (10/16/2024 10:30 AM EST) Anatomical Region Laterality Modality Breast Left Ultrasound 10/16/2024 10:3 0 AM EST Narrative 10/16/2024 11:31 AM EST ? [facility] ? [address] [facility] ?[place] [address] ? Ultrasound Report ? Signed ? Patient: Jackson,Yeny V ?MR#: [id number] ?? [id number] ? : 1985 ?Acct:[id number] ? Age/Sex: 39 / F ?ADM Date: 10/16/24 ? Loc: HO.MAMMO ? Attending Dr: Kimberli Patel MD ? Ordering Physician: Kimberli Patel MD ?? Date of Service: 10/16/24 ?? Procedure(s): US breast LT limited mamm only ?? Accession Number(s): [id number] ? cc: Kimberli Patel MD ? EXAMINATION: [...] DD/ 1030 ? TD/TT: 10/16/24 1110 ? Composite Bond Worker: ? Procedure Note Donotuseinterpreter, Image - 10/16/2024 [facility] [address] [place] [address] Ultrasound Report Signed Patient: Yeny Jackson VMR#: [id number] : 1985Acct:[id number] Age/Sex: 39 / FADM Date: 10/16/24 Loc: HO.MAMMO Attending Dr: Kimberli Patel MD Ordering Physician: Kimberli Patel MD Date of Service: 10/16/24 Procedure(s): US breast LT limited mamm only Accession Number(s): [id number] cc: Kimberli Patel MD EXAMINATION: MM DIAGNOSTIC [...] 10/16/24 1127 DD/ 1030 TD/TT: 10/16/24 1110 Composite Bond Worker: us Kimberli Patel MD IMG US PROCEDURES Final Resul t * BI Mammogram Diagnostic Tomosynthesis Bilateral (10/16/2024 10:00 AM EST) Anatomical Region Laterality Modality Breast Bilateral Mammography 10/16/2024 10:0 0 AM EST Narrative 10/16/2024 11:31 AM EST ? [facility] ? [address] ?[place] [address] ? Mammography Report ? Signed ? Patient: Jackson,Yeny V ?MR#: [id number] ?? [id number] ? : 1985 ?Acct:[id number] ? Age/Sex: 39 / F ?ADM Date: 12/10/24 ? Loc: HO.MAMMO ? Attending Dr: Kimberli Patel MD ? Ordering Physician: Kimberli Patel MD ?Results: 4Susp ?? icious Finding ? Date of Service: 10/16/24 ?Follow Up: Biopsy Recommend ?? ed ? Procedure(s): MM tomosynthesis diagnostic BI ?? Accession Number(s): [id number] ? cc: Kimberli Patel MD ? EXAMINATION: [...] by Dulce Richardson, DO in OV> ? 12/10/24 1127 ? DD/ 1000 ? TD/TT: 10/16/24 1110 ? Composite Bond Worker: ? Procedure Note Bell, Image - 10/16/2024 [place] [facility] [address] [place] [address] Mammography Report Signed Patient: Yeny Jackson R#: [id number] : 1985Acct:[id number] Age/Sex: 39 / FADM Date: 10/16/24 Loc: HO.MAMMO Attending Dr: Kimberli Patel MD Ordering Physician: Kimberli Patelesults: 4Susp icious Finding Date of Service: 10/16/24Follow Up: Biopsy Recommend ed Procedure(s): MM tomosynthesis diagnostic BI Accession Number(s): [id number] cc: Kimberli Patel MD EXAMINATION: MM DIAGNOSTIC [...] 10/16/24 1127 DD/ 1000 TD/TT: 10/16/24 1110 Composite Bond Worker: us Kimberli Patel MD IMG BI PROCEDURES Final Resul t * THINPREP PAP AND HPV mRNA E6/E7 (01/13/2021 1:37 PM EST) Clinical Information: None given [facility] COMMENT SEE COMMENT [facility]OUNDAT[facility] ON [...] historic and ?? current clinical information. ?? Lubricating Engineer: SEE COMMENT [facility] Comment: JXM, CT(ASCP) CT screening location: [address] ??[address] HPV nRNA E6/E7 Not Detected Not Detected [facility] Comment: Methodology: Director Of Direct Marketing-Mediated Amplification This assay detects E6/E7 viral messenger RNA (mRNA) from 14 high-risk HPV types (16,18,31,33,35,39,45,51,52,56,58,59,66,68). ? The analytical performance characteristics of this assay have been determined by [employer]. The modifications have not been cleared or approved by the FDA. This assay has been validated pursuant to the CLIA regulations and is used for clinical purposes. ?? For additional information, please refer to http://education.Streem/faq/MUI646q1 (This link if provided for information/ educational purposes only.) Interpretation/Re sult: Negative for intraepithelial lesion or malignancy. [facility] LMP: NONE GIVEN [facility] Prev. BX: NONE GIVEN [facility]OUND[facility] N [facility] Prev. PAP: NONE GIVEN FOUNDATI ON LAB SYSTEM SOURCE: None given [facility] Statement Of Adequacy: SEE COMMENT [facility] Comment: Satisfactory for evaluation. Endocervical/transformation zone component present. Age and/or menstrual status not provided 01/13/2021 1:37 PM EST us Venecia Dumont CNM LAB PATHOLOGY ORDERABLES Final Result [facility] [address] from Last 3 Months or Most Recently Relevant to Health Maintenance Insurance [facility] MEDICAID LIMITED ADULT DENTAL - HSN FULL (MEDICAID) Care Teams Stripe Matcher Relationship Specialty Start Date End Date Kimberli Patel MD [address] [place] [id number] PCP - General Family Medicine 11/24/21
--- OUTSIDE RECORDS SUMMARY | 2024-12-14 11:10 | XMS_ITS | Encounter Summary ---
Author Organization [employer] Address [address] [facility] 7[address] [place] [address] Care Team Providers Care Director Regulatory Compliance Name Role Phone Kimberli Patel MD Primary Care Provider [phone] Reason for Referral * Imaging (Routine) - Closed Specialty Diagnoses / Procedures Referred By Contac t Referred To Contact Radiology Diagnoses Mass of right breast, unspecified quadrant Procedures BI MR Breast w/ and w/o Contrast Right Kimberli Patel MD [address] [place] [address] Phone: tel: fax: [facility] [address] [place] [address] Phone: tel: fax: Referral ID Status Reason Start Date Expiration Date Visits Re quested Visits Authorized [id number] Closed 11/21/2024 11/21/2025 1 1 Encounter Details Date Type Department Care Team (Late st Contact Info) Description 11/21/2024 Telephone [facility] [address] [place] [address] Kimberli Patel MD [address] [place], [place] [phone] Social History Tobacco Use Types Packs/Day Years [...] documented as of this encounter Care Teams Director Regulatory Compliance Relationship Specialty Start Date End Date Kimberli Patel MD [address] [place] [address] PCP - General Family Medicine 11/24/21 documented as of this encounter
--- OUTSIDE RECORDS SUMMARY | 2024-12-14 11:10 | XMS_ITS | Encounter Summary ---
Author Organization [facility] Address [address] [facility] 7[address] [place] [address] Care Team Providers Care Printed Circuit Board Panels Deburrer Name Role Phone Kimberli Patel MD Primary Care Provider [phone] Encounter Details Date Type Department Care Team (Latest Contact Info) Description 08/10/2019 Abstract [facility] CONVERSIONS Dental, Provider, DDS Social History [...] on filedocumented in this encounter Care Teams Printed Circuit Board Panels Deburrer Relationship Specialty Start Date End Date Kimberli Patel MD [address] [place] [address] PCP - General Family Medicine 11/24/21 documented as of this encounter
--- OUTSIDE RECORDS SUMMARY | 2024-12-14 11:10 | XMS_ITS | Encounter Summary ---
Author Organization [employer] Address [address] [facility] 7 [place] [address] Care Team Providers Care Coal Trimmer Name Role Phone Kimberli Patel MD Primary Care Provider [phone] Reason for Visit * Reason Onset Date Comments MRI BREAST ORDER 11/22/2024 Encounter Details Date Type Department Care Team ([facility] Contact Info) Description 11/22/2024 Telephone [employer] [facility] [address] [place] [address] Kimberli Patel MD [address] [place] [phone] MRI BREAST ORDER Social History Tobacco Use [...] in 6 months? * Telephone Encounter - Cahrla Patel - 11/22/2024 1:41 PM EST [place] [facility] [place] exam done 11/02/24 and pts following up [place] [address] LOWRY. documented in this encounter Plan of Treatment Not on file documented as of this encounter Visit Diagnoses Not on filedocumented in this encounter Additional Health Concerns Assessment Noted Time PHQ-9 Depression Total Score: 0 01/04/20 23 4:04 PM EST documented as of this encounter Care Teams Coal Trimmer Relationship Specialty Start Date End Date Kimberli Patel MD [address] [place] [address] PCP - General Family Medicine 11/24/21 documented as of this encounter
== END 2024-12-14 10:43 | disposition home or self-care (01) ==
PROVIDERS: PCP Family Medicine; Visit Provider Surgery
DX: C50.912 Malignant neoplasm of unspecified site of left female breast (principal); D05.12 Intraductal carcinoma in situ of left breast
CPT/HCPCS: 99024

== ENCOUNTER → 2024-12-14 10:16 | Outpatient (BNVA) | payer MEDICAID, OTHER, SELFPAY | PROVIDERS: PCP Family Medicine; Visit Provider Surgery | DX: C50.912 Malignant neoplasm of unspecified site of left female breast (principal) | CPT/HCPCS: 99212 ==

== ENCOUNTER → 2024-12-26 11:20 | Outpatient (BNV) | payer SELFPAY | PROVIDERS: PCP Family Medicine; Visit Provider Internal Medicine | DX: C50.912 Malignant neoplasm of unspecified site of left female breast (principal) | CPT/HCPCS: 99205; G2211 ==

== ENCOUNTER → 2025-01-02 07:53 | Outpatient (REF) | payer MEDICAID, OTHER, SELFPAY ==
--- NOTE | 2025-01-02 07:56 | CA_ITS ---
Transthoracic Echocardiogram Patient (Last, First, Middle): Yeny Jackson V Gender: Female Date of : 1985 Age: 39 Procedure Date: 01/02/2025 Procedure Type: Transthoracic Echocardiogram Location: OP Height: 154.94 cm Weight: 68.95 kg BSA: 1.68 m2 Heart Rate: bpm BP: 122 / 70 mmHg Clinical Instructor: Referring MD: Cristina Galindo MD Symptoms: C50.912 Malignant neoplasm of left female breast, Pre chemo evaluation Study Quality: Good ECG Rhythm: Sinus Conclusions: - The left ventricular systolic function is normal. The calculated ejection fraction is 62% by biplane method. - No obvious valvular pathology seen on this study. Findings Left Ventricle Normal left ventricular cavity size. There is normal left ventricular wall thickness. The left ventricular systolic function is normal. The calculated ejection fraction is 62% by biplane method. There is no evidence of regional wall motion abnormalities. Diastolic function is normal for age. Right Ventricle Normal right ventricular cavity size and systolic function. Atria Both atria are normal in size. Aortic Valve There is a normal trileaflet aortic valve. There is no aortic valve stenosis. There is no aortic valve regurgitation. Mitral Valve The mitral valve appears normal. There is no mitral valve regurgitation. There is no mitral valve stenosis. Pulmonic Valve The pulmonic valve is likely normal. Tricuspid Valve Normal tricuspid valve structure. There is trace tricuspid valve regurgitation. There is no evidence of pulmonary hypertension. Great Vessels The asc aorta is normal in size. Venous The inferior vena cava is normal in size and collapses greater than 50% with inspiration. Pericardium/Pleural There is no evidence of pericardial effusion. Prior Study Comparison No prior study available for comparison. Recommendations, Care & Conclusions No obvious valvular pathology seen on this study. Measurements 2D Linear Measurements IVSd: 1.02 0.6-0.9/0.6-1.0 cm LVIDd: 3.82 3.9-5.3/4.2-5.9 cm LVIDd Index: 2.27 2.4-3.2/2.2-3.1 cm/m2 LVIDs: 2.17 2.0-3.6 cm LVPWd: 1.04 0.7-1.1 cm Ao Root: 2.60 2.1-3.5 cm LA Diam: 2.60 2.7-3.8/3.0-4.0 cm LAIDs Index: 1.55 1.5-2.3 cm/m2 LV Mass: 153.46 67-162/88-224 g LV Mass Index: 91.34 43-95/49-115 g/m2 LVOT Diam: 2.00 3.0+(-)1.3 cm 2D Systolic Function EF 4C: 60.50 >55% EF 2C: 63.80 >55% EF BiP: 62.00 >55% Mitral Valve MV Pk E: 0.75 MV PK A: 0.65 MV Decel Time: 170.00 E/A: 1.20 E'Lateral: 15.40 E'Medial: 12.60 E/E' Med: 5.90 E/E' Lat: 4.80 PHT: 50.00 MVA PHT: 4.40 Decel [place]: 4.39 Aortic Valve AoV Pk Juan: 1.06 AoV Mn Juan: 0.75 AoV VTI: 0.21 AoV Pk Grad: 4.00 Aov Mn Grad: 3.00 NEGRITA Cont.VTI: 2.39 LVOT LVOT Pk Juan: 0.77 LVOT Mn Juan: 0.50 LVOT VTI: 0.16 LVOT Pk Grad: 2.00 LVOT Mn Grad: 1.00 LVOT Diam: 2.00 LVOT Area: 3.14 Diastolic Function MV Pk E: 0.75 MV Pk A: 0.65 E/A: 1.20 E'Medial: 12.60 E/E' Med: 5.90 E' Laterial: 15.40 E/E' Lat: 4.80 Right Ventricle TAPSE (mm): 23.00 TVS' Juan: 11.00 Tricuspid Valve TR Pk Juan: 1.62 TR Pk Grad: 10.00 RA Press: 3.00 RVSP: 13.00 Great Vessels Aorta Ao Root-2D: 2.60 2.0-3.7 cm Ao Asc: 2.30 2.1-3.4 cm Pulmonary Valve PV Pk Juan: 0.95 Peak PV Grad: 4.00 Updated in Other Vendor System with Status of Final Feliciano Elkins MD electronically signed on 01/03/2025 7:47:15 AM with status of Final
--- OUTSIDE RECORDS SUMMARY | 2025-01-02 07:58 | XMS_ITS | Clinical Summary ---
Author Organization [employer] Address [address] [facility] [address] [place] [address] Care Team Providers Care Box Builder Name Role Phone Kimberli Patel MD Primary Care Provider [phone] Allergies Active Allergy Reactions Criticality Noted Date [...] Type Department Care Team Description 11/22/2024 Telephone [facility]ly [facility] Information Management [address] [place] [address] Kimberli Patel MD MRI BREAST ORDER 11/21/2024 Telephone [facility] MEDICINE [address] [place] [address] Kimberli Patel MD 11/08/2024 Orders Only [facility] External Provider, [facility] 10/17/2024 Telephone [facility] CHC MED & PEDS [address] [place] [address] Melissa Mejia RN Results 10/17/2024 Telephone [facility] MED & PEDS [address] [place], [place] [phone] Kimberli Patel MD from Last 3 Months [...] is your housing situation today? I have cmaeron lopez 09/05/[address] you [...] EST Narrative 12/03/2024 3:12 PM EST ? [facility] ?[address] ?[place] [address] ? Mammography Report ? Signed ? Patient: Jackson,Yeny V ?MR#: [id number] ?? [id number] ? : 1985 ?Acct:[id number] ? Age/Sex: 39 / F ?ADM Date: 12/03/ ? Loc: HO.SSS ? Attending Dr: Mariusz Lassiter MD ? Ordering Physician: Mariusz Lassiter MD ?Results: ? Date of Service: 12/03/ ?Follow Up: ? Procedure(s): MM surgical specimen ?? Accession Number(s): [id number] ? cc: Mariusz Lassiter MD; Kimberli Patel [...] DD/ 1118 ? TD/TT: 12/03/24 1450 ? [employer]: ? Procedure Note Donotuseinterpreter, Image - 12/03/[address] [address] Mammography Report Signed Patient: Yeny Jackson VMR#: [id number] : 1985Acct:[id number] Age/Sex: 39 / FADM Date: 12/03/24 Loc: HO.SSS Attending Dr: Mariusz Lassiter MD Ordering Physician: Mariusz Lassiteresults: Date of Service: 12/03/24Follow Up: Procedure(s): MM surgical specimen Accession Number(s): [id number] cc: Mariusz Lassiter MD; Kimberli Patel MD [...] 12/03/24 1509 DD/ 1118 TD/TT: 12/03/24 1450 [employer]: [facility] External Provider IMG BI PROCEDURES Final Result * Hematoxylin and Eosin Stain (12/03/2024 10:48 AM EST) Only the most recent of2 resultswithin the time period is included. 12/03/2024 10:4 8 AM EST 12/03/2024 10:57 AM EST [facility] LABS - 12/06/2024 3:10 PM EST ----- ------- Name: Yeny Jackson V ?Age/Sex: 39/F ? : 1985 Unit#: [id number] ?? Attend Dr: Mariusz Lassiter MD ?Re12/03/24 ?Status: DEP SDC ? Location: HO.SSS ?Disch: ? ----- ------- SPEC : [id number] ?RECD: 12/03/24 ? STATUS: ??SOUT ? REQ NUM: [id number] ? ARNAUD: 12/03/24-1047 ? SUBM DR: Mariusz [...] V ?Age/Sex: 39/F ? : 1985 Unit#: [id number] ?? Attend Dr: Mariusz Lassiter MD ?Re12/03/24 ?Status: DEP SDC ? Location: HO.SSS ?Disch: ? ----- ------- SPEC : [id number] ?RECD: 12/03/24-1056 ? STATUS: ??SOUT ? REQ NUM: [id number] ? ARNAUD: 12/03/240 ? SUBM DR: Mariusz Lassiter MD ? ENTERED: ??12/03/248 ?SP TYPE: Surgical ? OTHR DR: Kimberli [...] Lymph nodes ? Number examined: ?4 ? [place] nodes: ?3 ? Axillary nodes: ?1 ? Number involved: ? With macrometastases: ?2 ? With micrometastases: ?0 ? With isolated tumor cells: ?0 ? Extranodal extension: ?Present ? Size of largest met. deposit: ?? 2.0 cm ?? Treatment effect ? Breast: ? Not identified ? Lymph nodes: ?Not identified ?? TNM: ? pT1c N1a(sn) ?? Ancillary studies: ?ER positive, IN positive, HER2 negative, low proliferation (see ?? S25-12). 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 ??Microscopic sections reviewed. ? CONTINUED ON NEXT PAGE ----- ------- Name: Yeny Jackson V ?Age/Sex: 39/F ? : 1985 Unit#: [id number] ?? Attend Dr: Mariusz Lassiter MD ?Re12/03/24 ?Status: DEP SDC ? Location: HO.SSS ?Disch: ? ----- ------- SPEC : [id number] ?RECD: 12/03/24 ? STATUS: ??SOUT ? REQ NUM: [id number] ? ARNAUD: 12/03/24 ? SUBM DR: Mariusz [...] lumpectomy ?? B. Posterior margin ?? C. [place] lymph node #1 (4,500) ?? D. [place] lymph node #2 (3,800) ?? E. Tag lymph node (Sent fresh) ?? F. [place] lymph node #3 (1,125) ?? G. Anterior [...] V ?Age/Sex: 39/F ? : 1985 Unit#: [id number] ?? Attend Dr: Mariusz Lassiter MD ?Re12/03/24 ?Status: DEP SDC ? Location: HO.SSS ?Disch: ? ----- ------- SPEC : [id number] ?RECD: 12/03/24 ? STATUS: ??SOUT ? REQ NUM: [id number] ? ARNAUD: 12/03/24-1047 ? SUBM DR: Mariusz [...] V ?Age/Sex: 39/F ? : 1985 Unit#: [id number] ?? Attend Dr: Mariusz Lassiter MD ?Re12/03/24 ?Status: DEP SDC ? Location: HO.SSS ?Disch: ? ----- ------- SPEC : [id number] ?RECD: 12/03/24 ? STATUS: ??SOUT ? REQ NUM: [id number] ? ARNAUD: 12/03/24-1047 ? SUBM DR: Mariusz [...] [facility] [address] ?? [place] [address] ?? [phone] ?? Kimberli Patel MD ?? [address] ?? [place] ?? [phone] ? CONTINUED ON NEXT PAGE ----- ------- Name: Yeny Jackson V ?Age/Sex: 39/F ? : 1985 Unit#: [id number] ?? Attend Dr: Mariusz Lsasiter MD ?Re12/03/24 ?Status: DEP SDC ? Location: HO.SSS ?Disch: ? ----- ------- SPEC : [id number] ?RECD: 12/03/24-1056 ? STATUS: ??SOUT ? REQ NUM: [id number] ? ARNAUD: 12/03/24-1047 ? SUBM DR: Mariusz [...] Provider LAB BLOOD ORDERAB LES Final Result [facility]S [address] [place] [address] [phone] * NM SENTINEL NODE W IMAGING (12/03/2024 7:46 AM EST) Anatomical Region Laterality Modality Nuclear Medicine 12/03/2024 7:46 AM EST Narrative 12/03/2024 1:23 PM EST ? [facility] ?[address] [facility] ?[place] [address] ?Nuclear Medicine Report ? Signed ? Patient: Jackson,Yeny V ?MR#: [id number] ?? [id number] ? : 1985 ?Acct:[id number] ? Age/Sex: 39 / F ?ADM Date: 01/27/25 ? Loc: HO.SSS ? Attending Dr: Mariusz Lassiter MD ? Ordering Physician: Mariusz Lassiter MD ?? Date of Service: 12/03/24 ?? Procedure(s): NM sentinel node w imaging ?? Accession Number(s): [id number] ? cc: Mariusz Lassiter MD; Kimberli Patel [...] DD/ 0746 ? TD/TT: 12/03/24 0915 ? [employer]: MSM ? Procedure Note Bell, Image - 12/03/[address] [address] Nuclear Medicine Report Signed Patient: Yeny Jackson R#: [id number] : 1985Acct:[id number] Age/Sex: 39 / FADM Date: 12/03/24 Loc: HO.SSS Attending Dr: Mariusz Lassiter MD Ordering Physician: Mariusz Lassiter MD Date of Service: 12/03/24 Procedure(s): NM sentinel node w imaging Accession Number(s): [id number] cc: Mariusz Lassiter MD; Kimberli Patel MD [...] 12/03/24 1320 DD/ 0746 TD/TT: 12/03/24 0915 [employer]: MSM [facility] External Provider IMG NM PROCEDURES Final Result * HCG, Qualitative, Urine (12/03/2024 7:11 AM EST) Urine NEGATIVE NEGATIVE [facility] Comment:This test was develo ped to detect early . Falsenegative results may occur after the 5th - 7th week ofpregnancy when using this test method. If clinicallyindicated, consider a serum hCG. 12/03/2024 7:11 AM EST 12/03/2024 7:57 AM EST Generic External Data Provider LAB URINE ORDERAB LES Final Result [facility] [address] [place] [phone] * BI Mammogram Diagnostic Tomosynthesis Left (11/29/2024 9:58 AM EST) Only the most recent of2 resultswithin the time period is included. Anatomical Region Laterality Modality Breast Left Mammography 11/29/2024 9:58 AM EST Narrative 11/30/2024 12:43 PM EST ? [facility] ? [address] ?[place], [place] [address] ? Mammography Report ? Signed ? Patient: Jackson,Yeny V ?MR#: [id number] ?? [id number] ? : 1985 ?Acct:[id number] ? Age/Sex: 39 / F ?ADM Date: 11/29/24 ? Loc: HO.MAMMO ? Attending Dr: Mariusz Lassiter MD ? Ordering Physician: Mariusz Lassiter MD ?Results: 1Nega ?? tive ? Date of Service: 11/29/24 ?Follow Up: 1 Year From Orig ?? inal Mammogram ? Procedure(s): MM tomosynthesis diagnostic LT ?? Accession Number(s): [id number] ? cc: Mariusz Lassiter MD; Kimberli Patel [...] DD/ 0958 ? TD/TT: 11/29/24 1018 ? [employer]: ? Procedure Note Rosa Luu - 11/30/2024 [place] [facility] [address] [place], [place] [address] Mammography Report Signed Patient: Yeny Jackson R#: [id number] : 1985Acct:[id number] Age/Sex: 39 / FADM Date: 11/29/24 Loc: HO.MAMMO Attending Dr: Mariusz Lassiter MD Ordering Physician: Mariusz Lassiter MDResults: 1Nega tive Date of Service: 11/29/24Follow Up: 1 Year From Orig inal Mammogram Procedure(s): MM tomosynthesis diagnostic LT Accession Number(s): [id number] cc: Mariusz Lassiter MD; Kimberli Patel MD [...] by: Dulce Richardson DO 11/30/2024 12:40 PM [facility] Dictated By: Dulce Richardson DO Signed By: <Electronically signed by Dulce Richardson DO in OV> 11/30/24 1240 DD/ 0958 TD/TT: 11/29/24 1018 [employer]: [facility] External Provider IMG BI PROCEDURES Final Result * US BREAST NDL CORE BIO EA ADD (11/08/2024 10:00 AM EST) Anatomical Region Laterality Modality Abdomen Ultrasound 11/08/2024 10:0 0 AM EST Narrative 11/08/2024 1:04 PM EST ? [facility] [place] ? [address] ?[place] [address] ? Ultrasound Report ? Signed with Addenda ? Patient: Yeny Jackson V ?MR#: [id number] ?? [id number] ? : 1985 ?Acct:[id number] ? Age/Sex: 39 / F ?ADM Date: 11/08/24 ? Loc: HO.MAMMO ? Attending Dr: Mariusz Lassiter MD ? Ordering Physician: Mariusz Lassiter MD ?? Date of Service: 11/08/24 ?? Procedure(s): US breast ndl core bio ea add ?? Accession Number(s): [id number] ? cc: Mariusz Lassiter MD; Kimberli Patel [...] ??11/08/2024 01:01 PM EST ?? RP Workstation: Field Agent ? US/ breast ndl core bio ea [...] DD/ 1000 ? TD/TT: 11/08/24 1115 ? [employer]: ? Procedure Note Dongiovana, Image - 12/02/2024 [place] [facility] [address] [place] [address] Ultrasound Report Signed with Matilde Patient: Yeny Jackson VMR#: [id number] : 1985Acct:[id number] Age/Sex: 39 / FADM Date: 11/08/24 Loc: RAMONO Attending Dr: Mariusz Lassiter MD Ordering Physician: aMriusz Lassiter MD Date of Service: 11/08/24 Procedure(s): breast ndl core bio ea add Accession Number(s): [id number] cc: Mariusz Lassiter MD; Kimberli Patel MD [...] 11/19/24 1342 DD/ 1000 TD/TT: 11/08/24 1115 [employer]: [facility] External Provider IMG US PROCEDURES Edited Result - Final * BI US Breast Limited Right (11/08/2024 10:00 AM EST) Anatomical Region Laterality Modality Breast Right Ultrasound 11/08/2024 10:0 0 AM EST Narrative 11/08/2024 12:15 PM EST ? [facility] ? [address] ?[place] [address] ? Ultrasound Report ? Signed ? Patient: Jackson,Yeny V ?MR#: [id number] ?? [id number] ? : 1985 ?Acct:[id number] ? Age/Sex: 39 / F ?ADM Date: /02/25 ? Loc: HO.MAMMO ? Attending Dr: Mariusz Lassiter MD ? Ordering Physician: Mariusz Lassiter MD ?? Date of Service: 11/08/24 ?? Procedure(s): US breast RT limited mamm only ?? Accession Number(s): [id number] ? cc: Mariusz Lassiter MD; Kimberli Patel [...] DD/ 1000 ? TD/TT: 11/08/24 1115 ? [employer]: ? Procedure Note Donotuseinterpreter, Image - 11/20/2024 [place] [facility] [address] [place], [place] [address] Ultrasound Report Signed Patient: Yeny Jackson VMR#: [id number] : 1985Acct:[id number] Age/Sex: 39 / FADM Date: 11/08/24 Loc: HO.MAMMO Attending Dr: Maruisz Lassiter MD Ordering Physician: Mariusz Lassiter MD Date of Service: 11/08/24 Procedure(s): US breast RT limited mamm only Accession Number(s): [id number] cc: Mariusz Lassiter MD; Kimberli Patel MD [...] 11/08/24 1212 DD/ 1000 TD/TT: 11/08/24 1115 [employer]: [facility] External Provider IMG US PROCEDURES Edited Result - Final * BI MR Guided Breast Biopsy Left (11/08/2024 10:00 AM EST) Anatomical Region Laterality Modality Breast Left Magnetic Resonan ce 11/08/2024 10:0 0 AM EST Narrative 11/08/2024 1:04 PM EST ? [facility] ? [address] ?[place] [address] ? Ultrasound Report ? Signed with Addenda ? Patient: Manuel,Yeny V ?MR#: [id number] ?? [id number] ? : 1985 ?Acct:[id number] ? Age/Sex: 39 / F ?ADM Date: 11/08/24 ? Loc: HO.MAMMO ? Attending Dr: Mariusz Lassiter MD ? Ordering Physician: Mariusz Lassiter MD ?? Date of Service: 11/08/24 ?? Procedure(s): US breast ndl core biopsy LT ?? Accession Number(s): [id number] ? cc: Mariusz Lassiter MD; Kimberli Patel [...] DD/ 1000 ? TD/TT: 11/08/24 1115 ? [employer]: ? Procedure Note Donluister, Image - 12/02/2024 [place] [facility] [address] [place] [address] Ultrasound Report Signed with Matilde Patient: Yeny Jackson VMR#: [id number] : 1985Acct:[id number] Age/Sex: 39 / FADM Date: 11/08/24 Loc: WALTER Attending Dr: Mariusz Lassiter MD Ordering Physician: Mariusz Lassiter MD Date of Service: 11/08/24 Procedure(s): breast ndl core biopsy LT Accession Number(s): [id number] cc: Mariusz Lassiter MD; Kimberli Patel MD [...] 11/19/24 1342 DD/ 1000 TD/TT: 11/08/24 1115 [employer]: [facility] External Provider IMG MRI PROCEDURES Edited Result - Final * BI MR Breast w and w/o Contrast Bilateral (11/02/2024 3:19 PM EST) Anatomical Region Laterality Modality Breast Bilateral Magnetic Resonan ce 11/02/2024 3:19 PM EST Narrative 11/08/2024 12:17 PM EST ? [facility] ?[address] ?[place] [address] ? Magnetic Resonance Report ? Signed ? Patient: Jackson,Yeny V ?MR#: [id number] ?? [id number] ? : 1985 ?Acct:[id number] ? Age/Sex: 39 / F ?ADM Date: 12/27/24 ? Loc: HO.MRI ? Attending Dr: Kimberli Patel MD ? Ordering Physician: Kimberli Patel MD ?? Date of Service: 11/02/24 ?? Procedure(s): MR breast BI wo/w con ?? Accession Number(s): [id number] ? cc: Kimberli Patel MD ? EXAMINATION: [...] DD/ 1519 ? TD/TT: 11/02/24 1645 ? [employer]: ? Procedure Note Bell, Image - 11/08/2024 [place] [address] Magnetic Resonance Report Signed Patient: Yeny Jackson VMR#: [id number] : 1985Acct:[id number] Age/Sex: 39 / FADM Date: 11/02/24 Loc: HO.MRI Attending Dr: Kimberli Patel MD Ordering Physician: Kimberli Patel MD Date of Service: 11/02/24 Procedure(s): MR breast BI wo/w con Accession Number(s): [id number] cc: Kimberli Patel MD EXAMINATION: MR BREAST [...] 11/08/24 1214 DD/ 1519 TD/TT: 11/02/24 1645 [employer]: us Kimberli Patel MD IMG MRI PROCEDURES Edited Res ult - Final * BI US Breast Limited Left (10/16/2024 10:30 AM EST) Anatomical Region Laterality Modality Breast Left Ultrasound 10/16/2024 10:3 0 AM EST Narrative 10/16/2024 11:31 AM EST ? [facility] ? [address] ?[place] [address] ? Ultrasound Report ? Signed ? Patient: Jackson,Yeny V ?MR#: [id number] ?? [id number] ? : 1985 ?Acct:[id number] ? Age/Sex: 39 / F ?ADM Date: 10/16/24 ? Loc: HO.MAMMO ? Attending Dr: Kimberli Patel MD ? Ordering Physician: Kimberli Patel MD ?? Date of Service: 10/16/24 ?? Procedure(s): US breast LT limited mamm only ?? Accession Number(s): [id number] ? cc: Kimberli Patel MD ? EXAMINATION: [...] DD/ 1030 ? TD/TT: 10/16/24 1110 ? [employer]: ? Procedure Note Rosa Luu - 10/16/2024 [place] [facility] [address] [place] [address] Ultrasound Report Signed Patient: Yeny Jackson VMR#: [id number] : 1985Acct:[id number] Age/Sex: 39 / FADM Date: 10/16/24 Loc: HO.MAMMO Attending Dr: Kimberli Patel MD Ordering Physician: Kimberli Patel MD Date of Service: 10/16/24 Procedure(s): US breast LT limited mamm only Accession Number(s): [id number] cc: Kimberli Patel MD EXAMINATION: MM DIAGNOSTIC [...] 10/16/24 1127 DD/ 1030 TD/TT: 10/16/24 1110 [employer]: us Kimberli Patel MD IMG US PROCEDURES Final Resul t * BI Mammogram Diagnostic Tomosynthesis Bilateral (10/16/2024 10:00 AM EST) Anatomical Region Laterality Modality Breast Bilateral Mammography 10/16/2024 10:0 0 AM EST Narrative 10/16/2024 11:31 AM EST ? [facility] ? [address] ?[place] [address] ? Mammography Report ? Signed ? Patient: Jackson,Yeny V ?MR#: [id number] ?? [id number] ? : 1985 ?Acct:[id number] ? Age/Sex: 39 / F ?ADM Date: 12/10/24 ? Loc: HO.MAMMO ? Attending Dr: Kimberli Patel MD ? Ordering Physician: Kimberli Patel MD ?Results: 4Susp ?? icious Finding ? Date of Service: 12/10/24 ?Follow Up: Biopsy Recommend ?? ed ? Procedure(s): MM tomosynthesis diagnostic BI ?? Accession Number(s): [id number] ? cc: Kimberli Patel MD ? EXAMINATION: [...] DD/ 1000 ? TD/TT: 10/16/24 1110 ? [employer]: ? Procedure Note Donotuseinterpreter, Image - 10/16/2024 [place] [facility] [address] [place] [address] Mammography Report Signed Patient: Yeny Jackson VMR#: [id number] : 1985Acct:[id number] Age/Sex: 39 / FADM Date: 10/16/24 Loc: HO.MAMMO Attending Dr: Kimberli Patel MD Ordering Physician: Kimberli Patel MDResults: 4Susp icious Finding Date of Service: 10/16/24Follow Up: Biopsy Recommend ed Procedure(s): MM tomosynthesis diagnostic BI Accession Number(s): [id number] cc: Kimberli Patel MD EXAMINATION: MM DIAGNOSTIC [...] 10/16/24 1127 DD/ 1000 TD/TT: 10/16/24 1110 [employer]: us Kimberli Ptael MD IM BI PROCEDURES Final Resul t * THINPREP PAP AND HPV mRNA E6/E7 (01/13/2021 1:37 PM EST) Clinical Information: None given [facility] COMMENT SEE COMMENT [facility]OUNDAT[facility] ON [...] historic and ?? current clinical information. ?? Night Monitor: SEE COMMENT [facility] Comment: KAILEE MERAZ(ASCP) CT screening location: [address] ??[address] HPV nRNA E6/E7 Not Detected Not Detected [facility] Comment: Methodology: Endband Sizer-Mediated Amplification This assay detects E6/E7 viral messenger RNA (mRNA) from 14 high-risk HPV types (16,18,31,33,35,39,45,51,52,56,58,59,66,68). ? The analytical performance characteristics of this assay have been determined by [facility]. The modifications have not been cleared or approved by the FDA. This assay has been validated pursuant to the CLIA regulations and is used for clinical purposes. ?? For additional information, please refer to http://education.[employer]/faq/CNQ436d5 (This link if provided for information/ educational [...] Venecia EDGAR LAB PATHOLOGY ORDERABLES Final Result [facility] [address] from Last 3 Months or Most Recently Relevant to Health Maintenance Insurance [employer] [facility] MEDICA[facility] LIMITED ADULT DENTAL - N FULL (MEDICAID) Care Teams Box Builder Relationship Specialty Start Date End Date Kimberli Patel MD [address] [place] [id number] PCP - General Family Medicine 11/24/21
--- OUTSIDE RECORDS SUMMARY | 2025-01-02 07:58 | XMS_ITS | Encounter Summary ---
Author Organization [facility] Address [address] [facility] [address] [place] [address] Care Team Providers Care Draw Frame Runner Name Role Phone Kimberli Patel MD Primary Care Provider [phone] Encounter Details Date Type Department Care Team (Latest Contact Info) Description 08/10/2019 Abstract [facility] CONVERSIONS Dental, Provider, DDS Social History Tobacco [...] on filedocumented in this encounter Care Teams Draw Frame Runner Relationship Specialty Start Date End Date Kimberli Patel MD [address] [place] [address] PCP - General Family Medicine 11/24/21 documented as of this encounter
== END ==
LOC: HO.CARD 07:53
PROVIDERS: PCP Family Medicine; Visit Provider Internal Medicine
DX: C50.912 Malignant neoplasm of unspecified site of left female breast (principal)
CPT/HCPCS: 93306

== ENCOUNTER → 2025-01-02 07:56 | Outpatient (BNV) | payer SELFPAY | PROVIDERS: PCP Family Medicine; Visit Provider Internal Medicine | DX: Z01.818 Encounter for other preprocedural examination (principal) | CPT/HCPCS: 93306 ==

== ENCOUNTER 2025-01-03 11:20 | Day surgery (SDC) | payer MEDICAID, OTHER, SELFPAY ==
--- OUTSIDE RECORDS SUMMARY | 2024-12-31 06:32 | XMS_ITS | Clinical Summary ---
Author Organization [employer] Address [address] [facility] 7[address] [place] [address] Care Team Providers Care Geophysical Operator Name Role Phone Kimberli Patel MD Primary Care Provider [phone] Allergies Active Allergy Reactions Criticality Noted Date [...] Type Department Care Team Description 11/22/2024 Telephone [facility] Information Management [address] [place] [phone] Kimberli Patel MD MRI BREAST ORDER 11/21/2024 Telephone [facility] [address] [place] [phone] Kimberli Patel MD 11/08/2024 Orders Only [facility] External Provider, [facility] 10/17/2024 Telephone [facility] [address] [place] [address] Melissa Mejia RN Results 10/17/2024 Telephone [facility] [address] [place], [place] [phone] Kimberli Patel MD from Last 3 Months Immunizations Name Administration [...] ADULT Routine 03/18/2023 8 :00 AM EDT INTRAORAL - COMPLETE SERIES OF RADIOGRAPHIC IMAGES Routine 03/04/2023 8:00 [...] EST Narrative 12/03/2024 3:12 PM EST ? [facility] ?[address] ?[place] [address] ? Mammography Report ? Signed ? Patient: Jackson,Yeny V ?MR#: [id number] ?? [id number] ? : 1985 ?Acct:[id number] ? Age/Sex: 39 / F ?ADM Date: 12/03/ ? Loc: HO.SSS ? Attending Dr: Mariusz Lassiter MD ? Ordering Physician: Mariusz Lassiter MD ?Results: ? Date of Service: 12/03/ ?Follow Up: ? Procedure(s): MM surgical specimen ?? Accession Number(s): [id number] ? cc: Mariusz Lassiter MD; Kimberli Patel [...] by Dulce Richardson, DO in OV> ? 12/03/24 1509 ? DD/ 1118 ? TD/TT: 12/03/24 1450 ? Dock Manager: ? Procedure Note Donotuseinterpreter, Image - 12/03/[address] [address] Mammography Report Signed Patient: Yeny Jackson VMR#: [id number] : 1985Acct:[id number] Age/Sex: 39 / FADM Date: 12/03/24 Loc: HO.SSS Attending Dr: Mariusz Lassiter MD Ordering Physician: Mariusz Lassiteresults: Date of Service: 12/03/24Follow Up: Procedure(s): MM surgical specimen Accession Number(s): [id number] cc: Mariusz Lassiter MD; Kimberli Patel MD [...] 12/03/24 1509 DD/ 1118 TD/TT: 12/03/24 1450 Dock Manager: [facility] External Provider IMG BI PROCEDURES Final Result * Hematoxylin and Eosin Stain (12/03/2024 10:48 AM EST) Only the most recent of2 resultswithin the time period is included. 12/03/2024 10:4 8 AM EST 12/03/2024 10:57 AM EST [facility] - 12/06/2024 3:10 PM EST ----- ------- Name: Yeny Jackson V ?Age/Sex: 39/F ? : 1985 Unit#: [id number] ?? Attend Dr: Mariusz Lassiter MD ?Re12/03/24 ?Status: DEP SDC ? Location: HO.SSS ?Disch: ? ----- ------- SPEC : [id number] ?RECD: 12/03/24 ? STATUS: ??SOUT ? REQ NUM: [id number] ? ARNAUD: 12/03/24-1047 ? SUBM DR: Mariusz [...] V ?Age/Sex: 39/F ? : 1985 Unit#: [id number] ?? Attend Dr: Mariusz Lassiter MD ?Re12/03/24 ?Status: DEP SDC ? Location: HO.SSS ?Disch: ? ----- ------- SPEC : [id number] ?RECD: 12/03/24-1056 ? STATUS: ??SOUT ? REQ NUM: [id number] ? ARNAUD: 12/03/245 ? SUBM DR: Mariusz Lassiter MD ? ENTERED: ??12/03/247 ?SP TYPE: Surgical ? OTHR DR: Kimberli [...] Lymph nodes ? Number examined: ?4 ? Oberlin nodes: ?3 ? Axillary nodes: ?1 ? Number involved: ? With macrometastases: ?2 ? With micrometastases: ?0 ? With isolated tumor cells: ?0 ? Extranodal extension: ?Present ? Size of largest met. deposit: ?? 2.0 cm ?? Treatment effect ? Breast: ? Not identified ? Lymph nodes: ?Not identified ?? TNM: ? pT1c N1a(sn) ?? Ancillary studies: ?ER positive, OH positive, HER2 negative, low proliferation (see ?? S25-12). 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 ??Microscopic sections reviewed. ? CONTINUED ON NEXT PAGE ----- ------- Name: Yeny Jackson V ?Age/Sex: 39/F ? : 1985 Unit#: [id number] ?? Attend Dr: Mariusz Lassiter MD ?Re12/03/24 ?Status: DEP SDC ? Location: HO.SSS ?Disch: ? ----- ------- SPEC : [id number] ?RECD: 12/03/24 ? STATUS: ??SOUT ? REQ NUM: [id number] ? ARNAUD: 12/03/24 ? SUBM DR: Mariusz [...] lumpectomy ?? B. Posterior margin ?? C. Oberlin lymph node #1 (4,500) ?? D. Oberlin lymph node #2 (3,800) ?? E. Tag lymph node (Sent fresh) ?? F. Oberlin lymph node #3 (1,125) ?? G. Anterior [...] V ?Age/Sex: 39/F ? : 1985 Unit#: [id number] ?? Attend Dr: Mariusz Lassiter MD ?Re12/03/24 ?Status: DEP SDC ? Location: HO.SSS ?Disch: ? ----- ------- SPEC : [id number] ?RECD: 12/03/24 ? STATUS: ??SOUT ? REQ NUM: [id number] ? ARNAUD: 12/03/24-1047 ? SUBM DR: Mariusz [...] V ?Age/Sex: 39/F ? : 1985 Unit#: [id number] ?? Attend Dr: Mariusz Lassiter MD ?Re12/03/24 ?Status: DEP SDC ? Location: HO.SSS ?Disch: ? ----- ------- SPEC : [id number] ?RECD: 12/03/24 ? STATUS: ??SOUT ? REQ NUM: [id number] ? ARNAUD: 12/03/24-1047 ? SUBM DR: Mariusz [...] Copies To: ?? Mariusz Lassiter MD ?? [facility] ?? [facility] [address] ?? [place] [address] ?? [phone] ?? Kimberli Patel MD ?? [address] ?? [place] ?? [phone] ? CONTINUED ON NEXT PAGE ----- ------- Name: Yeny Jcakson V ?Age/Sex: 39/F ? : 1985 Unit#: [id number] ?? Attend Dr: Mariusz Lassiter MD ?Re12/03/24 ?Status: DEP SDC ? Location: HO.SSS ?Disch: ? ----- ------- SPEC : [id number] ?RECD: 12/03/24-1056 ? STATUS: ??SOUT ? REQ NUM: [id number] ? ARNAUD: 12/03/24-1047 ? SUBM DR: Mariusz [...] Provider LAB BLOOD ORDERAB LES Final Result [facility] [address] [place] [address] [phone] * NM SENTINEL NODE W IMAGING (12/03/2024 7:46 AM EST) Anatomical Region Laterality Modality Nuclear Medicine 12/03/2024 7:46 AM EST Narrative 12/03/2024 1:23 PM EST ? [facility] ?[address] [facility] ?[place] [address] ?Nuclear Medicine Report ? Signed ? Patient: Jackson,Yeny V ?MR#: [id number] ?? [id number] ? : 1985 ?Acct:[id number] ? Age/Sex: 39 / F ?ADM Date: 01/27/25 ? Loc: HO.SSS ? Attending Dr: Mariusz Lassiter MD ? Ordering Physician: Mariusz Lassiter MD ?? Date of Service: 12/03/24 ?? Procedure(s): NM sentinel node w imaging ?? Accession Number(s): [id number] ? cc: Mariusz Lassiter MD; Kimberli Patel [...] 01:20 PM EST RP ? Dictated By: ?Gurpreet Sumner MD ? Signed By: ?<Electronically signed by Gurpreet Sumner MD in OV> ?12/03/24 1320 ? DD/ 0746 ? TD/TT: 12/03/24 0915 ? Dock Manager: MSM ? Procedure Note Bell, Image - 12/03/[address] [address] Nuclear Medicine Report Signed Patient: Yeny Jackson R#: [id number] : 1985Acct:[id number] Age/Sex: 39 / FADM Date: 12/03/24 Loc: HO.SSS Attending Dr: Mariusz Lassiter MD Ordering Physician: Mariusz Lassiter MD Date of Service: 12/03/24 Procedure(s): NM sentinel node w imaging Accession Number(s): [id number] cc: Mariusz Lassiter MD; Kimberli Patel MD [...] Gurpreet Sumner MD 12/03/2024 01:20 PM EST RP Dictated By: Gurpreet Sumner MD Signed By: <Electronically signed by Gurpreet Sumner MD in OV> 12/03/24 1320 DD/ 0746 TD/TT: 12/03/24 0915 Dock Manager: MSM [facility] External Provider IMG NM PROCEDURES Final Result * HCG, Qualitative, Urine (12/03/2024 7:11 AM EST) Urine NEGATIVE NEGATIVE [facility] Comment:This test was develo ped to detect early . Falsenegative results may occur after the 5th - 7th week ofpregnancy when using this test method. If clinicallyindicated, consider a serum hCG. 12/03/2024 7:11 AM EST 12/03/2024 7:57 AM EST Generic External Data Provider LAB URINE ORDERAB LES Final Result [facility] [address] [place] [address] [phone] * BI Mammogram Diagnostic Tomosynthesis Left (11/29/2024 9:58 AM EST) Only the most recent of2 resultswithin the time period is included. Anatomical Region Laterality Modality Breast Left Mammography 11/29/2024 9:58 AM EST Narrative 11/30/2024 12:43 PM EST ? [facility] ? [address] ?[place], [place] [address] ? Mammography Report ? Signed ? Patient: Jackson,Yeny V ?MR#: [id number] ?? [id number] ? : 1985 ?Acct:[id number] ? Age/Sex: 39 / F ?ADM Date: 11/29/24 ? Loc: HO.MAMMO ? Attending Dr: Mariusz Lassiter MD ? Ordering Physician: Mariusz Lassiter MD ?Results: 1Nega ?? tive ? Date of Service: 11/29/24 ?Follow Up: 1 Year From Orig ?? inal Mammogram ? Procedure(s): MM tomosynthesis diagnostic LT ?? Accession Number(s): [id number] ? cc: Mariusz Lassiter MD; Kimberli Patel [...] DD/ 0958 ? TD/TT: 11/29/24 1018 ? Dock Manager: ? Procedure Note Rosa Luu - 11/30/2024 [place] [facility] [address] [place], [place] [address] Mammography Report Signed Patient: Yeny Jackson R#: [id number] : 1985Acct:[id number] Age/Sex: 39 / FADM Date: 11/29/24 Loc: HO.MAMMO Attending Dr: Mariusz Lassiter MD Ordering Physician: Mariusz Lassiter MDResults: 1Nega tive Date of Service: 11/29/24Follow Up: 1 Year From Orig inal Mammogram Procedure(s): MM tomosynthesis diagnostic LT Accession Number(s): [id number] cc: Mariusz Lassiter MD; Kimberli Patel MD [...] by: Dulce Richardson DO 11/30/2024 12:40 PM [facility] Dictated By: Dulce Richardson DO Signed By: <Electronically signed by Dulce Richardson DO in OV> 11/30/24 1240 DD/ 0958 TD/TT: 11/29/24 1018 Dock Manager: [facility] External Provider IMG BI PROCEDURES Final Result * US BREAST NDL CORE BIO EA ADD (11/08/2024 10:00 AM EST) Anatomical Region Laterality Modality Abdomen Ultrasound 11/08/2024 10:0 0 AM EST Narrative 11/08/2024 1:04 PM EST ? [facility] ? [address] ?[place] [address] ? Ultrasound Report ? Signed with Addenda ? Patient: Yeny Jackson V ?MR#: [id number] ?? [id number] ? : 1985 ?Acct:[id number] ? Age/Sex: 39 / F ?ADM Date: 11/08/24 ? Loc: HO.MAMMO ? Attending Dr: Mariusz Lassiter MD ? Ordering Physician: Mariusz Lassiter MD ?? Date of Service: 11/08/24 ?? Procedure(s): US breast ndl core bio ea add ?? Accession Number(s): [id number] ? cc: Mariusz Lassiter MD; Kimberli Patel [...] ??11/08/2024 01:01 PM EST ?? RP Workstation: [employer] ? US/ breast ndl core bio ea [...] DD/ 1000 ? TD/TT: 11/08/24 1115 ? Dock Manager: ? Procedure Note Dongiovana, Image - 12/02/2024 [place] [facility] [address] [place] [address] Ultrasound Report Signed with Matilde Patient: Yeny Jackson VMR#: [id number] : 1985Acct:[id number] Age/Sex: 39 / FADM Date: 11/08/24 Loc: RAMONO Attending Dr: Mariusz Lassiter MD Ordering Physician: Mariusz Lassiter MD Date of Service: 11/08/24 Procedure(s): breast ndl core bio ea add Accession Number(s): [id number] cc: Mariusz Lassiter MD; Kimberli Patel MD [...] 11/19/24 1342 DD/ 1000 TD/TT: 11/08/24 1115 Dock Manager: [facility] External Provider IMG US PROCEDURES Edited Result - Final * BI US Breast Limited Right (11/08/2024 10:00 AM EST) Anatomical Region Laterality Modality Breast Right Ultrasound 11/08/2024 10:0 0 AM EST Narrative 11/08/2024 12:15 PM EST ? [facility] ? [address] ?[place] [address] ? Ultrasound Report ? Signed ? Patient: Jackson,Yeny V ?MR#: [id number] ?? [id number] ? : 1985 ?Acct:[id number] ? Age/Sex: 39 / F ?ADM Date: /02/25 ? Loc: HO.MAMMO ? Attending Dr: Mariusz Lassiter MD ? Ordering Physician: Mariusz Lassiter MD ?? Date of Service: 11/08/24 ?? Procedure(s): US breast RT limited mamm only ?? Accession Number(s): [id number] ? cc: Mariusz Lassiter MD; Kimberli Patel [...] DD/ 1000 ? TD/TT: 11/08/24 1115 ? Dock Manager: ? Procedure Note Donotuseinterpreter, Image - 11/20/2024 [place] [facility] [address] [place], [place] [address] Ultrasound Report Signed Patient: Yeny Jackson VMR#: [id number] : 1985Acct:[id number] Age/Sex: 39 / FADM Date: 11/08/24 Loc: HO.MAMMO Attending Dr: Mariusz Lassiter MD Ordering Physician: Mariusz Lassiter MD Date of Service: 11/08/24 Procedure(s): US breast RT limited mamm only Accession Number(s): [id number] cc: Mariusz Lassiter MD; Kimberli Patel MD [...] 11/08/24 1212 DD/ 1000 TD/TT: 11/08/24 1115 Dock Manager: [facility] External Provider IMG US PROCEDURES Edited Result - Final * BI MR Guided Breast Biopsy Left (11/08/2024 10:00 AM EST) Anatomical Region Laterality Modality Breast Left Magnetic Resonan ce 11/08/2024 10:0 0 AM EST Narrative 11/08/2024 1:04 PM EST ? [facility] ? [address] ?[place] [address] ? Ultrasound Report ? Signed with Addenda ? Patient: Manuel,Yeny V ?MR#: [id number] ?? [id number] ? : 1985 ?Acct:[id number] ? Age/Sex: 39 / F ?ADM Date: 11/08/24 ? Loc: HO.MAMMO ? Attending Dr: Mariusz Lassiter MD ? Ordering Physician: Mariusz Lassiter MD ?? Date of Service: 11/08/24 ?? Procedure(s): US breast ndl core biopsy LT ?? Accession Number(s): [id number] ? cc: Mariusz Lassiter MD; Kimberli Patel [...] DD/ 1000 ? TD/TT: 11/08/24 1115 ? Dock Manager: ? Procedure Note Donluister, Image - 12/02/2024 [place] [facility] [address] [place] [address] Ultrasound Report Signed with Matilde Patient: Yeny Jackson VMR#: [id number] : 1985Acct:[id number] Age/Sex: 39 / FADM Date: 11/08/24 Loc: WALTER Attending Dr: Mariusz Lassiter MD Ordering Physician: Mariusz Lassiter MD Date of Service: 11/08/24 Procedure(s): breast ndl core biopsy LT Accession Number(s): [id number] cc: Mariusz Lassiter MD; Kimberli Patel MD [...] 11/19/24 1342 DD/ 1000 TD/TT: 11/08/24 1115 Dock Manager: [facility] External Provider IMG MRI PROCEDURES Edited Result - Final * BI MR Breast w and w/o Contrast Bilateral (11/02/2024 3:19 PM EST) Anatomical Region Laterality Modality Breast Bilateral Magnetic Resonan ce 11/02/2024 3:19 PM EST Narrative 11/08/2024 12:17 PM EST ? [facility] ?[address] ?[place] [address] ? Magnetic Resonance Report ? Signed ? Patient: Jackson,Yeny V ?MR#: [id number] ?? [id number] ? : 1985 ?Acct:[id number] ? Age/Sex: 39 / F ?ADM Date: 12/27/24 ? Loc: HO.MRI ? Attending Dr: Kimberli Patel MD ? Ordering Physician: Kimberli Patel MD ?? Date of Service: 11/02/24 ?? Procedure(s): MR breast BI wo/w con ?? Accession Number(s): [id number] ? cc: Kimberli Patel MD ? EXAMINATION: [...] DD/ 1519 ? TD/TT: 11/02/24 1645 ? Dock Manager: ? Procedure Note Bell, Image - 11/08/2024 [place] [address] Magnetic Resonance Report Signed Patient: Yeny Jackson VMR#: [id number] : 1985Acct:[id number] Age/Sex: 39 / FADM Date: 11/02/24 Loc: HO.MRI Attending Dr: Kimberli Patel MD Ordering Physician: Kimberli Patel MD Date of Service: 11/02/24 Procedure(s): MR breast BI wo/w con Accession Number(s): [id number] cc: Kimberli Patel MD EXAMINATION: MR BREAST [...] 11/08/24 1214 DD/ 1519 TD/TT: 11/02/24 1645 Dock Manager: us Kimberli Patel MD IMG MRI PROCEDURES Edited Res ult - Final * BI US Breast Limited Left (10/16/2024 10:30 AM EST) Anatomical Region Laterality Modality Breast Left Ultrasound 10/16/2024 10:3 0 AM EST Narrative 10/16/2024 11:31 AM EST ? [facility] ? [address] ?[place] [address] ? Ultrasound Report ? Signed ? Patient: Jackson,Yeny V ?MR#: [id number] ?? [id number] ? : 1985 ?Acct:[id number] ? Age/Sex: 39 / F ?ADM Date: 10/16/24 ? Loc: HO.MAMMO ? Attending Dr: Kimberli Patel MD ? Ordering Physician: Kimberli Patel MD ?? Date of Service: 10/16/24 ?? Procedure(s): US breast LT limited mamm only ?? Accession Number(s): [id number] ? cc: Kimberli Patel MD ? EXAMINATION: [...] DD/ 1030 ? TD/TT: 10/16/24 1110 ? Dock Manager: ? Procedure Note Rosa Luu - 10/16/2024 [place] [facility] [address] [place] [address] Ultrasound Report Signed Patient: Yeny Jackson VMR#: [id number] : 1985Acct:[id number] Age/Sex: 39 / FADM Date: 10/16/24 Loc: HO.MAMMO Attending Dr: Kimberli Patel MD Ordering Physician: Kimberli Patel MD Date of Service: 10/16/24 Procedure(s): US breast LT limited mamm only Accession Number(s): [id number] cc: Kimberli Patel MD EXAMINATION: MM DIAGNOSTIC [...] 10/16/24 1127 DD/ 1030 TD/TT: 10/16/24 1110 Dock Manager: us Kimberli Patel MD IMG US PROCEDURES Final Resul t * BI Mammogram Diagnostic Tomosynthesis Bilateral (10/16/2024 10:00 AM EST) Anatomical Region Laterality Modality Breast Bilateral Mammography 10/16/2024 10:0 0 AM EST Narrative 10/16/2024 11:31 AM EST ? [facility] ? [address] ?[place] [address] ? Mammography Report ? Signed ? Patient: Jackson,Yeny V ?MR#: [id number] ?? [id number] ? : 1985 ?Acct:[id number] ? Age/Sex: 39 / F ?ADM Date: 12/10/24 ? Loc: HO.MAMMO ? Attending Dr: Kimberli Patel MD ? Ordering Physician: Kimberli Patel MD ?Results: 4Susp ?? icious Finding ? Date of Service: 12/10/24 ?Follow Up: Biopsy Recommend ?? ed ? Procedure(s): MM tomosynthesis diagnostic BI ?? Accession Number(s): [id number] ? cc: Kimberli Patel MD ? EXAMINATION: [...] by Dulce Richardson, DO in OV> ? 10/16/247 ? DD/ 1000 ? TD/TT: 10/16/24 1110 ? Dock Manager: ? Procedure Note Donotuseinterpreter, Image - 10/16/2024 [place] [facility] [address] [place] [address] Mammography Report Signed Patient: Yeny Jackson VMR#: [id number] : 1985Acct:[id number] Age/Sex: 39 / FADM Date: 10/16/24 Loc: HO.MAMMO Attending Dr: Kimberli Patel MD Ordering Physician: Kimberli Patel MDResults: 4Susp icious Finding Date of Service: 10/16/24Follow Up: Biopsy Recommend ed Procedure(s): MM tomosynthesis diagnostic BI Accession Number(s): [id number] cc: Kimberli Patel MD EXAMINATION: MM DIAGNOSTIC [...] 10/16/24 1127 DD/ 1000 TD/TT: 10/16/24 1110 Dock Manager: us Kimberli Patel MD IM BI PROCEDURES Final Resul t * THINPREP PAP AND HPV mRNA E6/E7 (01/13/2021 1:37 PM EST) Clinical Information: None given [facility] COMMENT SEE COMMENT [facility]OUND[facility] ON [...] historic and ?? current clinical information. ?? Otr Flatbed Driver: SEE COMMENT [facility] Comment: KAILEE MERAZ(ASCP) CT screening location: [address] ??[address] HPV nRNA E6/E7 Not Detected Not Detected [facility] Comment: Methodology: Box Spring Maker-Mediated Amplification This assay detects E6/E7 viral messenger RNA (mRNA) from 14 high-risk HPV types (16,18,31,33,35,39,45,51,52,56,58,59,66,68). ? The analytical performance characteristics of this assay have been determined by [employer]. The modifications have not been cleared or approved by the FDA. This assay has been validated pursuant to the CLIA regulations and is used for clinical purposes. ?? For additional information, please refer to http://education.2threads/faq/FUX146p8 (This link if provided for information/ educational [...] provided 01/13/2021 1:37 PM EST us Venecia EDGAR LAB PATHOLOGY ORDERABLES Final Result [facility] [address] from Last 3 Months or Most Recently Relevant to Health Maintenance Insurance [employer] (NOOM) [facility] ADULT DENTAL - N FULL (MEDICAID) Care Teams Geophysical Operator Relationship Specialty Start Date End Date Kimberli Patel MD [address] [place] [id number] PCP - General Family Medicine 11/24/21
--- OUTSIDE RECORDS SUMMARY | 2024-12-31 06:32 | XMS_ITS | Encounter Summary ---
Author Organization [facility] Address [address] [facility] 7[address] [place] [address] Care Team Providers Care Associate Name Role Phone Kimberli Patel MD Primary Care Provider [phone] Encounter Details Date Type Department Care Team (Latest Contact Info) Description 08/10/2019 Abstract [facility] CONVERSIONS Dental, Provider, DDS Social History Tobacco [...] on filedocumented in this encounter Care Teams Associate Relationship Specialty Start Date End Date Kimbelri Patel MD [address] [place] [address] PCP - General Family Medicine 11/24/21 documented as of this encounter
[2025-01-03] VITALS (14 sets, daily range): BP systolic 102–127; BP diastolic 57–80; PULSE 73–83; RESP 12–18; TEMP 36.6–37; O2SAT 98–100; BMI 28.1
--- NOTE | ~2025-01-03 | IR_ITS ---
CLINICAL HISTORY: Left breast cancer. The patient presents to interventional radiology for placement of a port for chemotherapy. PROCEDURES: 1. Real-time ultrasound-guided access into the right internal jugular vein after documentation of selected vessel patency, and permanent image storing in the patient records. 2. Placement of a 6.0 fr single-lumen power port. CLINICIAN: Guicho Martinez PA-C MEDICATIONS: - Versed 1.5 mg, Fentanyl 75 mcg, Lidocaine 1% 10 mL SQ -Antibiotics: Ancef 2g -For additional details, please see nursing flowsheet. Complications: None. Estimated blood loss: <5 ml Specimens: None. Contrast: None. Fluoroscopy time: 0.5 min MODERATE SEDATION TIME: 32 min PROCEDURE NOTE: The procedure, risks, benefits, and alternatives were carefully explained to the patient and written informed consent was obtained. The patient was placed supine on the fluoroscopy table. A timeout was performed. The right neck and chest was prepped and draped in usual sterile fashion. Maximum barrier technique was utilized. Local anesthesia was administered to the access site with 1% lidocaine. Under ultrasound guidance, the right internal jugular vein was accessed with a 5 fr micropuncture set. A 0.035 in wire was advanced into the IVC. A peel-away sheath was advanced over the wire and into the SVC, and the wire was removed. Next, subcutaneous lidocaine was administered to the chest. The port pocket was created after the skin incision, utilizing blunt dissection. Using blunt dissection, a subcutaneous tunnel was created that connects from the port pocket to the venotomy site. Through the peel-away sheath, the 6.0 fr port catheter was placed. The catheter position was verified with fluoroscopy to be at the superior vena cava/right atrial junction. The port was connected to the catheter and was placed in the pocket. The venotomy site was closed with a 3-0 Vicryl subcutaneous suture. The port incision site was closed with interrupted 3-0 Vicryl subcutaneous sutures and surgical glue. Prior to closing the skin, 1 g of Ancef solution was placed in the pocket. The port was tested, flushed, and packed with heparin per routine protocol. The patient tolerated the procedure well. The patient was stable after the procedure and was transferred to the PACU. The procedure was performed under moderate sedation and with a dedicated nurse with continuous monitoring of vital signs. A permanent image of the ultrasound the neck and fluoroscopic image of the chest was saved and sent to PACS. FINDINGS: 1. Patent right internal jugular vein 2. Placement of a 6.0 fr single-lumen power port. 3. Port flushes and aspirates very well with a 10 mL syringe. No pneumothorax. IR/IR cvc insert tunnel w prt/intelligence group supervisor IMPRESSION: Placement of a 6.0 fr single-lumen power port. PLAN: - The patient will be discharged home when stable by sedation protocol. - Port may be used immediately. This procedure was performed by Guicho Martinez PA-C, and directly supervised by Dr. Bonner Electronically signed by: Ace Bonner MD 01/07/2025 03:05 PM [facility]
[2025-01-03 12:26] LABS: UPreg QC Valid YES; Urine Pregnancy NEGATIVE (NEGATIVE)
--- NOTE | 2025-01-03 12:46 | MHC.SHP ---
Pre-Procedural Eval Section A - 24 Hr Update-Section A only Date of Service: 01/03/25 Section B - Complete if H&P > 30 days Chief Complaint: admin chemo-service date 12/29/24 Details of Present Illness: 39 y/o female with left breast cancer Relevant Family History (Specify if Yes): No Relevant Social History: None Present Medications: see Short Stay Collaborative assessment Medical History: Significant History (left breast ca) History of Previous Operations: Relevant previous surgery/procedure and date(s) (left lumpectomy ) Allergies: Allergies Allergy/AdvReac Type Severity Reaction Status Date / Time No Known Allergies Allergy Unverified 12/14/24 10:30 [No Known Allergies*] Review of Systems Sugical H&P ROS: Negative: Constitution, Cardiovascular and Respiratory Exam Surgical H&P Exam: Normal: Heart, Normal: Lungs, Normal: Skin and Normal: Neurological Plan 39 y/o female with left breast cancer and poor iv access -Right port Time Spent With Patient Time: Total time managing care of this patient today ____ minutes.
[2025-01-03] MEDS: Acetaminophen 1,000 MG/100 ML PIGGYBACK 400 MG IV (13:15)
[2025-01-03] MEDS: ceFAZolin Sodium/Dextrose,Iso 2 GM/50 ML PIGGYBACK IV (13:30)
[2025-01-03] MEDS: fentaNYL citrate/PF 100 MCG/2 ML VIAL 50 MCG IVPUSH (13:32)
[2025-01-03] MEDS: Midazolam HCl 2 MG/2 ML VIAL 0.5 MG IVPUSH (13:38)
[2025-01-03] MEDS: fentaNYL citrate/PF 100 MCG/2 ML VIAL 25 MCG IVPUSH (13:38)
[2025-01-03] MEDS: Midazolam HCl 5 MG/ML VIAL 1 MG IVPUSH (13:42)
== END 2025-01-03 14:40 | disposition home or self-care (01) ==
PROVIDERS: Physician Assistant Surgical; PCP Family Medicine; Visit Provider Internal Medicine
DX: Z45.2 Encounter for adjustment and management of vascular access device (principal); C50.112 Malignant neoplasm of central portion of left female breast; Z17.0 Estrogen receptor positive status [ER+]; Z17.21 Progesterone receptor positive status; Z17.32 Human epidermal growth factor receptor 2 negative status; Z30.44 Encounter for surveillance of vaginal ring hormonal contraceptive device; Z98.890 Other specified postprocedural states; Z80.0 Family history of malignant neoplasm of digestive organs; Z56.0 Unemployment, unspecified; Z79.1 Long term (current) use of non-steroidal anti-inflammatories (NSAID)
CPT/HCPCS: 36561; 76937; 81025; 99152; 99153; C1769; C1788; J0131; J0690; J1642; J1644; J2003; J2250; J2310; J3010

== ENCOUNTER → 2025-01-03 12:57 | Outpatient (BNV) | payer MEDICAID, SELFPAY | PROVIDERS: PCP Family Medicine; Visit Provider Physician Assistant Surgical | DX: C50.912 Malignant neoplasm of unspecified site of left female breast (principal) | CPT/HCPCS: 36561; 76937 ==

== ENCOUNTER 2025-01-15 14:52 | Outpatient (AMB) | payer MEDICAID, SELFPAY ==
--- NOTE | 2025-01-15 15:14 | A.OFFVIS_ITS ---
Vital Signs 3 01/15/25 15:23 Height 5 ft 1 in Weight 148 lb 9.465 oz BMI 28.1 BP 112/62 Blood Pressure Location Lt brachial Position Sitting Intake Visit Reasons: 1 mth f.u.S/P Lt brst lumpec w/locali & Lt. SN bx Intake Note: Patient is seen in office for one month follow up visit, post Left breast lumpectomy. 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 She denies a family history of breast cancer. She is . She underwent evaluation with a mammogram bilateral and ultrasound left breast which confirmed a density in the 3 o'clock position and axilla felt to be suspicious for malignancy. She underwent ultrasound-guided core biopsy on 11/08/2024 at the [facility]. 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 Biopsy of a left axillary node revealed fibrovascular tissue only with no lymph node or breast tissue present for evaluation. Immunohistochemical stains: Estrogen receptor positive, progesterone receptor positive, HER2 Ruth negative, Ki-67 low. She underwent left breast lumpectomy with sentinel node biopsy on 12/03/2024. Final pathology revealed invasive ductal carcinoma, grade 2, 2 cm extending to the anterior margin within microns of the inferior and posterior margin. 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 Additional margins of the anterior, posterior and inferior margin were negative for additional carcinoma. Two of 4 lymph nodes were positive for metastatic carcinoma. PT1c N1a (sn) (AJCC stage 8th edition). She was evaluated by Dr. Galindo and she is making arrangements for chemotherapy. She underwent port placement last week. She has some soreness in the breast incision but denies any axillary symptoms at this time. 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 delivery delivered Surgical History History of lumpectomy of left breast (12/03/24) Family History Brother Cancer Social History Household Members: Spouse, Family and Children Alcohol intake: never Patient Tobacco Use Status: Never used Tobacco service: No Current occupational status: unemployed Gender identity: Female Review of Systems Const All systems reviewed & are unremarkable except as noted in HPI and below Physical Exam Vital Signs: Last Vital Signs BP 112/62 01/15/25 15:23 BMI result Body Mass Index 28.1 Const General: cooperative and no acute distress Nutritional Appearance: well nourished Limitations: no limitations Chest Other: Left breast: Incision in left axilla and upper outer quadrant is clean, dry, and intact without redness or discharge. There is some scar retraction noted due to the volume loss. No hematoma or seroma is palpable. The left axillary incision is clean and intact. Chest/axillae images: 2 1. 2. Resp Effort & Inspection: normal respiratory effort, no audible wheezes, no cough and no respiratory distress Cardio Jugular venous distension: no JVD Skin Other: Warm, dry, no rash Extrem General: Yes no clubbing, cyanosis or edema Assessment & Plan Assessment & Plan (1) Invasive ductal carcinoma of left breast: Code(s): C50.912 - Malignant neoplasm of unspecified site of left female breast Category: Medical (2) Ductal carcinoma in situ of left breast: Code(s): D05.12 - Intraductal carcinoma in situ of left breast Category: Medical Plan 40-year-old female patient recently diagnosed with invasive ductal carcinoma with DCIS returning today 1 week following left breast lumpectomy with localizer and left axillary sentinel node biopsy. Pathology revealed a 2 cm invasive ductal carcinoma with DCIS. Margins were negative after revision performed at the primary procedure. Two of 4 sentinel nodes were positive for metastatic disease, (T1c N1a (sn) (AJCC stage 8th addition)). She is being evaluated by Dr. Galindo and will be starting chemotherapy soon. Examination today reveals well-healed incision with some scar retraction in the breast incision otherwise both incisions are clean and intact. I recommended follow-up examination in 3 months, sooner p.r.n.. Coding Level of Care Code Global (22978) Diagnoses Invasive ductal carcinoma of left breast C50.912 Ductal carcinoma in situ of left breast D05.12
[2025-01-15 15:23] VITALS: BP 112/62; BMI 28.1
--- OUTSIDE RECORDS SUMMARY | 2025-01-15 18:13 | XMS_ITS | Clinical Summary ---
Author Organization [employer] Address [address] [facility] [address] [place] [address] Care Team Providers Care Manager Investment Name Role Phone Kimberli Patel MD Primary Care Provider [phone] Allergies Active Allergy Reactions Criticality Noted Date Comments Pollen Extract 03/04/2023 Medications cholecalcifero l (Vitamin D-3) 50 MCG (1999) tabletIndicati ons:Vitamin D deficiency take 1 tablet by oral route every day 90 tablet 1 3 Active Diclofenac Sodium 1 % gel APPLY TWO GRAM TO THE AFFECTED AREA(s) TWICE DAILY IN THE MORNING AND AT BEDTIME NEEDED FOR PAIN 3 Active Blood Pressure kitIndications :Elevated blood pressure reading 1 Units in the morning. 1 kit 3 Active etonogestrel-e thinyl estradiol (NuvaRing) 0.12-0.015 MG/24HR vaginal ringIndication s:Uses control INSERT 1 RING VAGINALLY. LEAVE IN FOR THREE WEEKS THEN REMOVE 1 Ring. 11 5 Active etonogestrel-e thinyl estradiol (NuvaRing) 0.12-0.015 MG/24HR vaginal ringIndication s:Uses control INSERT 1 RING VAGINALLY. LEAVE IN FOR THREE WEEKS THEN REMOVE 1 Ring. 11 4 025 Discontinued Active Problems Problem Noted Date Diagnosed Date [...] Encounters Date Type Department Care Team Description 01/11/2025 Refill [facility] [address], [place] [phone] Kimberli Patel MD Uses control 01/03/2025 Orders Only [facility] External Provider, [facility] 11/22/2024 Telephone [facility] [address] [place], [place] [phone] Kimberli Patel MD MRI BREAST ORDER 11/21/2024 Telephone [facility] [address] [place], [place] [phone] Kimberli Patel MD 11/08/2024 Orders Only [facility] External Provider, [facility] 10/17/2024 Telephone [facility] [address], [place] [phone] Melissa Mejia, RN Results 10/17/2024 Telephone [facility] [address] [place] [address] Kimberli Patel MD from Last 3 Months [...] Procedure Name Priority Date/Time Associated Diagnosis Comments IR CVC INSERT TUNNEL W PRT/HYDROLOGY PROFESSOR Routine 01/03/2025 1:15 PM EST IR US GUIDE VENOUS ACCESS Routine 01/03/2025 1:15 PM EST HCG, QL, URINE Routine 01/03/2025 11:57 AM EST BI MM SURGICAL SPECIMEN Routine 12/03/2024 11:18 [...] of upper outer quadrant of left breast PROPHYLAXIS - ADULT Routine 03/18/2023 8 :00 AM EDT INTRAORAL - COMPLETE SERIES OF RADIOGRAPHIC IMAGES Routine 03/04/2023 8:00 AM EDT COMPREHENSIVE ORAL EVALUATION - NEW OR ESTABLISHED PATIENT Routine 03/04/2023 8:00 AM EDT THINPREP PAP AND HPV MRNA E6/E7 Routine 01/13/2021 1:37 PM EST from Last 3 Months or Most Recently Relevant to Health Maintenance Results * IR cvc insert tunnel w prt/spindle plumber (01/03/2025 1:15 PM EST) Anatomical Region Laterality Modality X-Ray Angiograph y 01/03/2025 1:15 PM EST Narrative 01/07/2025 3:08 PM EST ? [facility] ?[address] ?[place] [address] ?Interventional Radiology Rpt ? Signed ? Patient: Yeny Jackson V ?MR#: [id number] ?? [id number] ? : 1985 ?Acct:[id number] ? Age/Sex: 39 / F ?ADM Date: 01/03/25 ? Loc: HO.SSS ? Attending Dr: Cristina Galindo MD ? Ordering Physician: Cristina Galindo MD ?? Date of Service: 01/03/25 ?? Procedure(s): IR cvc insert tunnel w prt/spindle plumber ?? Accession Number(s): [id number] ? cc: Cristina Galindo MD; Kimberli Patel MD ? CLINICAL HISTORY: ?? Left breast cancer. The patient presents to interventional radiology ?? for placement of a port for chemotherapy. ? PROCEDURES: ?? 1. Real-time ultrasound-guided access into the right internal jugular ?? vein after documentation of selected vessel patency, and permanent ?? image storing in the patient records. ?? 2. Placement of a 6.0 fr single-lumen power port. ? CLINICIAN: ?? Guicho Martinez PA-C ? MEDICATIONS: ?? - Versed 1.5 mg, Fentanyl 75 mcg, Lidocaine 1% 10 mL SQ ?? -Antibiotics: Ancef 2g ?? -For additional details, please see nursing flowsheet. ? Complications: None. ?? Estimated blood loss: <5 ml ?? Specimens: None. ?? Contrast: None. ? Fluoroscopy time: 0.5 min ?? MODERATE SEDATION TIME: 32 min ? PROCEDURE NOTE: ?? The procedure, risks, benefits, and alternatives were carefully ?? explained to the patient and written informed consent was obtained. The ?? patient was placed supine on the fluoroscopy table. A timeout was ?? performed. The right neck and chest was prepped and draped in usual ?? sterile fashion. Maximum barrier technique was utilized. ? Local anesthesia was administered to the access site with 1% lidocaine. ?? Under ultrasound guidance, the right internal jugular vein was accessed ?? with a 5 fr micropuncture set. ??A 0.035 in wire was advanced into the ?? IVC. A peel-away sheath was advanced over the wire and into the SVC, ?? and the wire was removed. Next, subcutaneous lidocaine was administered ?? to the chest. The port pocket was created after the skin incision, ?? utilizing blunt dissection. Using blunt dissection, a subcutaneous ?? tunnel was created that connects from the port pocket to the venotomy ?? site. Through the peel-away sheath, the 6.0 fr port catheter was ?? placed. The catheter position was verified with fluoroscopy to be at ?? the superior vena cava/right atrial junction. The port was connected to ?? the catheter and was placed in the pocket. The venotomy site was closed ?? with a 3-0 Vicryl subcutaneous suture. The port incision site was ?? closed with interrupted 3-0 Vicryl subcutaneous sutures and surgical ?? glue. Prior to closing the skin, 1 g of Ancef solution was placed in ?? the pocket. ??The port was tested, flushed, and packed with heparin per ?? routine protocol. The patient tolerated the procedure well. ? The patient was stable after the procedure and was transferred to the ?? PACU. ? The procedure was performed under moderate sedation and with a ?? dedicated nurse with continuous monitoring of vital signs. ? A permanent image of the ultrasound the neck and fluoroscopic image of ?? the chest was saved and sent to PACS. ? FINDINGS: ?? 1. Patent right internal jugular vein ?? 2. Placement of a 6.0 fr single-lumen power port. ?? 3. Port flushes and aspirates very well with a 10 mL syringe. No ?? pneumothorax. ? IR/IR cvc insert tunnel w prt/spindle plumber ?? IMPRESSION: ?? Placement of a 6.0 fr single-lumen power port. ? PLAN: ?? - The patient will be discharged home when stable by sedation protocol. ?? - Port may be used immediately. ? This procedure was performed by Guicho Martinez PA-C, and directly ?? supervised by Dr. Bonner ? Electronically signed by: ??Ace Bonner MD ??01/07/2025 03:05 PM EST RP ? Dictated By: ?Guicho Martinez ? Signed By: ?<Electronically signed by Guicho Martinez in OV> ? 01/07/25 1505 ?<Electronically signed by Ace Bonner MD in OV> ? 01/07/25 1508 ? DD/ 1315 ? TD/TT: 01/03/25 1431 ? Laminating Machine Operator Helper: ? Procedure Note [place], Image - 01/07/2025 [place] [address] Interventional Radiology Rpt Signed Patient: Yeny Jackson R#: [id number] : 1985Acct:[id number] Age/Sex: 39 / FADM Date: 01/03/25 Loc: HO.[facility] Attending Dr: Cristina Galindo MD Ordering Physician: Cristina Galindo MD Date of Service: 01/03/25 Procedure(s): IR cvc insert tunnel w prt/spindle plumber Accession Number(s): [id number] cc: Cristina Galindo MD; Kimberli Patel MD CLINICAL HISTORY: Left breast cancer. The patient presents to interventional radiology for placement of a port for chemotherapy. PROCEDURES: 1. Real-time ultrasound-guided access into the right internal jugular vein after documentation of selected vessel patency, and permanent image storing in the patient records. 2. Placement of a 6.0 fr single-lumen power port. CLINICIAN: Guicho Martinez, PA-C MEDICATIONS: - Versed 1.5 mg, Fentanyl 75 mcg, Lidocaine 1% 10 mL SQ -Antibiotics: Ancef 2g -For additional details, please see nursing flowsheet. Complications: None. Estimated blood loss: <5 ml Specimens: None. Contrast: None. Fluoroscopy time: 0.5 min MODERATE SEDATION TIME: 32 min PROCEDURE NOTE: The procedure, risks, benefits, and alternatives were carefully explained to the patient and written informed consent was obtained. The patient was placed supine on the fluoroscopy table. A timeout was performed. The right neck and chest was prepped and draped in usual sterile fashion. Maximum barrier technique was utilized. Local anesthesia was administered to the access site with 1% lidocaine. Under ultrasound guidance, the right internal jugular vein was accessed with a 5 fr micropuncture set. A 0.035 in wire was advanced into the IVC. A peel-away sheath was advanced over the wire and into the SVC, and the wire was removed. Next, subcutaneous lidocaine was administered to the chest. The port pocket was created after the skin incision, utilizing blunt dissection. Using blunt dissection, a subcutaneous tunnel was created that connects from the port pocket to the venotomy site. Through the peel-away sheath, the 6.0 fr port catheter was placed. The catheter position was verified with fluoroscopy to be at the superior vena cava/right atrial junction. The port was connected to the catheter and was placed in the pocket. The venotomy site was closed with a 3-0 Vicryl subcutaneous suture. The port incision site was closed with interrupted 3-0 Vicryl subcutaneous sutures and surgical glue. Prior to closing the skin, 1 g of Ancef solution was placed in the pocket. The port was tested, flushed, and packed with heparin per routine protocol. The patient tolerated the procedure well. The patient was stable after the procedure and was transferred to the PACU. The procedure was performed under moderate sedation and with a dedicated nurse with continuous monitoring of vital signs. A permanent image of the ultrasound the neck and fluoroscopic image of the chest was saved and sent to PACS. FINDINGS: 1. Patent right internal jugular vein 2. Placement of a 6.0 fr single-lumen power port. 3. Port flushes and aspirates very well with a 10 mL syringe. No pneumothorax. IR/IR cvc insert tunnel w prt/spindle plumber IMPRESSION: Placement of a 6.0 fr single-lumen power port. PLAN: - The patient will be discharged home when stable by sedation protocol. - Port may be used immediately. This procedure was performed by Guicho Martinez PA-C, and directly supervised by Dr. Bonner Electronically signed by: Ace Bonner MD 01/07/2025 03:05 PM EST RP Dictated By: Guicho Martinez Signed By: <Electronically signed by Guicho Martinez in OV> 01/07/25 1505 <Electronically signed by Ace Bonner MD in OV> 01/07/25 1508 DD/ 1315 TD/TT: 01/03/25 1431 Laminating Machine Operator Helper: [facility] External Provider IMG IR PROCEDURES Final Result * IR US Guide - Venous Access (01/03/2025 1:15 PM EST) Anatomical Region Laterality Modality X-Ray Angiograph y 01/03/2025 1:15 PM EST Narrative 01/07/2025 3:08 PM EST ? [facility] ?[address] ?[place] [address] ?Interventional Radiology Rpt ? Signed ? Patient: Yeny Jackson V ?MR#: [id number] ?? [id number] ? : 1985 ?Acct:[id number] ? Age/Sex: 39 / F ?ADM Date: 01/03/25 ? Loc: HO.SSS ? Attending Dr: Cristina Galindo MD ? Ordering Physician: Cristina Galindo MD ?? Date of Service: 01/03/25 ?? Procedure(s): IR us guide venous access ?? Accession Number(s): [id number] ? cc: Cristina Galindo MD; Kimberli Patel MD ? CLINICAL HISTORY: ?? Left breast cancer. The patient presents to interventional radiology ?? for placement of a port for chemotherapy. ? PROCEDURES: ?? 1. Real-time ultrasound-guided access into the right internal jugular ?? vein after documentation of selected vessel patency, and permanent ?? image storing in the patient records. ?? 2. Placement of a 6.0 fr single-lumen power port. ? CLINICIAN: ?? Guicho Martinez PA-C ? MEDICATIONS: ?? - Versed 1.5 mg, Fentanyl 75 mcg, Lidocaine 1% 10 mL SQ ?? -Antibiotics: Ancef 2g ?? -For additional details, please see nursing flowsheet. ? Complications: None. ?? Estimated blood loss: <5 ml ?? Specimens: None. ?? Contrast: None. ? Fluoroscopy time: 0.5 min ?? MODERATE SEDATION TIME: 32 min ? PROCEDURE NOTE: ?? The procedure, risks, benefits, and alternatives were carefully ?? explained to the patient and written informed consent was obtained. The ?? patient was placed supine on the fluoroscopy table. A timeout was ?? performed. The right neck and chest was prepped and draped in usual ?? sterile fashion. Maximum barrier technique was utilized. ? Local anesthesia was administered to the access site with 1% lidocaine. ?? Under ultrasound guidance, the right internal jugular vein was accessed ?? with a 5 fr micropuncture set. ??A 0.035 in wire was advanced into the ?? IVC. A peel-away sheath was advanced over the wire and into the SVC, ?? and the wire was removed. Next, subcutaneous lidocaine was administered ?? to the chest. The port pocket was created after the skin incision, ?? utilizing blunt dissection. Using blunt dissection, a subcutaneous ?? tunnel was created that connects from the port pocket to the venotomy ?? site. Through the peel-away sheath, the 6.0 fr port catheter was ?? placed. The catheter position was verified with fluoroscopy to be at ?? the superior vena cava/right atrial junction. The port was connected to ?? the catheter and was placed in the pocket. The venotomy site was closed ?? with a 3-0 Vicryl subcutaneous suture. The port incision site was ?? closed with interrupted 3-0 Vicryl subcutaneous sutures and surgical ?? glue. Prior to closing the skin, 1 g of Ancef solution was placed in ?? the pocket. ??The port was tested, flushed, and packed with heparin per ?? routine protocol. The patient tolerated the procedure well. ? The patient was stable after the procedure and was transferred to the ?? PACU. ? The procedure was performed under moderate sedation and with a ?? dedicated nurse with continuous monitoring of vital signs. ? A permanent image of the ultrasound the neck and fluoroscopic image of ?? the chest was saved and sent to PACS. ? FINDINGS: ?? 1. Patent right internal jugular vein ?? 2. Placement of a 6.0 fr single-lumen power port. ?? 3. Port flushes and aspirates very well with a 10 mL syringe. No ?? pneumothorax. ? IR/IR us guide venous access ?? IMPRESSION: ?? Placement of a 6.0 fr single-lumen power port. ? PLAN: ?? - The patient will be discharged home when stable by sedation protocol. ?? - Port may be used immediately. ? This procedure was performed by Guicho Martinez PA-C, and directly ?? supervised by Dr. Bonner ? Electronically signed by: ??Ace Bonner MD ??01/07/2025 03:05 PM EST RP ? Dictated By: ?Guicho Martinez ? Signed By: ?<Electronically signed by Guicho Martinez in OV> ? 01/07/25 1505 ?<Electronically signed by Ace Bonner MD in OV> ? 01/07/25 1507 ? DD/ 1315 ? TD/TT: 01/03/25 1431 ? Laminating Machine Operator Helper: ? Procedure Note Rosa Luu - 01/07/2025 [place] [address] Interventional Radiology Rpt Signed Patient: Yeny Jackson [facility]3]#: [id number] : 1985Acct:[id number] Age/Sex: 39 / FADM Date: 01/03/25 Loc: HO.SSS Attending Dr: Cristina Galindo MD Ordering Physician: Cristina Galindo MD Date of Service: 01/03/25 Procedure(s): IR us guide venous access Accession Number(s): [id number] cc: Cristina Galindo MD; Kimberli Patel MD CLINICAL HISTORY: Left breast cancer. The patient presents to interventional radiology for placement of a port for chemotherapy. PROCEDURES: 1. Real-time ultrasound-guided access into the right internal jugular vein after documentation of selected vessel patency, and permanent image storing in the patient records. 2. Placement of a 6.0 fr single-lumen power port. CLINICIAN: Guicho Martinez PA-C MEDICATIONS: - Versed 1.5 mg, Fentanyl 75 mcg, Lidocaine 1% 10 mL SQ -Antibiotics: Ancef 2g -For additional details, please see nursing flowsheet. Complications: None. Estimated blood loss: <5 ml Specimens: None. Contrast: None. Fluoroscopy time: 0.5 min MODERATE SEDATION TIME: 32 min PROCEDURE NOTE: The procedure, risks, benefits, and alternatives were carefully explained to the patient and written informed consent was obtained. The patient was placed supine on the fluoroscopy table. A timeout was performed. The right neck and chest was prepped and draped in usual sterile fashion. Maximum barrier technique was utilized. Local anesthesia was administered to the access site with 1% lidocaine. Under ultrasound guidance, the right internal jugular vein was accessed with a 5 fr micropuncture set. A 0.035 in wire was advanced into the IVC. A peel-away sheath was advanced over the wire and into the SVC, and the wire was removed. Next, subcutaneous lidocaine was administered to the chest. The port pocket was created after the skin incision, utilizing blunt dissection. Using blunt dissection, a subcutaneous tunnel was created that connects from the port pocket to the venotomy site. Through the peel-away sheath, the 6.0 fr port catheter was placed. The catheter position was verified with fluoroscopy to be at the superior vena cava/right atrial junction. The port was connected to the catheter and was placed in the pocket. The venotomy site was closed with a 3-0 Vicryl subcutaneous suture. The port incision site was closed with interrupted 3-0 Vicryl subcutaneous sutures and surgical glue. Prior to closing the skin, 1 g of Ancef solution was placed in the pocket. The port was tested, flushed, and packed with heparin per routine protocol. The patient tolerated the procedure well. The patient was stable after the procedure and was transferred to the PACU. The procedure was performed under moderate sedation and with a dedicated nurse with continuous monitoring of vital signs. A permanent image of the ultrasound the neck and fluoroscopic image of the chest was saved and sent to PACS. FINDINGS: 1. Patent right internal jugular vein 2. Placement of a 6.0 fr single-lumen power port. 3. Port flushes and aspirates very well with a 10 mL syringe. No pneumothorax. IR/IR us guide venous access IMPRESSION: Placement of a 6.0 fr single-lumen power port. PLAN: - The patient will be discharged home when stable by sedation protocol. - Port may be used immediately. This procedure was performed by Guicho Martinez PA-C, and directly supervised by Dr. Bonner Electronically signed by: Ace Bonner MD 01/07/2025 03:05 PM EST RP Dictated By: Guicho Martinez Signed By: <Electronically signed by Guicho Martinez in OV> 01/07/25 1505 <Electronically signed by Ace Bonner MD in OV> 01/07/25 1507 DD/ 1315 TD/TT: 01/03/25 1431 Laminating Machine Operator Helper: [facility] External Provider IMG IR PROCEDURES Final Result * HCG, Qualitative, Urine (01/03/2025 11:57 AM EST) Only the most recent of2 resultswithin the time period is included. Urine NEGATIVE NEGATIVE [facility] Comment:This test was develo ped to detect early . Falsenegative results may occur after the 5th - 7th week ofpregnancy when using this test method. If clinicallyindicated, consider a serum hCG. 01/03/2025 11:5 7 AM EST 01/03/2025 12:14 PM EST Generic External Data Provider LAB URINE ORDERAB LES Final Result [facility] [address] [place] [phone] * BI MM SURGICAL SPECIMEN (12/03/2024 11:18 AM EST) Anatomical Region Laterality Modality Breast Bilateral Mammography 12/03/2024 11:1 8 AM EST Narrative 12/03/2024 3:12 PM EST ? [facility] ?[address] ?[place] [address] ? Mammography Report ? Signed ? Patient: Jackson,Yeny V ?MR#: [id number] ?? [id number] ? : 1985 ?Acct:[id number] ? Age/Sex: 39 / F ?ADM Date: 12/03/24 ? Loc: HO.SSS ? Attending Dr: Mariusz Lassiter MD ? Ordering Physician: Mariusz Lassiter MD ?Results: ? Date of Service: 12/03/24 ?Follow Up: ? Procedure(s): MM surgical specimen ?? Accession Number(s): [id number] ? cc: Mariusz Lassiter MD; Kimberli Patel MD ? Left axillary specimen radiograph demonstrates the butterfly clip and ?? the tag within the specimen. ? Left breast specimen radiograph demonstrates the coil clip and the tag ?? within the specimen. ? Electronically signed by: ??Dulce Richardson DO ??12/03/2024 03:09 PM EST ? Dictated By: ?Dulce Richardson DO ? Signed By: ?<Electronically signed by Dulce Richardson, DO in OV> ? 12/03/24 1509 ? DD/ 1118 ? TD/TT: 12/03/24 1450 ? Laminating Machine Operator Helper: ? Procedure Note Rosa Luu - 12/03/[address] [address] Mammography Report Signed Patient: Yeny Jackson R#: [id number] : 1985Acct:[id number] Age/Sex: 39 / FADM Date: 12/03/24 Loc: [facility] Attending Dr: Mariusz Lassiter MD Ordering Physician: Mariusz Lassiteresults: Date of Service: 12/03/24Follow Up: Procedure(s): MM surgical specimen Accession Number(s): [id number] cc: Mariusz Lassiter MD; Kimberli Patel MD [...] 12/03/24 1509 DD/ 1118 TD/TT: 12/03/24 1450 Laminating Machine Operator Helper: [facility] External Provider IMG BI PROCEDURES Final Result * Hematoxylin and Eosin Stain (12/03/2024 10:48 AM EST) Only the most recent of2 resultswithin the time period is included. 12/03/2024 10:4 8 AM EST 12/03/2024 10:57 AM EST [facility] - 12/06/2024 3:10 PM EST ----- ------- Name: Yeny Jackson V ?Age/Sex: 39/F ? : 1985 Unit#: [id number] ?? Attend Dr: Mariusz Lassiter MD ?Re12/03/24 ?Status: DEP SDC ? Location: HO.SSS ?Disch: ? ----- ------- SPEC : [id number] ?RECD: 12/03/24 ? STATUS: ??SOUT ? REQ NUM: [id number] ? ARNAUD: 12/03/24-8 ? SUBM DR: Mariusz Lassiter MD ? [...] V ?Age/Sex: 39/F ? : 1985 Unit#: [id number] ?? Attend Dr: Mariusz Lassiter MD ?Re12/03/24 ?Status: DEP SDC ? Location: HO.SSS ?Disch: ? ----- ------- SPEC : [id number] ?RECD: 12/03/24-1056 ? STATUS: ??SOUT ? REQ NUM: [id number] ? ARNAUD: 12/03/24-1047 ? SUBM DR: Mariusz [...] Lymph nodes ? Number examined: ?4 ? [place] nodes: ?3 ? Axillary nodes: ?1 ? Number involved: ? With macrometastases: ?2 ? With micrometastases: ?0 ? With isolated tumor cells: ?0 ? Extranodal extension: ?Present ? Size of largest met. deposit: ?? 2.0 cm ?? Treatment effect ? Breast: ? Not identified ? Lymph nodes: ?Not identified ?? TNM: ? pT1c N1a(sn) ?? Ancillary studies: ?ER positive, WA positive, HER2 negative, low proliferation (see ?? S25-12). 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 ??Microscopic sections reviewed. ? CONTINUED ON NEXT PAGE ----- ------- Name: Yeny Jackson V ?Age/Sex: 39/F ? : 1985 Unit#: [id number] ?? Attend Dr: Mariusz Lassiter MD ?Re12/03/24 ?Status: DEP SDC ? Location: HO.SSS ?Disch: ? ----- ------- SPEC : [id number] ?RECD: 12/03/24-1056 ? STATUS: ??SOUT ? REQ NUM: [id number] ? ARNAUD: 12/03/24 ? SUBM DR: Mariusz [...] lumpectomy ?? B. Posterior margin ?? C. [place] lymph node #1 (4,500) ?? D. [place] lymph node #2 (3,800) ?? E. Tag lymph node (Sent fresh) ?? F. [place] lymph node #3 (1,125) ?? G. Anterior [...] V ?Age/Sex: 39/F ? : 1985 Unit#: [id number] ?? Attend Dr: Mariusz Lassiter MD ?Re12/03/24 ?Status: DEP SDC ? Location: HO.SSS ?Disch: ? ----- ------- SPEC : [id number] ?RECD: 12/03/24 ? STATUS: ??SOUT ? REQ NUM: [id number] ? ARNAUD: 12/03/24 ? SUBM DR: Mariusz [...] V ?Age/Sex: 39/F ? : 1985 Unit#: [id number] ?? Attend Dr: Mariusz Lassiter MD ?Re12/03/24 ?Status: DEP SDC ? Location: HO.SSS ?Disch: ? ----- ------- SPEC : [id number] ?RECD: 12/03/24-1056 ? STATUS: ??SOUT ? REQ NUM: [id number] ? ARNAUD: 12/03/24-1047 ? SUBM DR: Mariusz [...] Copies To: ?? Mariusz Lassiter MD ?? [facility] ?? [address] [place] [address] ??[address] ?? [place] [address] ?? [phone] ?? Kimberli Patel MD ?? [address] ?? [place] ?? [phone] ? CONTINUED ON NEXT PAGE ----- ------- Name: Yeny Jackson V ?Age/Sex: 39/F ? : 1985 Unit#: [id number] ?? Attend Dr: Mariusz Lassiter MD ?Re12/03/24 ?Status: DEP [facility] ? Location: HO.SSS ?Disch: ? ----- ------- SPEC : [id number] ?RECD: 12/03/24 ? STATUS: ??SOUT ? REQ NUM: [id number] ? ARNAUD: 12/03/24 ? SUBM DR: Mariusz [...] Provider LAB BLOOD ORDERAB LES Final Result [facility] [address] [place] [address] [phone] * NM SENTINEL NODE W IMAGING (12/03/2024 7:46 AM EST) Anatomical Region Laterality Modality Nuclear Medicine 12/03/2024 7:46 AM EST Narrative 12/03/2024 1:23 PM EST ? [facility] ?[address] ?[place] [address] ?Nuclear Medicine Report ? Signed ? Patient: Jackson,Yeny V ?MR#: [id number] ?? [id number] ? : 1985 ?Acct:[id number] ? Age/Sex: 39 / F ?ADM Date: 12/03/ ? Loc: HO.SSS ? Attending Dr: Mariusz Lassiter MD ? Ordering Physician: Mariusz Lassiter MD ?? Date of Service: 12/03/24 ?? Procedure(s): NM sentinel node w imaging ?? Accession Number(s): [id number] ? cc: Mariusz Lassiter MD; Kimberli Patel [...] DD/ 0746 ? TD/TT: 12/03/24 0915 ? Laminating Machine Operator Helper: MSM ? Procedure Note Bell, Rosa - 12/03/2024 [place] [address] Nuclear Medicine Report Signed Patient: Yeny Jackson R#: [id number] : 1985Acct:[id number] Age/Sex: 39 / FADM Date: 12/03/24 Loc: .[facility] Attending Dr: Mariusz Lassiter MD Ordering Physician: Mariusz Lassiter MD Date of Service: 12/03/24 Procedure(s): NM sentinel node w imaging Accession Number(s): [id number] cc: Mariusz Lassiter MD; Kimberli Patel MD [...] 12/03/24 1320 DD/ 0746 TD/TT: 12/03/24 0915 Laminating Machine Operator Helper: ELLA [facility] External Provider IMG NM PROCEDURES Final Result * BI Mammogram Diagnostic Tomosynthesis Left (11/29/2024 9:58 AM EST) Only the most recent of2 resultswithin the time period is included. Anatomical Region Laterality Modality Breast Left Mammography 11/29/2024 9:58 AM EST Narrative 11/30/2024 12:43 PM EST ? [facility] [place] ? [address] ?[place] [address] ? Mammography Report ? Signed ? Patient: JacksonYeny V ?MR#: [id number] ?? [id number] ? : 1985 ?Acct:[id number] ? Age/Sex: 39 / F ?ADM Date: /23/25 ? Loc: HO.MAMMO ? Attending Dr: Mariusz Lassiter MD ? Ordering Physician: Mariusz Lassiter MD ?Results: 1Nega ?? tive ? Date of Service: 11/29/24 ?Follow Up: 1 Year From Orig ?? inal Mammogram ? Procedure(s): MM tomosynthesis diagnostic LT ?? Accession Number(s): [id number] ? cc: Mariusz Lassiter MD; Kimberli Patel [...] signed by Dulce Richardson, in OV> ? 11/30/24 1240 ? DD/ 0958 ? TD/TT: 11/29/24 1018 ? Laminating Machine Operator Helper: ? Procedure Note Donotuseinterpreter, Image - [facility]/30/[facility] [address] [place] [address] Mammography Report Signed Patient: Yeny Jackson VMR#: [id number] : 1985Acct:[id number] Age/Sex: 39 / FADM Date: 11/29/24 Loc: MAMMO Attending Dr: Mariusz Lassiter MD Ordering Physician: Mariusz Lassiteresults: 1Nega tive Date of Service: 11/29/24Follow Up: 1 Year From Orig inal Mammogram Procedure(s): MM tomosynthesis diagnostic LT Accession Number(s): [id number] cc: Mariusz Lassiter MD; Kimberli Patel MD [...] 11/30/24 1240 DD/ 0958 TD/TT: 11/29/24 1018 Laminating Machine Operator Helper: [facility] External Provider IMG BI PROCEDURES Final Result * BREAST NDL CORE BIO EA ADD (11/08/2024 10:00 AM EST) Anatomical Region Laterality Modality Abdomen Ultrasound 11/08/2024 10:0 0 AM EST Narrative 11/08/2024 1:04 PM EST ? [facility] ? [address] ?[place] [address] ? Ultrasound Report ? Signed with Addenda ? Patient: Jackson,Yeny V ?MR#: [id number] ?? [id number] ? : 1985 ?Acct:[id number] ? Age/Sex: 39 / F ?ADM Date: 01/02/25 ? Loc: HO.MAMMO ? Attending Dr: Mariusz Lassiter MD ? Ordering Physician: Mariusz Lassiter MD ?? Date of Service: 11/08/24 ?? Procedure(s): US breast ndl core bio ea add ?? Accession Number(s): [id number] ? cc: Mariusz Lassiter MD; Kimberli Patel [...] PM EST ? US/US breast ndl core bio ea [...] DD/ 1000 ? TD/TT: 11/08/24 1115 ? Laminating Machine Operator Helper: ? Procedure Note Bell, Image - 12/02/2024 [place] [facility] [address] [place] [address] Ultrasound Report Signed with Addenda Patient: Yeny Jackson R#: [id number] : 1985Acct:[id number] Age/Sex: 39 / FADM Date: 11/08/24 Loc: HO.MAMMO Attending Dr: Mariusz Lassiter MD Ordering Physician: Mariusz Lassiter MD Date of Service: 11/08/24 Procedure(s): US breast ndl core bio ea add Accession Number(s): [id number] cc: Mariusz Lassiter MD; Kimberli Patel MD [...] 11/19/24 1342 DD/ 1000 TD/TT: 11/08/24 1115 Laminating Machine Operator Helper: [facility] External Provider IMG US PROCEDURES Edited Result - Final * BI US Breast Limited Right (11/08/2024 10:00 AM EST) Anatomical Region Laterality Modality Breast Right Ultrasound 11/08/2024 10:0 0 AM EST Narrative 11/08/2024 12:15 PM EST ? [facility] ? [address] ?[place] [address] ? Ultrasound Report ? Signed ? Patient: Jackson,Yeny V ?MR#: [id number] ?? [id number] ? : 1985 ?Acct:[id number] ? Age/Sex: 39 / F ?ADM Date: 11/08/24 ? Loc: HO.MAMMO ? Attending Dr: Mariusz Lassiter MD ? Ordering Physician: Mariusz Lassiter MD ?? Date of Service: 11/08/24 ?? Procedure(s): US breast RT limited mamm only ?? Accession Number(s): [id number] ? cc: Mariusz Lassiter MD; Kimberli Patel [...] ??Dulce Richardson DO ??11/08/2024 12:12 PM EST ? Dictated By: ?Dulce Richardson DO ? Signed By: ?<Electronically signed by Dulce Richardson, DO in OV> ? 11/08/24 1212 ? DD/ 1000 ? TD/TT: 11/08/24 1115 ? Laminating Machine Operator Helper: ? Procedure Note Bell, Image - 11/20/2024 [place] [facility] [address] [place] [address] Ultrasound Report Signed Patient: Yeny Jackson R#: [id number] : 1985Acct:[id number] Age/Sex: 39 / FADM Date: 11/08/24 Loc: HO.MAMMO Attending Dr: Mariusz Lassiter MD Ordering Physician: Mariusz Lassiter MD Date of Service: 11/08/24 Procedure(s): US breast RT limited mamm only Accession Number(s): [id number] cc: Mariusz Lassiter MD; Kimberli Patel MD [...] 11/08/24 1212 DD/ 1000 TD/TT: 11/08/24 1115 Laminating Machine Operator Helper: [facility] External Provider IMG US PROCEDURES Edited Result - Final * BI MR Guided Breast Biopsy Left (11/08/2024 10:00 AM EST) Anatomical Region Laterality Modality Breast Left Magnetic Resonan ce 11/08/2024 10:0 0 AM EST Narrative 11/08/2024 1:04 PM EST ? [facility] [place] ? [address] ?[place] [address] ? Ultrasound Report ? Signed with Addenda ? Patient: Jackson,Yeny V ?MR#: [id number] ?? [id number] ? : 1985 ?Acct:[id number] ? Age/Sex: 39 / F ?ADM Date: /02/25 ? Loc: HO.MAMMO ? Attending Dr: Mariusz Lassiter MD ? Ordering Physician: Mariusz Lassiter MD ?? Date of Service: 11/08/24 ?? Procedure(s): US breast ndl core biopsy LT ?? Accession Number(s): [id number] ? cc: Mariusz Lassiter MD; Kimberli Patel [...] ??11/19/2024 01:42 PM EST ?? RP ? ORIGINAL REPORT ? EXAMINATION: ?? ULTRASOUND [...] DD/ 1000 ? TD/TT: 11/08/24 1115 ? Laminating Machine Operator Helper: ? Procedure Note Donotuseinterpreter, Image - 12/02/2024 [place] [facility] [address] [place] [address] Ultrasound Report Signed with Matilde Patient: Yeny Jackson VMR#: [id number] : 1985Acct:[id number] Age/Sex: 39 / FADM Date: 11/08/24 Loc: HO.MAMMO Attending Dr: Mariusz Lassiter MD Ordering Physician: Mariusz Lassiter MD Date of Service: 11/08/24 Procedure(s): US breast ndl core biopsy LT Accession Number(s): [id number] cc: Mariusz Lassiter MD; Kimberli Patel MD [...] Dulce Richardson DO 11/19/2024 01:42 PM EST Addendum Dictated By: Dulce Richardson DO Addendum [...] 11/19/24 1342 DD/ 1000 TD/TT: 11/08/24 1115 Laminating Machine Operator Helper: [facility] External Provider IMG MRI PROCEDURES Edited Result - Final * BI MR Breast w and w/o Contrast Bilateral (11/02/2024 3:19 PM EST) Anatomical Region Laterality Modality Breast Bilateral Magnetic Resonan ce 11/02/2024 3:19 PM EST Narrative 11/08/2024 12:17 PM EST ? [facility] ?[address] ?[place], [place] [address] ? Magnetic Resonance Report ? Signed ? Patient: Jackson,Yeny V ?MR#: [id number] ?? [id number] ? : 1985 ?Acct:[id number] ? Age/Sex: 39 / F ?ADM Date: 11/02/24 ? Loc: HO.MRI ? Attending Dr: Kimberli Patel MD ? Ordering Physician: Kimberli Patel MD ?? Date of Service: 11/02/24 ?? Procedure(s): MR breast BI wo/w con ?? Accession Number(s): [id number] ? cc: Kimberli Patel MD ? EXAMINATION: [...] ??Dulce Richardson DO ??11/08/2024 12:14 PM EST ?? RP ? Dictated By: ?Dulce Richardson DO ? Signed By: ?<Electronically signed by Dulce Richardson, DO in OV> ? 11/08/24 1214 ? DD/ 1519 ? TD/TT: 11/02/24 1645 ? Laminating Machine Operator Helper: ? Procedure Note Donotuseinterpreter, Image - 11/08/[address] [address] Magnetic Resonance Report Signed Patient: Yeny Jackson VMR#: [id number] : 1985Acct:[id number] Age/Sex: 39 / FADM Date: 11/02/24 Loc: HO.MRI Attending Dr: Kimberli Patel MD Ordering Physician: Kimberli Patel MD Date of Service: 11/02/24 Procedure(s): MR breast BI wo/w con Accession Number(s): [id number] cc: Kimberli Patel MD EXAMINATION: MR BREAST [...] Dulce Richardson DO 11/08/2024 12:14 PM EST Dictated By: Dulce Richardson DO Signed By: <Electronically signed by Dulce Richardson DO in OV> 11/08/24 1214 DD/ 1519 TD/TT: 11/02/24 1645 Laminating Machine Operator Helper: Kimberli Patel MD [facility] MRI PROCEDURES Edited Res ult - Final * THINPREP PAP AND HPV mRNA E6/E7 (01/13/2021 1:37 PM EST) Clinical Information: None given [facility] COMMENT SEE COMMENT [facility] ON [...] historic and ?? current clinical information. ?? Nursing Faculty: SEE COMMENT [facility] Comment: JXM, CT(ASCP) CT screening location: [address] ??[address] HPV nRNA E6/E7 Not Detected Not Detected [facility] Comment: Methodology: Sliver Lap Machine Tender-Mediated Amplification This assay detects E6/E7 viral messenger RNA (mRNA) from 14 high-risk HPV types (16,18,31,33,35,39,45,51,52,56,58,59,66,68). ? The analytical performance characteristics of this assay have been determined by [employer]. The modifications have not been cleared or approved by the FDA. This assay has been validated pursuant to the CLIA regulations and is used for clinical purposes. ?? For additional information, please refer to http://education.[employer]/faq/JQF824o6 (This link if provided for information/ educational purposes only.) Interpretation/Re sult: Negative for intraepithelial lesion or malignancy. [facility] LMP: NONE GIVEN FOUNDATIO N [...] Dumont CNM LAB PATHOLOGY ORDERABLES Final Result [facility] [address] from Last 3 Months or Most Recently Relevant to Health Maintenance Insurance [employer] [facility] - HSN FULL (MEDICAID) Care Teams Manager Investment Relationship Specialty Start Date End Date Kimberli Patel MD [address] [place] [address] PCP - General Family Medicine 11/24/21
--- OUTSIDE RECORDS SUMMARY | 2025-01-15 18:13 | XMS_ITS | Encounter Summary ---
Author Organization [facility] Address [address] [facility] [address]t [place] [address] Care Team Providers Care Keg Washer Name Role Phone Kimberli Patel MD Primary Care Provider [phone] Encounter Details Date Type Department Care Team (Latest Contact Info) Description 08/10/2019 Abstract [facility] CONVERSIONS Dental, Provider, DDS Social History Tobacco [...] on filedocumented in this encounter Care Teams Keg Washer Relationship Specialty Start Date End Date Kimberli Patel MD [address] [place] [address] PCP - General Family Medicine 11/24/21 documented as of this encounter
--- OUTSIDE RECORDS SUMMARY | 2025-01-15 18:13 | XMS_ITS | Encounter Summary ---
Author Organization [employer] Address [address] 7[address] [place] [address] Care Team Providers Care Psychiatric Registered Nurse Name Role Phone Kimberli Patel MD Primary Care Provider [phone] Encounter Details Date Type Department Care Team ([facility] Contact Info) Description 01/03/2025 Orders Only [facility] External Provider, [facility] Social History Tobacco Use Types Packs/Day [...] Diagnosis Comments IR CVC INSERT TUNNEL W PRT/VOICE WRITING REPORTER Routine 01/03/2025 1:15 PM EST IR US GUIDE VENOUS ACCESS Routine 01/03/2025 1:15 PM EST documented in this encounter Results * IR cvc insert tunnel w prt/assistant grocery (01/03/2025 1:15 PM EST) Anatomical Region Laterality Modality X-Ray Angiograph y 01/03/2025 1:15 PM EST Narrative 01/07/2025 3:08 PM EST ? [facility] ?[address] ?[place] [address] ?Interventional Radiology Rpt ? Signed ? Patient: Yeny Jackson V ?MR#: [id number] ?? [id number] ? : 1985 ?Acct:[id number] ? Age/Sex: 39 / F ?ADM Date: 01/03/25 ? Loc: HO.SSS ? Attending Dr: Cristina Galindo MD ? Ordering Physician: Cristina Galindo MD ?? Date of Service: 01/03/25 ?? Procedure(s): IR cvc insert tunnel w prt/assistant grocery ?? Accession Number(s): [id number] ? cc: Cristina Galindo MD; Kimberli Patel [...] pneumothorax. ? IR/IR cvc insert tunnel w prt/assistant grocery ?? IMPRESSION: ?? Placement of a 6.0 [...] DD/ 1315 ? TD/TT: 01/03/25 1431 ? Slope Hoist Operator: ? Procedure Note Bell, Image - 01/07/2025 [place] [address] Interventional Radiology Rpt Signed Patient: Yeny Jackson R#: [id number] : 1985Acct:[id number] Age/Sex: 39 / FADM Date: 01/03/25 Loc: HO.SSS Attending Dr: Cristina Galindo MD Ordering Physician: Cristina Galindo MD Date of Service: 01/03/25 Procedure(s): IR cvc insert tunnel w prt/assistant grocery Accession Number(s): [id number] cc: Cristina Galindo MD; Kimberli Patel MD [...] No pneumothorax. IR/IR cvc insert tunnel w prt/assistant grocery IMPRESSION: Placement of a 6.0 fr single-lumen [...] 01/07/25 1508 DD/ 1315 TD/TT: 01/03/25 1431 Slope Hoist Operator: [facility] External Provider IMG IR PROCEDURES Final Result * IR US Guide - Venous Access (01/03/2025 1:15 PM EST) Anatomical Region Laterality Modality X-Ray Angiograph y 01/03/2025 1:15 PM EST Narrative 01/07/2025 3:08 PM EST ? [facility] ?[address] ?[place] [address] ?Interventional Radiology Rpt ? Signed ? Patient: Yeny Jackson V ?MR#: [id number] ?? [id number] ? : 1985 ?Acct:[id number] ? Age/Sex: 39 / F ?ADM Date: 01/03/25 ? Loc: HO.SSS ? Attending Dr: Cristina Galindo MD ? Ordering Physician: Cristina Galindo MD ?? Date of Service: 01/03/25 ?? Procedure(s): IR us guide venous access ?? Accession Number(s): [id number] ? cc: Cristina Galindo MD; Kimberli Patel [...] DD/ 1315 ? TD/TT: 01/03/25 1431 ? Slope Hoist Operator: ? Procedure Note Rosa Luu - 01/07/2025 [place] [address] Interventional Radiology Rpt Signed Patient: Yeny Jackson R#: [id number] : 1985Acct:[id number] Age/Sex: 39 / FADM Date: 01/03/25 Loc: HO.SSS Attending Dr: Cristina Galindo MD Ordering Physician: Cristina Galindo MD Date of Service: 01/03/25 Procedure(s): IR us guide venous access Accession Number(s): [id number] cc: Cristina Galindo MD; Kimberli Patel MD [...] 01/07/25 1507 DD/ 1315 TD/TT: 01/03/25 1431 Slope Hoist Operator: [facility] External Provider IMG IR PROCEDURES Final Result documented in this encounter Visit Diagnoses Not on filedocumented in this encounter Additional Health Concerns Assessment Noted Time PHQ-9 Depression Total Score: 0 01/04/20 23 4:04 PM EST documented as of this encounter Care Teams Psychiatric Registered Nurse Relationship Specialty Start Date End Date Kimberli Patel MD [address] [place] [address] PCP - General Family Medicine 11/24/21 documented as of this encounter
--- OUTSIDE RECORDS SUMMARY | 2025-01-15 18:13 | XMS_ITS | Encounter Summary ---
Author Organization [employer] Address [address] [facility] 7t [place] [address] Care Team Providers Care Spray Drier Name Role Phone Kimberli Patel MD Primary Care Provider [phone] Reason for Visit * Reason Comments Med Refill Encounter Details Date Type Department Care Team ([facility] Contact Info) Description 01/11/2025 Refill [facility] [address], [place] [phone] Kimberli Patel MD [address] [place] [address] Uses control Social History Tobacco Use Types Packs/Day Years [...] as of this encounter Visit Diagnoses Diagnosis Uses control documented in this encounter Additional Health Concerns Assessment Noted Time PHQ-9 Depression Total Score: 0 01/04/20 23 4:04 PM EST documented as of this encounter Care Teams Spray Drier Relationship Specialty Start Date End Date Kimberli Patel MD [address] [place] [address] PCP - General Family Medicine 11/24/21 documented as of this encounter
== END 2025-01-15 15:30 | disposition home or self-care (01) ==
LOC: HO.HGS 14:53
PROVIDERS: PCP Family Medicine; Visit Provider Surgery
DX: C50.912 Malignant neoplasm of unspecified site of left female breast (principal); D05.12 Intraductal carcinoma in situ of left breast
CPT/HCPCS: 99024

== ENCOUNTER → 2025-01-15 14:52 | Outpatient (BNVA) | payer MEDICAID, OTHER, SELFPAY | PROVIDERS: PCP Family Medicine; Visit Provider Surgery | DX: D05.12 Intraductal carcinoma in situ of left breast (principal) | CPT/HCPCS: 99212 ==

== ENCOUNTER 2025-04-18 15:41 | Outpatient (AMB) | payer SELFPAY ==
--- NOTE | 2025-04-18 15:42 | MHC.OFFVIS ---
Vital Signs 04/18/25 15:48 Height 5 ft 1 in Weight 155 lb 4 oz BMI 29.3 BP 135/79 Blood Pressure Location Lt brachial Position Sitting Respiration 102 H Intake Visit Reasons: 3 mth f.u.S/P Lt brst lumpec w/locali & Lt. SN bx Intake Note: Patient is seen in office for 3 month follow up visit, breast exam. 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 under the axilla mm:11/29/24 Check Scaler Required: No Community Engagement Leader: Community Engagement Leader Present Accompanied by: Self / Same As Patient Allergies No Known Allergies [No Known Allergies*] Allergy (Unverified 04/18/25 15:43) Medication List - Last Reconciled 04/18/25 by Mariusz Lassiter MD calcium carbonate-vitamin D3 500 mg-10 mcg (400 unit) (Calcium 500 + D) 1 tab PO DAILY dexamethasone 2 mg PO BID ibuprofen 600 mg PO Q8H PRN ondansetron 8 mg PO Q8H PRN HPI Comments Details: 40-year-old female patient presenting with a 2 month history of a palpable mass located in the left breast at the outer quadrant. She denies a family history of breast cancer. She is . She underwent evaluation with a mammogram bilateral and ultrasound left breast which confirmed a density in the 3 o'clock position and axilla felt to be suspicious for malignancy. She underwent ultrasound-guided core biopsy on 11/08/2024 at the [facility]. 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 Biopsy of a left axillary node revealed fibrovascular tissue only with no lymph node or breast tissue present for evaluation. Immunohistochemical stains: Estrogen receptor positive, progesterone receptor positive, HER2 Ruth negative, Ki-67 low. She underwent left breast lumpectomy with sentinel node biopsy on 12/03/2024. Final pathology revealed invasive ductal carcinoma, grade 2, 2 cm extending to the anterior margin within microns of the inferior and posterior margin. 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 Additional margins of the anterior, posterior and inferior margin were negative for additional carcinoma. Two of 4 lymph nodes were positive for metastatic carcinoma. PT1c N1a (sn) (AJCC stage 8th edition). She was evaluated by Dr. Galindo and she subsequently underwent chemotherapy with Taxotere and cyclophosphamide 4 cycles which she has now completed. She is awaiting radiation therapy at [facility]. 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 delivery delivered Surgical History History of lumpectomy of left breast (12/03/24) Family History Brother Cancer Social History Household Members: Spouse, Family and Children Alcohol intake: never Patient Tobacco Use Status: Never used Tobacco service: No Current occupational status: unemployed Gender identity: Female Review of Systems Const All systems reviewed & are unremarkable except as noted in HPI and below Physical Exam Vital Signs: Last Vital Signs Resp 102 H 04/18/25 15:48 BP 135/79 04/18/25 15:48 BMI result Body Mass Index 29.3 Const General: cooperative and no acute distress Nutritional Appearance: well nourished Limitations: no limitations Chest Other: Left breast: Incision in left axilla and upper outer quadrant is clean, dry, and intact without redness or discharge. There is some scar retraction noted due to the volume loss. No hematoma or seroma is palpable. The left axillary incision is clean and intact. Right breast with no skin change, nipple retraction, nipple discharge, palpable mass or enlarged lymph nodes. Chest/axillae images: 1. Resp Effort & Inspection: normal respiratory effort, no audible wheezes, no cough and no respiratory distress Cardio Jugular venous distension: no JVD Skin Other: Warm, dry, no rash Extrem General: Yes no clubbing, cyanosis or edema Assessment & Plan Assessment & Plan (1) Invasive ductal carcinoma of left breast: Code(s): C50.912 - Malignant neoplasm of unspecified site of left female breast Category: Medical (2) Ductal carcinoma in situ of left breast: Code(s): D05.12 - Intraductal carcinoma in situ of left breast Category: Medical Plan 40-year-old female patient recently diagnosed with invasive ductal carcinoma with DCIS returning today 1 week following left breast lumpectomy with localizer and left axillary sentinel node biopsy. Pathology revealed a 2 cm invasive ductal carcinoma with DCIS. Margins were negative after revision performed at the primary procedure. Two of 4 sentinel nodes were positive for metastatic disease, (T1c N1a (sn) (AJCC stage 8th addition)). She completed chemotherapy under the direction of Dr. Galindo in his awaiting radiation therapy at [facility]. Exam today revealed no evidence of recurrent disease with a well-healed incision in the left breast. I recommended follow-up examination in approximately 6 months, sooner PRN. Coding Level of Care Code Est Pt Level 3 (55327) Complex EM visit Add On G2211 Diagnoses Invasive ductal carcinoma of left breast C50.912 Ductal carcinoma in situ of left breast D05.12
[2025-04-18 15:48] VITALS: BP 135/79; RESP 102; BMI 29.3
--- OUTSIDE RECORDS SUMMARY | 2025-04-18 18:05 | XMS_ITS | Encounter Summary ---
Author Organization [employer] Address [address] [facility] 7t [place] [address] Care Team Providers Care Highway Safety Engineer Name Role Phone Kimberli Patel MD Primary Care Provider [phone] Encounter Details Date Type Department Care Team (Latest Contact Info) Description 08/10/2019 Abstract [facility] CONVERSIONS Dental, Provider, DDS Social History [...] on filedocumented in this encounter Care Teams Highway Safety Engineer Relationship Specialty Start Date End Date Kimberli Patel MD [address] [place] [id number] PCP - General Family Medicine 11/24/21 documented as of this encounter
== END 2025-04-18 15:58 | disposition home or self-care (01) ==
LOC: HO.HGS 15:41
PROVIDERS: PCP Family Medicine; Visit Provider Surgery
DX: C50.912 Malignant neoplasm of unspecified site of left female breast (principal)
CPT/HCPCS: 99213; G2211

== ENCOUNTER → 2025-04-18 15:41 | Outpatient (BNVA) | payer MEDICAID, OTHER, SELFPAY | PROVIDERS: PCP Family Medicine; Visit Provider Surgery | DX: D05.12 Intraductal carcinoma in situ of left breast (principal); Z98.890 Other specified postprocedural states | CPT/HCPCS: 99212 ==

== ENCOUNTER 2025-11-05 15:33 | Outpatient (AMB) | payer SELFPAY ==
--- NOTE | 2025-11-05 15:55 | A.OFFVIS_ITS ---
Vital Signs 11/05/25 16:00 Height 5 ft 1 in Weight 154 lb BMI 29.1 BP 137/82 Blood Pressure Location Rt brachial Position Sitting Pulse 95 Intake Visit Reasons: 3 month f/u S/P Lt brst lumpectomy Intake Note: Patient is seen in office for 3 month follow up visit, breast exam. Pt c/o: reports hard lump left breast, denies redness or hot to the touch. mm:11/29/24 Hydraulics Engineer Required: Yes Hydraulics Engineer Language: Vietnamese Hydraulics Engineer Services: Hydraulics Engineer Offered & Declined Accompanied by: Self / Same As Patient Allergies Seasonal Allergies Allergy (Verified 11/05/25 16:01) Sneezing Medication List - Last Reconciled 11/05/25 by Mariusz Lassiter MD calcium carbonate-vitamin D3 500 mg-10 mcg (400 unit) (Calcium 500 + D) 1 tab PO DAILY ibuprofen 600 mg PO Q8H PRN tamoxifen 20 mg PO DAILY HPI Comments Details: 40-year-old female patient returning for breast cancer follow up examination. Diagnostic mammogram on 10/16/2024 revealed a density in the 3 o'clock position of the left breast felt to be suspicious for malignancy. 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 Biopsy of the left axillary node revealed fibrovascular tissue only with no lymph node breast tissue present for evaluation. The breast cancer was ER positive, TN positive, HER2 Ruth negative, Ki-67 low. She underwent left breast lumpectomy with sentinel node biopsy on 12/03/2024. Final pathology revealed invasive ductal carcinoma grade 2, 2 cm extending to the anterior margin within microns of the inferior and posterior margin. Also noted was ductal carcinoma in-situ grade 2 with negative margins greater than 2 mm in all margins. Additional margins of the anterior, posterior and inferior margins were all negative for additional carcinoma. Two of 4 lymph nodes were positive for metastatic carcinoma (pT1c N1a (sn) AJCC stage 8th edition). She was evaluated by Dr. Galindo and underwent chemotherapy with Taxotere and cyclophosphamide for 4 cycles. This was followed by radiation therapy at [facility]. She is now on tamoxifen and vitamin-D, and tolerating this well. She is now due for her annual mammogram. [facility] Medical History 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 delivery delivered Surgical History History of lumpectomy of left breast (12/03/24) Family History Brother Cancer Social History Household Members: Spouse, Family and Children Alcohol intake: never Patient Tobacco Use Status: Never used Tobacco service: No Current occupational status: unemployed Gender identity: Female Review of Systems Const All systems reviewed & are unremarkable except as noted in HPI and below Physical Exam Vital Signs: Last Vital Signs Pulse 95 11/05/25 16:00 BP 137/82 11/05/25 16:00 BMI result Body Mass Index 29.1 Const General: cooperative and no acute distress Nutritional Appearance: well nourished Limitations: no limitations Chest Other: Left breast: Incision in left axilla and upper outer quadrant is clean, dry, and intact without redness or discharge. There is some scar retraction noted due to the volume loss. No hematoma or seroma is palpable. The left axillary incision is clean and intact. Right breast with no skin change, nipple retraction, nipple discharge, palpable mass or enlarged lymph nodes. Resp Effort & Inspection: normal respiratory effort, no audible wheezes, no cough and no respiratory distress Cardio Jugular venous distension: no JVD Skin Other: Warm, dry, no rash Extrem General: Yes no clubbing, cyanosis or edema Assessment & Plan Assessment & Plan (1) Ductal carcinoma in situ of left breast: Code(s): D05.12 - Intraductal carcinoma in situ of left breast Category: Medical (2) Invasive ductal carcinoma of left breast: Code(s): C50.912 - Malignant neoplasm of unspecified site of left female breast Category: Medical Plan 40-year-old female patient diagnosed with invasive ductal carcinoma with DCIS returning following left breast lumpectomy with localizer and left axillary sen tinel node biopsy. Pathology revealed a 2 cm invasive ductal carcinoma with DCIS. Margins were negative after revision performed at the primary procedure. Two of 4 sentinel nodes were positive for metastatic disease, (T1c N1a (sn) (AJCC stage 8th addition)). She completed chemotherapy under the direction of Dr. Galindo, and radiation therapy at [facility]. She is now on tamoxifen and tolerating this well. Exam today revealed no evidence of recurrent disease with a well-healed incision in the left breast. I recommended follow-up examination in approximately 6 months, sooner PRN. She is now due for her annual mammogram as well. Orders: Orders MM diagnostic mammo BI Today D05.12 - Intraductal carcinoma in situ of left breast Coding Level of Care Code Est Pt Level 3 (52947) Add On Problem Visit Only Diagnoses Ductal carcinoma in situ of left breast D05.12 Invasive ductal carcinoma of left breast C50.912
[2025-11-05 16:00] VITALS: BP 137/82; PULSE 95; BMI 29.1
--- OUTSIDE RECORDS SUMMARY | 2025-11-05 18:52 | XMS_ITS | Encounter Summary ---
Author Organization [employer] Address [address] [place] [address] Care Team Providers Care Psychologist Social Name Role Phone Kimberli Patel MD Primary Care Provider [phone] Encounter Details Date Type Department Care Team [...] on filedocumented in this encounter Care Teams Psychologist Social Relationship Specialty Start Date End Date Kimberli Patel MD [address] [place] [id number] PCP - General Family Medicine 11/24/21 documented as of this encounter
--- OUTSIDE RECORDS SUMMARY | 2025-11-05 18:52 | XMS_ITS | Clinical Summary ---
Author Organization [facility] Address [address] [place] [phone] Phone Care Team Providers Care Job Coach/Job Developer Name Role Phone Kimberli Ptael MD Primary Care Provider [phone] Cristina Galindo MD Unavailable [phone] Marlyn Mckeon MD Unavailable [phone] Medications loratadine (CLARITIN) 10 mg tablet Take 10 mg by mouth daily. Active calcium carbonate-vitamin D3 1,250 mg (500 mg elemental)-400 units per tablet Take 1 tablet by mouth every morning. 02/13/20 25 Active acetaminophen (TYLENOL) 325 mg tablet Take 650 mg by mouth every 6 (six) hours as needed. Active dexAMETHasone (DECADRON) 4 MG tablet TAKE ONE-HALF TABLET (TWO MG) TWICE DAILY FOR 3 DAYS STARTING THE DAY BEFORE chemotherap 01/16/20 25 Active ondansetron (ZOFRAN-ODT) 8 MG disintegrating tablet DISSOLVE ONE TABLET ON TONGUE EVERY 8 HOURS NEEDED FOR NAUSEA AND VOMITING 01/16/20 25 Active NUVARING 0.12-0.015 mg/24 hr vaginal ring INSERT 1 RING VAGINALLY. LEAVE IN FOR THREE WEEKS THEN REMOVE 01/12/20 25 Active silver sulfADIAZINE (SILVADENE) 1 % cream Apply topically 2 (two) times a day. Apply to affected area as directed. 50 g 1 06/20/20 25 Active Active Problems Problem Noted Date Diagnosed Date Malignant neoplasm of upper- outer quadrant of left female breast 05/09/2025 Social History Tobacco Use Types Packs/Day Years Used Date Smoking Tobacco: Never Smokeless Tobacco: Never Tobacco Cessation:Counseling Given: Not Answered Alcohol Use Standard Drinks/Week Comments Not Currently 0 (1 standard drink = 0.6 oz pur e alcohol) Education Answer Date Recorded Are you interested in more education? Not on pernell e 02/14/2025 Are you concerned about learning? Not on file 02/14/2025 No 02/14/2025 No 02/14/2025 Digital Access Answer Date Recorded No 02/14/2025 No 02/14/2025 Reliable internet access at home? Not on file 02/14/2025 Device with a working camera? Not on file Comments Unknown Sex and Gender Information Value Date Recorded Sex Assigned at Not on file Legal Sex Female 9:56 AM EDT Gender Identity Not on file Sexual Orientation Not on file Last Filed Vital Signs Vital Sign Reading Time Taken Comments Blood Pressure 142/91 06/20/2025 8:38 AM EDT Pulse 91 06/20/2025 8:38 AM EDT Temperature 36.3 C (97.3 F) 06/20/2025 8:38 AM EDT Respiratory Rate 16 03/22/2025 9:13 AM EDT Oxygen Saturation 98% 06/20/2025 8:38 AM EDT Inhaled Oxygen Concentration - - Weight 68.8 kg (151 lb 11.2 oz) 06/20/2025 8:38 AM EDT Height 154.9 cm (5' 1 ) 03/22/2025 9:03 AM EDT Body Mass Index 28.66 03/22/2025 9:03 AM EDT Plan of Treatment Health Maintenance Due Date Last Done Comments DEPRESSION SCREENING 1996 HEPATITIS C SCREENING 01/15/2002 HIV ONE-TIME SCREENING (18-65 YEARS) 01/15/2002 PNEUMOCOCCAL VACCINES (0-49 years) (1 of 2 - PCV) 01/15/2003 PAP SMEAR 01/15/2005 SMOKING STATUS SCREENING (Once After 26 Yrs) 01/15/2010 SCREENING FOR DIABETES 01/15/2019 INFLUENZA VACCINE (#1) 2025 COVID-19 VACCINE (1 - season) 2025 MAMMOGRAM 12/03/2026 12/03/2024, 11/08, 11/08/2024, Additional history exists Adult Td,Tdap Booster 04/13/2029 04/13/2019, 017 HEPATITIS A VACCINES Aged Out No long er eligible based on patient's age to complete this topic HIB VACCINES Aged Out No longer eligi ble based on patient's age to complete this topic MENINGOCOCCAL VACCINES (ACWY) Aged Out No longer eligible based on patient's age to complete this topic MENINGOCOCCAL VACCINES (B) Aged Out N o longer eligible based on patient's age to complete this topic Medical Devices Not on file Procedures Procedure Name Priority Date/Time Associated Diagnosis Comments BI MAMMOGRAM OUTSIDE (NO INTERPRETATION) Routine 12/03/2024 12:05 AM EST from Last 3 Months or Most Recently Relevant to Health Maintenance Results * Mammogram Outside (No Interpretation) (12/03/2024 12:05 AM EST) Narrative SYSTEMGENERATED, DOCUMENTATION - 02/19/2025 11:00 AM EDT This study is for PACS storage only and not for interpretation. us Unknown Unknown MD BUSTOS OUTSIDE IMAGING W/OUT INT ERPRETATION Final Result from Last 3 Months or Most Recently Relevant to Health Maintenance Insurance [facility] FULL [facility] [employer] SAFETY NET FULL Member Subscriber Plan / Payer (Ef fective 2025-Present) Name:Yeny Jackson Relation to Subscriber:Self Name:Yeny Jackson Payer ID:Not on file Group ID:Not on file Type:Medicaid Address: [place] [id number] [facility] [employer] SAFETY NET FULL [employer] [facility] FULL [employer] [facility] NET FULL [facility] SAFETY NET FULL Care Teams Job Coach/Job Developer Relationship Specialty Start Date End Date Kimberli Patel MD [address] [place] [address] PCP - General Family Medicine 02/14/25 Cristina Galindo MD [address] [place] [phone] [email or web address] 03/22/25 Marlyn Mckeon MD [address] [place] [phone] Radiation Oncology 03/22/25 Additional Source Comments The information contained in this document represents components of the legal health record. It is not the complete legal health record.[facility]
--- OUTSIDE RECORDS SUMMARY | 2025-11-05 18:52 | XMS_ITS | Clinical Summary ---
Author Organization [email or web address] Address [address] [facility] [address] [address] [place] [address] Care Team Providers Care Termite Renewal Inspector Name Role Phone Kimberli Patel MD Primary Care Provider [phone] Allergies Active Allergy Reactions Criticality Noted Date [...] THREE WEEKS THEN REMOVE 1 Ring. 11 01/11/2025 Active Active Problems Problem Noted Date Diagnosed Date Malignant neoplasm of upper- outer quadrant of left female breast (CMS/HCC) 05/09/2025 Class 1 obesity 09/27/2024 Mass of upper [...] Encounters Date Type Department Care Team Description 09/17/2025 3:30 PM EST Office Visit [facility] [address] [place] [address] Nicola Reddy CNP Malignant neoplasm of upper-outer quadrant of left breast in female, estrogen receptor positive (CMS/HCC) (HCC) (Primary Dx) 09/17/2025 Travel 09/16/2025 Telephone [facility] [address] [place] [address] Kimberli Patel MD Nurse Triage from Last 3 Months Immunizations Immunization Administration Dates Next Due Tdap 04/13/2019,07/01/2017 Family [...] Sign Reading Time Taken Comments Blood Pressure 138/84 09/17/2025 3:27 PM EST Pulse 92 09/17/2025 3:27 PM EST Temperature 36.8 C (98.3 F) 09/17/2025 3:27 PM EST Respiratory Rate 12 09/17/2025 3:27 PM EST Oxygen Saturation 99% 09/17/2025 3:27 PM EST Inhaled Oxygen Concentration - - Weight 70.3 kg (155 lb) 09/17/2025 3:27 PM EST Height 154.9 cm (5' 1 ) 09/17/2025 3:27 PM EST Body Mass Index 29.29 09/17/2025 3:27 PM EST Plan of Treatment Health Maintenance Due Date Last Done Comments HIV Screening 1984 Disability Screening 1984 Alcohol/Substance Use Screening 1996 Family Planning (PISQ) 01/15/1999 HPV Vaccines (1 - 3-dose series) 01/15/1999 Hepatitis C Screening 01/15/2002 Hepatitis B Vaccines (1 of 3 - 19+ 3-dose series) 01/15/2003 Dental Oral Exam 09/04/2023 03/04/2023 Dental Prophylaxis 09/19/2023 03/18/2023 Depression Screening 01/04/2024 01/04/2023, 01/04/20 SDOH Screening 01/04/2024 01/04/2023 Dental X-Ray: Bitewings 03/05/2024 03/04/2023, 01/21 COVID-19 Vaccine ( season) 2025 Influenza Vaccine (#1) 2025 Tobacco Screening 11/08/2025 11/08/2024 Mammogram 11/29/2025 11/29/2024, 12/2024, 11/08/2024, Additional history exists Cervical Cancer Screening 01/13/2026 HPV/Cotest 01/13/2026 01/13/2021, 01/31/2018 Pap Smear 01/13/2026 01/13/2021 Dental X-Ray: Full Mouth 03/05/2026 03/04/2023 DTaP/Tdap/Td Vaccines (3 - Td or Tdap) [...] patient's age to complete this topic Meningococcal B Vaccine Aged Out No l onger eligible based on patient's age to complete this topic Meningococcal Vaccine Aged Out No william meng eligible based on patient's age to complete this topic Pneumococcal Vaccine: Pediatrics (0 to 5 Years) and At-Risk Patients (6 to 49) Years Aged Out No longer eligible based on [...] TOMOSYNTHESIS LEFT Routine 11/29/2024 9:58 AM EST PROPHYLAXIS - ADULT Routine 03/18/2023 [...] AM EST Narrative 11/30/2024 12:43 PM EST [facility]'s [address] [place] [address] Mammography Report Signed Patient: Yeny Jackson V MR#: [id number] : 1985 Acct:[id number] Age/Sex: 39 / F ADM Date: 11/29/24 Loc: HO.MAMMO Attending Dr: Mariusz Lassiter MD Ordering Physician: Mariusz Lassiter MD Results: 1Nega tive Date of Service: 11/29/24 Follow Up: 1 Year From [facility] Mammogram Procedure(s): MM tomosynthesis diagnostic LT Accession Number(s): [id number] cc: Mariusz Lassiter MD; Kimberli Patel MD [...] axillary lymph node. Electronically signed by: Dulce Richardosn DO 11/30/2024 12:40 PM [facility] Dictated By: Dulce Richardson DO Signed By: <Electronically signed by Dulce Richardson DO in OV> 11/30/24 1240 DD/ 0958 TD/TT: 11/29/24 1018 Client Analyst: Procedure Note Donotuseinterpreter, Image - [facility] [address] [place], [place] [address] Mammography Report Signed Patient: Yeny Jackson R#: [id number] : 1985Acct:[id number] Age/Sex: 39 / FADM Date: 11/29/24 Loc: HO.KATALINAO Attending Dr: Mariusz Lassiter MD Ordering Physician: Mariusz Lassiter MDResults: 1Nega tive Date of Service: 11/29/24Follow Up: 1 Year From Orig inal Mammogram Procedure(s): MM tomosynthesis diagnostic LT Accession Number(s): [id number] cc: Mariusz Lassiter MD; Kimberli Patel MD [...] 11/30/24 1240 DD/ 0958 TD/TT: 11/29/24 1018 Client Analyst: [facility] External Provider IMG BI PROCEDURES Final Result * THINPREP PAP AND HPV mRNA E6/E7 (01/13/2021 1:37 PM EST) Clinical Information: None given [facility] COMMENT SEE COMMENT [facility] Comment: EXPLANATORY NOTE: The Pap is a screening test for cervical cancer. It is not a diagnostic test and is subject to false negative and false positive results. It is most reliable when a satisfactory sample, regularly obtained, is submitted with relevant clinical findings and history, and when the Pap result is evaluated along with historic and current clinical information. Patient Care Secretary: SEE COMMENT [facility] Comment: JXM, CT(ASCP) CT screening location: [place] [address] HPV nRNA E6/E7 Not Detected Not Detected [facility] Comment: Methodology: Flag Football Coach-Mediated Amplification This assay detects E6/E7 viral messenger RNA (mRNA) from 14 high-risk HPV types (16,18,31,33,35,39,45,51,52,56,58,59,66,68). The analytical performance characteristics of this assay have been determined by [employer]. The modifications have not been cleared or approved by the FDA. This assay has been validated pursuant to the CLIA regulations and is used for clinical purposes. For additional information, please refer to http://education.AimWith/faq/JAS676x6 (This link if provided for information/ educational purposes only.) Interpretation/Re sult: Negative for intraepithelial lesion or malignancy. [facility] LMP: NONE GIVEN [facility] Prev. BX: NONE [facility]IVEN [facility] Prev. PAP: NONE [facility]IVEN [facility] SOURCE: None given [facility] Statement Of Adequacy: SEE COMMENT [facility] Comment: Satisfactory for evaluation. Endocervical/transformation zone component present. Age and/or menstrual status not provided 01/13/2021 1:37 PM EST us Venecia Dumont CNM LAB PATHOLOGY ORDERABLES Final Result [facility] [address] from Last 3 Months or Most Recently Relevant to Health Maintenance Insurance [facility] [employer] FULL DENTAL-[facility] MEDICAID LIMITED ADULT DENTAL - N FULL (MEDICAID) Care Teams Termite Renewal Inspector Relationship Specialty Start Date End Date Kimberli Patel MD [address] [place] [phone] PCP - General Family Medicine 11/24/21
== END 2025-11-05 16:12 | disposition home or self-care (01) ==
LOC: HO.HGS 15:34
PROVIDERS: PCP Family Medicine; Visit Provider Surgery
DX: C50.912 Malignant neoplasm of unspecified site of left female breast (principal)
CPT/HCPCS: 99213; G2211

== ENCOUNTER → 2025-11-05 15:33 | Outpatient (BNVA) | payer SELFPAY | PROVIDERS: PCP Family Medicine; Visit Provider Surgery | DX: Z48.817 Encounter for surgical aftercare following surgery on the skin and subcutaneous tissue (principal); C50.912 Malignant neoplasm of unspecified site of left female breast; Z79.899 Other long term (current) drug therapy | CPT/HCPCS: 99212 ==